=== PATIENT | male | born 1970 | race Caucasian/White ===

== ENCOUNTER 2018-12-03 01:17 | Observation (INO) ==
--- NOTE | 2018-12-03 01:26 | Emergency Department Note ---
ED Disposition Clinical Impression: Chest pain syndrome, Atypical chest pain Disposition: Admitted as Observation Condition on Discharge: Good Referrals: Provider,Referral, [Primary Care Provider] - Time of Disposition: 03:05 - Critical Care Critical Care Time: No Attestation: On , the high probability of a clinically significant, sudden or life threatening deterioration of the following system(s) required my full and direct attention, intervention and personal management. The time I documented below is in addition to time spent performing reported procedures but includes the following listed in this critical care notation. Medical Decision Making - Medical Records Medical records reviewed: Yes: I reviewed the patient's medical records. - Nabil Inquiry Pt receiving controlled substance: No Nabil was queried for this patient: No Vital Signs: 12/03/18 01:21 12/03/18 02:02 12/03/18 02:20 Temperature 97.4 F L Temperature Source Oral Pulse Rate [Left Radial] 90 92 H 98 H Respiratory Rate 18 18 18 Blood Pressure [146/88] 130/72 128/76 Blood Pressure Mean [146/88] 91 93 Blood Pressure Source [146/88] Automatic Cuff 02 Sat by Pulse Oximetry 95 93 L 97 Oxygen Delivery Method Room Air Nasal Cannula Nasal Cannula Oxygen Flow Rate (LPM) 2 2 12/03/18 02:48 Temperature Temperature Source Pulse Rate [Left Radial] 87 Respiratory Rate 18 Blood Pressure [146/88] 138/85 Blood Pressure Mean [146/88] 102 Blood Pressure Source [146/88] Automatic Cuff 02 Sat by Pulse Oximetry 97 Oxygen Delivery Method Nasal Cannula Oxygen Flow Rate (LPM) 2 - Lab Data Lab results reviewed: Yes: I reviewed the patient's lab results. Lab Results 12/03/18 01:20: WBC 8.7, RBC 5.64, Hgb 17.3, Hct 49.1, MCV 87.1, MCH 30.6, MCHC 35.2, RDW 13.2, Plt Count 221, MPV 8.0, Neut % (Auto) 47.6, Lymph % (Auto) 45.7, [place] % (Auto) 5.6, Eos % (Auto) 0.8, Baso % (Auto) 0.3, Neut # (Auto) 4.1, Lymph # (Auto) 4.0, [place] # (Auto) 0.5, Eos # (Auto) 0.1, Baso # (Auto) 0.0 04/10/19 01:20: Sodium 140, Potassium 3.4 L, Chloride 102, Carbon Dioxide 26, Anion Gap 15.4 H, BUN 21 H, Creatinine 0.92, Estimated Creat Clear 142, Estimated GFR 89, Est GFR ( Amer) 107, Glucose 131 H, Calcium 9.4, Troponin I < 0.02 12/03/18 01:20: Lipase 183 12/03/18 02:20: Urine Color Yellow, Urine Appearance Clear, Urine pH 6.0, Ur Specific [place] 1.010, Urine Protein Negative, Urine Glucose (UA) 3+, Urine Ketones Negative, Urine Blood Negative, Urine Nitrate Negative, Urine Bilirubin Negative, Urine Urobilinogen 0.2, Ur Leukocyte Esterase Negative, Urine RBC Occasional, Urine Bacteria 1+ Result diagrams: 12/03/18 01:20 12/03/18 01:20 Orders (Tests/Meds): ED MEDICATIONS Generic Name Dose Route Start Last Admin Trade Name Eula PRN Reason Stop Dose Admin Nitroglycerin 1 gm 12/03/18 02:55 12/03/18 02:57 Nitroglycerin 1 Inch Oint Udp TD 12/03/18 02:56 1 gm ONCE ONE Administration Sodium Chloride 10 ml 12/03/18 01:34 Saline Flush 10ml Syringe IV 01/02/19 01:33 NEEDED PRN Maintain IV Site Discontinued Medications Generic Name Dose Route Start Last Admin Trade Name Frevandana PRN Reason Stop Dose Admin Aspirin 324 mg 12/03/18 01:34 12/03/18 01:40 Aspirin 81mg Enteric Coated Tablet PO 12/03/18 01:35 324 mg ONCE ONE Administration Morphine Sulfate 4 mg 12/03/18 02:04 12/03/18 02:22 Morphine 4mg/Ml Syringe IV 12/03/18 02:05 4 mg ONCE ONE Administration Nitroglycerin 0.4 mg 12/03/18 01:34 12/03/18 01:40 Nitrostat 0.4mg Sl Tablet SL 12/03/18 01:35 0.4 mg ONCE ONE Administration Ondansetron HCl 4 mg 12/03/18 02:05 12/03/18 02:22 Zofran 4mg/2ml Vial IV 12/03/18 02:06 4 mg ONCE ONE Administration ORDERS Category Date Time Status CT Chest w/PE protocol [CT angio chest] Stat Cat Scan 12/03/18 02:07 Ordered XR chest portable Stat Exams 12/03/18 01:40 Taken - Physician Consults Physician Consulted: jerri Time: 03:06 Reason -: Admission, Cardiology Eval/Care Comment/Response: obs, serial troponins Time: 03:07 - YUNI Score for Non-Stemi Age of Patient: 40-49 years old Heart Rate: 90-109 bpm Systolic Blood Pressure: 140-159 mmHg Serum Creatinine: 0.80-1.19 mg/dl CHF [place] Class: I-No CHF Other Risk Factors: None Non-Stemi Risk Score: 71 General Adult HPI - General Stated complaint: Chest pain, SOB Time Seen by Provider: 12/03/18 01:23 Mode of Arrival: Ambulatory Source of Information: Patient Limitations: No Limitations - Related Data Home Medications Medication Instructions Recorded Confirmed Albuterol Sulfate [Albuterol HFA 1 - 2 puffs IH Q4-6H PRN 12/03/18 12/03/18 Inhaler] Buspirone HCl [Buspar 10mg tablet] 0.5 mg PO BID 12/03/18 12/03/18 Citalopram Hydrobromide 20 mg PO BID 12/03/18 12/03/18 [Citalopram HBr] Clopidogrel Bisulfate [Plavix 75mg 75 mg PO DAILY 12/03/18 12/03/18 Tab] Empagliflozin/Linagliptin 1 each PO DAILY 12/03/18 12/03/18 [Glyxambi 25 mg-5 mg Tablet] Lisinopril [Lisinopril 10mg Tab] 10 mg PO DAILY 12/03/18 12/03/18 Metformin HCl 1,000 mg PO BID 12/03/18 12/03/18 hydrOXYzine pamoate [Hydroxyzine 25 mg PO NEEDED PRN 12/03/18 12/03/18 Pamoate] Allergies Allergy/AdvReac Type Severity Reaction Status Date / Time diphenhydramine Allergy Unknown AGITATION Verified 12/03/18 01:36 [From BENADRYL] mirtazapine [From REMERON] Allergy Unknown Verified 12/03/18 01:36 [facility] History - Hepatitis A Screen Attestation statement:: This patient has been screened for Hepatitis A risk factors. I have reviewed the patient's past medical history: Yes ROS Obtained: Yes All systems reviewed & no additional complaints - Constitutional Constitutional: Denies fever(s) - Eyes Eyes: Denies blurry vision - Cardiovascular Cardiovascular: Reports chest pain, Reports chest pain at rest, Reports dyspnea, Denies rapid heart rate, Denies slow heart rate - Respiratory Respiratory: Yes system reviewed and no additional complaints, except as docu, Yes chest congestion, No cough Physical Exam - General General appearance: alert, in distress, other (breath holding, apparently in pain lower sternal.) - Head Head exam: atraumatic, normocephalic, normal inspection - Eye Eye exam: Present: other (dysconjugate gaze, chronic) - ENT ENT exam: Present: normal exam, normal oropharynx, mucous membranes moist, TM's normal bilaterally, normal external ear exam, other (poor dentition) - Neck Neck exam: Present: normal inspection, full ROM, trachea midline. Absent: meningismus, lymphadenopathy - Chest Chest inspection: Present: normal inspection, symmetric chest wall rise, tenderness, other (entire sternal area, mild) - Respiratory Respiratory exam: Present: normal lung sounds bilaterally. Absent: respiratory distress, wheezes - Cardiovascular Cardiovascular exam: Present: regular rate, normal rhythm - Abdominal Exam Abdominal exam: Present: soft. Absent: distention, tenderness, guarding, rebound - Extremities Exam Extremities exam: Present: normal inspection, full ROM, normal capillary refill. Absent: calf tenderness - Back Exam Back exam: Present: normal inspection - Neurological Exam Neurological exam: Present: alert, oriented X3 - Skin Skin exam: Present: warm, dry, intact, normal color - Lymphatic Lymphatic Findings: no adenopathy
[2018-12-03 01:48] LABS: Basophils % 0.3 % (0.1-2.0); Eosinophils # 0.1 K/mm3 (0.0-0.4); Eosinophils % 0.8 % (0.1-12.0); Hematocrit 49.1 % (42.0-52.0); Hemoglobin 17.3 g/dL (14.1-18.0); Lymphocytes % 45.7 % (10-50); Mean Corpuscular HGB Conc 35.2 g/dL (31.8-35.4); Mean Corpuscular Hemoglobin 30.6 pg (27.0-31.2); Mean Corpuscular Volume 87.1 fl (80-94); Monocytes # 0.5 K/mm3 (0.1-1.0); Monocytes % 5.6 % (1.7-9.3); Neutrophils # 4.1 K/mm3 (1.8-7.8); Neutrophils % 47.6 % (37.0-80.0); Platelet Count 221 K/mm3 (142-424); Red Blood Count 5.64 M/mm3 (4.60-6.20); Red Cell Distribution Width 13.2 % (11.5-17.5); White Blood Count 8.7 K/mm3 (4.8-10.8)
[2018-12-03 02:01] LABS: Anion Gap 15.4 mEq/L (5-15); Blood Urea Nitrogen 21 mg/dL (7-18); Calcium 9.4 mg/dL (8.5-10.1); Carbon Dioxide 26 mmol/L (21.0-32.0); Chloride 102 mmol/L (98-107); Glucose 131 mg/dL (74-106); Potassium 3.4 mmoL/L (3.5-5.1); Sodium 140 mmol/L (136-145)
[2018-12-03 02:26] LABS: Microscopic, Urine URINE MICROSCOPIC (MICROSCOPIC)
[2018-12-03 02:28] LABS: Appearance,Urine CLEAR (Clear); Bilirubin,Urine Negative (Negative); Blood, Urine Negative (Negative); Color,Urine YELLOW (Yellow); Glucose,Urine (UA) 3+ (Negative); Ketones,Urine Negative (Negative); Leukocyte Esterase,Urine Negative (Negative); Protein,Urine Negative (Negative); Urobilinogen,Urine 0.2 EU/dl (0.2)
[2018-12-03 02:40] LABS: Bacteria,Urine 1+ /lpf; RBC,Urine Occasional #/hpf (0-3)
[2018-12-03 06:17] LABS: Basophils % 0.5 % (0.1-2.0); Eosinophils # 0.1 K/mm3 (0.0-0.4); Eosinophils % 1.1 % (0.1-12.0); Hematocrit 46.7 % (42.0-52.0); Hemoglobin 15.9 g/dL (14.1-18.0); Lymphocytes # 3.6 K/mm3 (0.7-4.5); Lymphocytes % 44.9 % (10-50); Mean Corpuscular Hemoglobin 30.1 pg (27.0-31.2); Mean Corpuscular Volume 88.5 fl (80-94); Mean Platelet Volume 7.9 fl (7.4-10.4); Monocytes # 0.5 K/mm3 (0.1-1.0); Monocytes % 6.4 % (1.7-9.3); Neutrophils # 3.7 K/mm3 (1.8-7.8); Platelet Count 228 K/mm3 (142-424); Red Blood Count 5.27 M/mm3 (4.60-6.20); Red Cell Distribution Width 13.4 % (11.5-17.5); White Blood Count 7.9 K/mm3 (4.8-10.8)
[2018-12-03 06:44] LABS: Anion Gap 11.2 mEq/L (5-15); Blood Urea Nitrogen 21 mg/dL (7-18); Calcium 8.9 mg/dL (8.5-10.1); Carbon Dioxide 29 mmol/L (21.0-32.0); Chloride 104 mmol/L (98-107); Glucose 114 mg/dL (74-106); Potassium 4.2 mmoL/L (3.5-5.1); Sodium 140 mmol/L (136-145)
--- NOTE | 2018-12-03 07:52 | Pharmacy Consult Notes ---
[facility] Pharmacy VTE Monitoring - Patient Demographics Admission date: 12/03/18 Report Date: 12/03/18 Time: 07:51 Allergies/Adverse Reactions: Patient Allergies diphenhydramine [From BENADRYL] Allergy (Unknown, Verified 12/03/18 01:36) AGITATION mirtazapine [From REMERON] Allergy (Unknown, Verified 12/03/18 01:36) Height: 1.78 m Weight: 100.754 kg Patient Problems: Current Active Problems Chest pain syndrome (Acute) Atypical chest pain (Acute) - VTE Risk Labs: VTE Related Lab Results Hgb 15.9 g/dL (14.1-18.0) 12/03/18 05:28 Hct 46.7 % (42.0-52.0) 12/03/18 05:28 Plt Count 228 K/mm3 (142-424) 12/03/18 05:28 BUN 21 mg/dL (7-18) H 12/03/18 05:28 Creatinine 0.92 mg/dL (0.70-1.30) 12/03/18 05:28 Estimated Creat Clear 143 mL/min (50-200) 12/03/18 05:28 VTE Score: 2 VTE Risk Level: Low Risk - Prophylaxis VTE Prophylaxis Ordered?: Yes Types of VTE Prophylaxis: TEDS Knee High Location of Applied Device: Bilateral Lower Extremeties - VTE Diagnosis Confirmed Treatment or plan recommended: Continue Current Treatment
--- NOTE | 2018-12-03 07:57 | History & Physical Report ---
*Admission Date: 12/03/18 *Chief complaint: Chest pain, cough *History of present illness: 48-year-old white male with history of as burgers syndrome and coronary disease, status post stenting of his LAD in 2017, who came to the emergency department with very sharp chest pain that was both exertionally and respiratory related. In the ER he had somewhat of a confusing clinical picture, with some shadowing in his lung bases on CT scan but poor response to Toradol in regards to his sternal pain. Given his history of coronary disease and exertional pain he was admitted to hospital for serial enzymes and rule out SD. [facility] History I have reviewed the patient's past medical history: Yes Medical History: Reports:: Coronary Artery Disease, Diabetes Mellitus Type 2, Hypertension Denies:: Cancer, Diabetes Mellitus Type 1, MRSA *Have you ever received a pneumonia vaccine?: No *Have you received a flu vaccine this season?: No Laterality Cases: Bilateral: Tonsillectomy Other Surgeries: Yes: Hernia Repair Amputation: No - *Social History Smoking Status: Never smoker Alcohol Intake: never Alcohol Intake Frequency:: holidays/special occasions only *Occupational Status:: disabled *Travel in the last 8 weeks: None - Psychiatric History Expresses thoughts of harming self/others: None Suicide Plan Description: No Plan Family Hx:: No significant family history Review of Systems - Review of Systems Review of systems:: pertinent systems reviewed and negative unless documented below - Constitutional Denies anorexia, Denies body ache(s) - Eyes Denies blind spots - ENT Denies abnormal hearing, Denies bleeding gums - *Cardiovascular Reports chest pain, Reports chest pain at rest, Reports shortness of breath, Denies shortness of breath with activity - *Respiratory Denies change in phlegm color, Denies chest congestion, Denies cough - *Gastrointestinal Reports abdominal pain, Reports belching - *Genitourinary Reports difficulty urinating Meds Home Medications Medication Instructions Recorded Confirmed Type Albuterol Sulfate [Albuterol HFA 1 - 2 puffs IH Q4-6H PRN 12/03/18 12/03/18 History Inhaler] Buspirone HCl [Buspar 10mg tablet] 0.5 mg PO BID 12/03/18 12/03/18 History Citalopram Hydrobromide 20 mg PO BID 12/03/18 12/03/18 History [Citalopram HBr] Clopidogrel Bisulfate [Plavix 75mg 75 mg PO DAILY 12/03/18 12/03/18 History Tab] Empagliflozin/Linagliptin 1 each PO DAILY 12/03/18 12/03/18 History [Glyxambi 25 mg-5 mg Tablet] Lisinopril [Lisinopril 10mg Tab] 10 mg PO DAILY 12/03/18 12/03/18 History Metformin HCl 1,000 mg PO BID 12/03/18 12/03/18 History hydrOXYzine pamoate [Hydroxyzine 25 mg PO NEEDED PRN 12/03/18 12/03/18 History Pamoate] Allergies Allergy/AdvReac Type Severity Reaction Status Date / Time diphenhydramine Allergy Unknown AGITATION Verified 12/03/18 01:36 [From BENADRYL] mirtazapine [From REMERON] Allergy Unknown Verified 12/03/18 01:36 Exam Vital signs and Labs for Last 24 Hours: Temp Pulse Resp BP Pulse Ox 98.7 F 77 17 114/67 97 12/03/18 07:16 12/03/18 07:16 12/03/18 07:16 12/03/18 07:16 12/03/18 07:16 Laboratory Results - last 24 hr 12/03/18 01:20: WBC 8.7, RBC 5.64, Hgb 17.3, Hct 49.1, MCV 87.1, MCH 30.6, MCHC 35.2, RDW 13.2, Plt Count 221, MPV 8.0, Neut % (Auto) 47.6, Lymph % (Auto) 45.7, [place] % (Auto) 5.6, Eos % (Auto) 0.8, Baso % (Auto) 0.3, Neut # (Auto) 4.1, Lymph # (Auto) 4.0, [place] # (Auto) 0.5, Eos # (Auto) 0.1, Baso # (Auto) 0.0 12/03/18 01:20: Sodium 140, Potassium 3.4 L, Chloride 102, Carbon Dioxide 26, Anion Gap 15.4 H, BUN 21 H, Creatinine 0.92, Estimated Creat Clear 142, Estimated GFR 89, Est GFR ( Amer) 107, Glucose 131 H, Calcium 9.4, Troponin I < 0.02 04/10/19 01:20: Lipase 183 12/03/18 02:20: Urine Color Yellow, Urine Appearance Clear, Urine pH 6.0, Ur Specific [place] 1.010, Urine Protein Negative, Urine Glucose (UA) 3+, Urine Ketones Negative, Urine Blood Negative, Urine Nitrate Negative, Urine Bilirubin Negative, Urine Urobilinogen 0.2, Ur Leukocyte Esterase Negative, Urine RBC Occasional, Urine Bacteria 1+ 12/03/18 05:28: WBC 7.9, RBC 5.27, Hgb 15.9, Hct 46.7, MCV 88.5, MCH 30.1, MCHC 34.0, RDW 13.4, Plt Count 228, MPV 7.9, Neut % (Auto) 47.0, Lymph % (Auto) 44.9, [place] % (Auto) 6.4, Eos % (Auto) 1.1, Baso % (Auto) 0.5, Neut # (Auto) 3.7, Lymph # (Auto) 3.6, [place] # (Auto) 0.5, Eos # (Auto) 0.1, Baso # (Auto) 0.0 12/03/18 05:28: Sodium 140, Potassium 4.2 D, Chloride 104, Carbon Dioxide 29, Anion Gap 11.2, BUN 21 H, Creatinine 0.92, Estimated Creat Clear 143, Estimated GFR 89, Est GFR ( Amer) 107, Glucose 114 H, Calcium 8.9, Troponin I < 0.02 I & O for Last 24 hours: Intake & Output 11/30/18 12/01/18 12/02/18 12/03/18 11:59 11:59 11:59 11:59 Intake Total 322 / 322 Balance 322 / 322 Weight 222 lb 2 oz Narrative: Patient is pleasant, talkative, in no distress but pain in chest on inspiration. ENT exam clear. No JVD. Abdomen soft nontender. Significant sternal pain with palpation on the left sternal border. Lungs with good air expansion bilaterally. Heart rate regular without murmurs. No peripheral edema. Assessment and Plan (1) Pneumonitis Current visit: Yes Status: Acute Category: Medical Code(s): J18.9 - Pneumonia, unspecified organism Questionable viral versus poor inspiration. Azithromycin for atypical pathogens. (2) Atypical chest pain Current visit: Yes Status: Acute Category: Medical Code(s): R07.89 - Other chest pain SD ruled out. Cardiology evaluation. Given patient's significant risk factors needs significant evaluation (3) Chest pain syndrome Current visit: Yes Status: Acute Category: Medical Code(s): R07.9 - Chest pain, unspecified Patient with possible sternal irritation/costochondritis. Solu-Medrol and Toradol.
--- NOTE | 2018-12-03 08:30 | Consult Report ---
History of Present Illness Consult date: 12/03/18 Requesting physician: Cayetano Spence Consult reason: chest pain Chief complaint: chest pain Additional Medical History:: 1. DM 2. HTN 3. CAD A. LAD SKYLAR, 01/07/2017, On DAPT. 4. Asberger's Syndrome 5. Hyperlipidemia History of present illness: 48-year-old white male with history of asburgers syndrome and coronary disease, status post stenting of his LAD in 2017, who came to the emergency department with very sharp chest pain that was both exertionally and respiratory related. In the ER he had somewhat of a confusing clinical picture, with some shadowing in his lung bases on CT scan but poor response to Toradol in regards to his sternal pain. Given his history of coronary disease and exertional pain he was admitted to hospital for serial enzymes and rule out GA. The above per Dr. Spence. Patient and relate that he was grilling out yesterday when he developed some shortness of breath after brief headache. Symptoms as noted above were both exertionally and respiratory exacerbated. Nitroglycerin at home did not seem to help and patient was brought to the emergency department for further evaluation. Troponins are normal x2. EKG is sinus without acute ST segment changes. Cardiology consulted for evaluation and recommendations. [facility] History Medical History: Reports:: Coronary Artery Disease, Diabetes Mellitus Type 2, Hypertension Denies:: Cancer, Diabetes Mellitus Type 1, MRSA *Have you ever received a pneumonia vaccine?: No *Have you received a flu vaccine this season?: No Laterality Cases: Bilateral: Tonsillectomy Other Surgeries: Yes: Hernia Repair Amputation: No - *Social History Smoking Status: Never smoker Alcohol Intake: never Alcohol Intake Frequency:: holidays/special occasions only *Occupational Status:: disabled *Travel in the last 8 weeks: None - Psychiatric History Expresses thoughts of harming self/others: None Suicide Plan Description: No Plan Family Hx:: No significant family history Meds Home Medications Medication Instructions Recorded Confirmed Type Albuterol Sulfate [Albuterol HFA 1 - 2 puffs IH Q4-6H PRN 12/03/18 12/03/18 History Inhaler] Buspirone HCl [Buspar 10mg tablet] 0.5 mg PO BID 12/03/18 12/03/18 History Citalopram Hydrobromide 20 mg PO BID 12/03/18 12/03/18 History [Citalopram HBr] Clopidogrel Bisulfate [Plavix 75mg 75 mg PO DAILY 12/03/18 12/03/18 History Tab] Empagliflozin/Linagliptin 1 each PO DAILY 12/03/18 12/03/18 History [Glyxambi 25 mg-5 mg Tablet] Lisinopril [Lisinopril 10mg Tab] 10 mg PO DAILY 12/03/18 12/03/18 History Metformin HCl 1,000 mg PO BID 12/03/18 12/03/18 History hydrOXYzine pamoate [Hydroxyzine 25 mg PO NEEDED PRN 12/03/18 12/03/18 History Pamoate] Allergies Allergy/AdvReac Type Severity Reaction Status Date / Time diphenhydramine Allergy Unknown AGITATION Verified 12/03/18 01:36 [From BENADRYL] mirtazapine [From REMERON] Allergy Unknown Verified 12/03/18 01:36 Review of Systems - *Cardiovascular Reports chest pain, Reports shortness of breath with activity - *Respiratory Reports shortness of breath with activity - *Gastrointestinal Denies abdominal pain, Denies nausea - *Musculoskeletal Denies joint pain, Denies back pain - *Neurologic Denies abnormal hearing Exam Vital signs and Labs for Last 24 Hours: Temp Pulse Resp BP Pulse Ox 98.7 F 77 17 114/67 97 12/03/18 07:16 12/03/18 07:16 12/03/18 07:16 12/03/18 07:16 12/03/18 07:16 Laboratory Results - last 24 hr 12/03/18 01:20: WBC 8.7, RBC 5.64, Hgb 17.3, Hct 49.1, MCV 87.1, MCH 30.6, MCHC 35.2, RDW 13.2, Plt Count 221, MPV 8.0, Neut % (Auto) 47.6, Lymph % (Auto) 45.7, [place] % (Auto) 5.6, Eos % (Auto) 0.8, Baso % (Auto) 0.3, Neut # (Auto) 4.1, Lymph # (Auto) 4.0, [place] # (Auto) 0.5, Eos # (Auto) 0.1, Baso # (Auto) 0.0 12/03/18 01:20: Sodium 140, Potassium 3.4 L, Chloride 102, Carbon Dioxide 26, Anion Gap 15.4 H, BUN 21 H, Creatinine 0.92, Estimated Creat Clear 142, Estimated GFR 89, Est GFR ( Amer) 107, Glucose 131 H, Calcium 9.4, Troponin I < 0.02 12/03/18 01:20: Lipase 183 12/03/18 02:20: Urine Color Yellow, Urine Appearance Clear, Urine pH 6.0, Ur Specific [place] 1.010, Urine Protein Negative, Urine Glucose (UA) 3+, Urine Ketones Negative, Urine Blood Negative, Urine Nitrate Negative, Urine Bilirubin Negative, Urine Urobilinogen 0.2, Ur Leukocyte Esterase Negative, Urine RBC Occasional, Urine Bacteria 1+ 12/03/18 05:28: WBC 7.9, RBC 5.27, Hgb 15.9, Hct 46.7, MCV 88.5, MCH 30.1, MCHC 34.0, RDW 13.4, Plt Count 228, MPV 7.9, Neut % (Auto) 47.0, Lymph % (Auto) 44.9, [place] % (Auto) 6.4, Eos % (Auto) 1.1, Baso % (Auto) 0.5, Neut # (Auto) 3.7, Lymph # (Auto) 3.6, [place] # (Auto) 0.5, Eos # (Auto) 0.1, Baso # (Auto) 0.0 12/03/18 05:28: Sodium 140, Potassium 4.2 D, Chloride 104, Carbon Dioxide 29, Anion Gap 11.2, BUN 21 H, Creatinine 0.92, Estimated Creat Clear 143, Estimated GFR 89, Est GFR ( Amer) 107, Glucose 114 H, Calcium 8.9, Troponin I < 0.02 I & O for Last 24 hours: Intake & Output 11/30/18 12/01/18 12/02/18 12/03/18 11:59 11:59 11:59 11:59 Intake Total 322 / 322 Balance 322 / 322 Weight 222 lb 2 oz - *Routine HEENT Exam Head: Present: normocephalic Eye: Present: EOMI, PERRL ENT: Present: mucous membranes moist - *Routine Neck Exam Present: supple. Absent: JVD, carotid bruit - *Routine Respiratory Exam Present: CTA bilaterally. Absent: accessory muscle use, rales, rhonchi, wheezes - *Routine Cardiovascular Exam Present: RRR. Absent: murmur, gallop, rubs - *Routine Abdominal Exam Present: soft. Absent: tenderness, distended, guarding - *Routine Extremities Exam Absent: edema, calf tenderness - *Routine Neurological Exam Present: alert, oriented X3, moving all extremities Assessment and Plan (1) Pneumonitis Current visit: Yes Status: Acute Category: Medical Code(s): J18.9 - Pneumonia, unspecified organism (2) Atypical chest pain Current visit: Yes Status: Acute Category: Medical Code(s): R07.89 - Other chest pain (3) Chest pain syndrome Current visit: Yes Status: Acute Category: Medical Code(s): R07.9 - Chest pain, unspecified - Assessment and plan all Dx Assessment and Plan for all problems:: 1. With history of LAD stent in this diabetic patient with HTN, HLD and asberger's syndrome, which complicates the clinical picture, will recommend proceeding with [facility] today for further evaluation. 2. Further recommendations to follow.
--- NOTE | 2018-12-03 17:24 | Discharge Summary ---
General - General Admission date:: 12/03/18 Discharge date: 12/03/18 HPI HPI: 48-year-old white male with history of as burgers syndrome and coronary disease, status post stenting of his LAD in 2017, who came to the emergency department with very sharp chest pain that was both exertionally and respiratory related. In the ER he had somewhat of a confusing clinical picture, with some shadowing in his lung bases on CT scan but poor response to Toradol in regards to his sternal pain. Given his history of coronary disease and exertional pain he was admitted to hospital for serial enzymes and rule out MD. Hospital Course Hospital Course: Patient was admitted, ruled out for myocardial infarction by enzyme and EKG criteria. Administered azithromycin and Solu-Medrol because of pneumonitis finding on CT scan with some improvement in his substernal/left-sided sternal border pain. He was subjected to left heart catheterization because of significant history and pattern of pain, this revealed the following findings: NGIOGRAPHIC RESULTS: 1. The left main artery normal 2. The left anterior descending artery is proximally normal and has a stent in the mid segment widely patent free of in-stent restenosis with excellent sizing distal and proximal transitioning. 3. The circumflex artery is a large dominant vessel and normal 4. The right coronary artery small and normal 5. The DEWEY ventriculogram reveals normal 65% 6. The left ventricular end-diastolic pressure 10 mmHg IMPRESSION: 1. Widely patent mid LAD stent 2. Normal ejection fraction 3. Normal left ventricular end-diastolic pressure PLAN: 1. Medical management 2. Evaluation of noncardiac symptomatology Patient tolerated the procedure well and this evening was able to be discharged home. He will be discharged home with prednisone for 5 days, azithromycin to finish up antibiotic therapy, anti-inflammatory therapy for his costochondritis- like pain as well as a refill of his Prilosec that he takes chronically. He has an appointment with his regular physician, Dr. Johnson in [place] next Saturday and I have encouraged him to keep this. We will transmit records to Dr. Johnson's office. Objective Vital signs: Temp Pulse Resp BP Pulse Ox 98.0 F 71 18 107/63 L 96 12/03/18 15:41 12/03/18 16:20 12/03/18 16:20 12/03/18 16:20 12/03/18 16:20 Narrative: Patient is pleasant, talkative, eating supper vigorously. Heart rate regular. No murmurs. Radial cath site on the right arm is on a pressure dressing and looks appropriate. Normal distal capillary refill in both hands. No distal edema in the legs. Abdomen soft and nontender. Anterior lung khan are clear. Minimal left-sided sternal border tenderness but vastly improved over previous exams. Results Labs on day of discharge: Labs from last 24 hours 12/03/18 12/03/18 12/03/18 09:30 05:28 05:28 WBC 7.9 RBC 5.27 Hgb 15.9 Hct 46.7 MCV 88.5 MCH 30.1 MCHC 34.0 RDW 13.4 Plt Count 228 MPV 7.9 Neut % (Auto) 47.0 Lymph % (Auto) 44.9 [place] % (Auto) 6.4 Eos % (Auto) 1.1 Baso % (Auto) 0.5 Neut # (Auto) 3.7 Lymph # (Auto) 3.6 [place] # (Auto) 0.5 Eos # (Auto) 0.1 Baso # (Auto) 0.0 Sodium 140 Potassium 4.2 D Chloride 104 Carbon Dioxide 29 Anion Gap 11.2 BUN 21 H Creatinine 0.92 Estimated Creat Clear 143 Estimated GFR 89 Est GFR ( Amer) 107 Glucose 114 H Calcium 8.9 Troponin I < 0.02 < 0.02 Lipase Urine Color Urine Appearance Urine pH Ur Specific [place] Urine Protein Urine Glucose (UA) Urine Ketones Urine Blood Urine Nitrate Urine Bilirubin Urine Urobilinogen Ur Leukocyte Esterase Urine RBC Urine Bacteria 12/03/18 12/03/18 12/03/18 02:20 01:20 01:20 WBC RBC Hgb Hct MCV MCH MCHC RDW Plt Count MPV Neut % (Auto) Lymph % (Auto) [place] % (Auto) Eos % (Auto) Baso % (Auto) Neut # (Auto) Lymph # (Auto) [place] # (Auto) Eos # (Auto) Baso # (Auto) Sodium 140 Potassium 3.4 L Chloride 102 Carbon Dioxide 26 Anion Gap 15.4 H BUN 21 H Creatinine 0.92 Estimated Creat Clear 142 Estimated GFR 89 Est GFR ( Amer) 107 Glucose 131 H Calcium 9.4 Troponin I < 0.02 Lipase 183 Urine Color Yellow Urine Appearance Clear Urine pH 6.0 Ur Specific [place] 1.010 Urine Protein Negative Urine Glucose (UA) 3+ Urine Ketones Negative Urine Blood Negative Urine Nitrate Negative Urine Bilirubin Negative Urine Urobilinogen 0.2 Ur Leukocyte Esterase Negative Urine RBC Occasional Urine Bacteria 1+ 12/03/18 01:20 WBC 8.7 RBC 5.64 Hgb 17.3 Hct 49.1 MCV 87.1 MCH 30.6 MCHC 35.2 RDW 13.2 Plt Count 221 MPV 8.0 Neut % (Auto) 47.6 Lymph % (Auto) 45.7 [place] % (Auto) 5.6 Eos % (Auto) 0.8 Baso % (Auto) 0.3 Neut # (Auto) 4.1 Lymph # (Auto) 4.0 [place] # (Auto) 0.5 Eos # (Auto) 0.1 Baso # (Auto) 0.0 Sodium Potassium Chloride Carbon Dioxide Anion Gap BUN Creatinine Estimated Creat Clear Estimated GFR Est GFR ( Amer) Glucose Calcium Troponin I Lipase Urine Color Urine Appearance Urine pH Ur Specific [place] Urine Protein Urine Glucose (UA) Urine Ketones Urine Blood Urine Nitrate Urine Bilirubin Urine Urobilinogen Ur Leukocyte Esterase Urine RBC Urine Bacteria DS: Diagnosis - Discharge Diagnosis (1) Pneumonitis Status: Acute (2) Atypical chest pain Status: Resolved (3) Chest pain syndrome Status: Resolved Discharge Plan - Patient Discharge Instructions ACTIVITY: Continue current activity DIET: continue same diet Patient Instructions: Cardiac Catheterization, DI for Atypical Chest Pain, Surgical Site Infection - Follow up Plan Follow up with: Sandeep Johnson II, MD [Referring] - 12/09/18 Disposition: Home, Self-Group Home Medications: Home Medications Medication Instructions Recorded Confirmed Type Albuterol Sulfate [Albuterol HFA 1 - 2 puffs IH Q4-6H PRN 12/03/18 12/03/18 History Inhaler] Aspirin [Aspirin 81mg EC Tab] 81 mg PO DAILY 12/03/18 12/03/18 History Azithromycin [Zithromax 250mg 250 mg PO DIRECTED #6 tab 12/03/18 Rx tab] Buspirone HCl [Buspar 10mg tablet] 5 mg PO DAILY 12/03/18 12/03/18 History Cetirizine HCl [Zyrtec] 10 mg PO DAILY 12/03/18 12/03/18 History Citalopram Hydrobromide 20 mg PO BID 12/03/18 12/03/18 History [Citalopram HBr] Clopidogrel Bisulfate [Plavix 75mg 75 mg PO DAILY 12/03/18 12/03/18 History Tab] Empagliflozin/Linagliptin 1 each PO DAILY 12/03/18 12/03/18 History [Glyxambi 25 mg-5 mg Tablet] Ketorolac Tromethamine [Toradol 10 mg PO Q6H PRN 5 Days #15 tablet 12/03/18 Rx 10mg tablet] Lisinopril [Lisinopril 10mg Tab] 10 mg PO DAILY 12/03/18 12/03/18 History Metformin HCl 1,000 mg PO BID 12/03/18 12/03/18 History Omeprazole Magnesium [Prilosec Otc 20 mg PO DAILY #30 tablet. 12/03/18 Rx 20mg Tab] hydrOXYzine HCl [Hydroxyzine HCl] 25 mg PO DAILY 12/03/18 12/03/18 History predniSONE [Deltasone 20mg 20 mg PO BID 7 Days #14 tab 12/03/18 Rx tablet] Prescriptions/Medication Reconciliation: New Ketorolac Tromethamine [Toradol 10mg tablet] 10 mg PO Q6H PRN 5 Days #15 tablet PRN Reason: Moderate To Severe Pain predniSONE [Deltasone 20mg tablet] 20 mg PO BID 7 Days #14 tab Azithromycin [Zithromax 250mg tab] 250 mg PO DIRECTED #6 tab Continue Buspirone HCl [Buspar 10mg tablet] 5 mg PO DAILY Albuterol Sulfate [Albuterol HFA Inhaler] 1 - 2 puffs IH Q4-6H PRN PRN Reason: Shortness Of Breath Or Wheezing Metformin HCl 1,000 mg PO BID Lisinopril [Lisinopril 10mg Tab] 10 mg PO DAILY Clopidogrel Bisulfate [Plavix 75mg Tab] 75 mg PO DAILY Citalopram Hydrobromide [Citalopram HBr] 20 mg PO BID Empagliflozin/Linagliptin [Glyxambi 25 mg-5 mg Tablet] 1 each PO DAILY Aspirin [Aspirin 81mg EC Tab] 81 mg PO DAILY Cetirizine HCl [Zyrtec] 10 mg PO DAILY hydrOXYzine HCl [Hydroxyzine HCl] 25 mg PO DAILY Omeprazole Magnesium [Prilosec Otc 20mg Tab] 20 mg PO DAILY #30 tablet.
== END 2018-12-03 20:53 | disposition home or self-care (01) ==
LOC: ER 01:17 → 2ND 01:17
PROVIDERS: ADMIT Internal Medicine Adolescent Medicine; ATTEND Internal Medicine Adolescent Medicine
CPT/HCPCS: 36415; 71010; 71045; 71275; 80048; 81001; 83690; 84484; 85025; 93005; 93458; 96374; 96375; 99152; 99285; C1725; C1760; C1769; G0378; J0456; J1644; J2405; Q9967

== ENCOUNTER → 2019-03-30 09:30 | Outpatient (POV) | payer MEDICARE, SELFPAY ==
[2019-03-30 11:15] LABS: Adenovirus F 40/41, stool Not Detected (NotDetected); Astrovirus Not Detected (NotDetected); Campylobacter Not Detected (NotDetected); Clostridium Difficile A/B, PCR Not Detected (NotDetected); Cryptosporidium Not Detected (NotDetected); Cyclospora Cayetanesis Not Detected (NotDetected); Entamoeba histolytica Not Detected (NotDetected); Enteroaggregative E coli Not Detected (NotDetected); Enteropathogenic E coli Not Detected (NotDetected); Enterotoxigenic E coli Not Detected (NotDetected); Giardia lamblia Not Detected (NotDetected); Norovirus Not Detected (NotDetected); Plesimonas Shigalloides, PCR Not Detected (NotDetected); Rotavirus A Not Detected (NotDetected); Salmonella, PCR Not Detected (NotDetected); Sapovirus Not Detected (NotDetected); Shiga-like toxin E coli Not Detected (NotDetected); Shigella Enterovasive E coli Not Detected (NotDetected); Vibrio Cholerae Not Detected (NotDetected); Vibrio, PCR Not Detected (NotDetected); Yersinia Entercolitica, PCR Not Detected (NotDetected)
== END ==
PROVIDERS: PCP Internal Medicine Infectious Disease; Visit Provider Nurse Practitioner Family
DX: R19.7 Diarrhea, unspecified (principal)
CPT/HCPCS: 87506

== ENCOUNTER → 2019-05-11 14:56 | Outpatient (POV) | payer MEDICARE, SELFPAY | PROVIDERS: PCP Internal Medicine Infectious Disease; Visit Provider Nurse Practitioner Family | DX: Z00.00 Encounter for general adult medical examination without abnormal findings (principal) ==

== ENCOUNTER 2020-12-11 18:58 | Emergency (ER) | payer MEDICARE, SELFPAY ==
[2020-12-11 19:00] VITALS: BP 130/84; PULSE 90; RESP 21; TEMP 37.1; O2SAT 98; BMI 30.1
--- NOTE | 2020-12-11 19:04 | XR_ITS ---
PROCEDURE: XR SHOULDER LT MIN 2V CLINICAL INDICATION: INJURY Posttraumatic pain COMPARISON: No exams were available for comparison FINDINGS: No fracture or dislocation. No lytic or blastic change. There is normal mineralization. There is an old left 2nd rib fracture. The joint spaces are well-preserved. No significant degenerative/arthritic changes. No erosive changes evident. Other findings:None. IMPRESSION: No acute findings. Dictated by: Sandeep Jauregui MD 12/12/2020 06:06 Sandeep Jauregui MD in [place] 12/12/2020 06:06
--- NOTE | 2020-12-11 19:04 | XR_ITS ---
PROCEDURE: XR LUMBAR SPINE 2-3V CLINICAL INDICATION: INJURY Posttraumatic pain COMPARISON: CT ABDPELW CT ABD PELVIS W/ CONTRAST from 02/04/2015 FINDINGS: Mild levoscoliosis. No acute fracture or dislocation. Degenerative disc disease is present at L5-S1. Facet arthritic changes are present at L5-S1 with bony sclerosis IMPRESSION: No acute findings. Dictated by: Sandeep Jauregui MD 12/12/2020 06:04 Sandeep Jauregui MD in [place] 12/12/2020 06:04
--- NOTE | 2020-12-11 19:45 | HMH.EDUTC ---
[facility] [place] Clinical Impression: Shoulder sprain Qualifiers: Encounter type: initial encounter Shoulder sprain type: unspecified sprain Laterality: left Qualified Code(s): S43.402A - Unspecified sprain of left shoulder joint, initial encounter Disposition: Home, Self-Care Condition on Discharge: Good Instructions: How To Perform RICE (Rest, Ice, Compress, Elevate), DI for Low Back Pain, Contusion Additional Instructions: *Ibuprofen yanely 6 hours with meal as needed for pain/inflammation if your doctor has told you that you can take it *Not additional anti-inflammatory like motrin, aleve, advil with the above amount of ibuprofen. You can still take Tylenol every 4 hours as needed if you need something else for pain *Ice 20 minutes every 2 hours for the first 48 hours after the initial injury followed by moist heat every 20 minutes 3-4 times a day to affected area *Keep this area active, no movement leads to more stiffness, However take it easy and avoid heavy lifting pushing or pulling *Follow up with you family doctor if no improvement for further treatment Dr Castano office will call with appointment Return if needed Straight to ER if any life threatening symptoms Referrals: Sandeep Johnson II, MD [Primary Care Provider] - As needed Kina Castano MD [Physician] - (Office will call with appointment) Time of Disposition: 20:26 Medical Decision Making - Nabil Inquiry Pt receiving controlled substance: No Nabil was queried for this patient: No Vital Signs: 12/11/20 19:00 Temperature 98.8 F Temperature Source Oral Pulse Rate [Right Brachial] 90 Respiratory Rate 21 Blood Pressure [Right Arm] 130/84 Blood Pressure Mean [Right Arm] 99 Blood Pressure Source [Right Arm] Automatic Cuff Blood Pressure Position [Right Arm] Sitting 02 Sat by Pulse Oximetry 98 Oxygen Delivery Method Room Air Orders (Tests/Meds): ORDERS Category Date Time Status Lumbar spine XR 2-3 views [XR lumbar spine 2-3V] Stat Exams 12/11/20 19:04 Taken XR shoulder LT 1V Stat Exams 12/11/20 20:07 Taken XR shoulder LT min 2V Stat Exams 12/11/20 19:04 Taken - Radiology Data #1 Image(s): Shoulder Image Reviewed: Yes I reviewed the patient's radiology image Preliminary Findings: No Fracture Seen No acute fracture #2 Image(s): L-Spine Image Reviewed: Yes I reviewed the patient's radiology image No acute finding - Physician Consults Physician Consulted: Omaira Time: 20:26 Reason -: Orthopedic Eval/Care Comment/Response: Patient discussed with Dr Castano and she advised to place in sling, RICE and office will call with appointment [facility] [place] - General Stated complaint: [id number]/18@1300 r shoulder injury Time Seen by Provider: 12/11/20 19:45 Mode of Arrival: Ambulatory Source of Information: Patient, Spouse Limitations: No Limitations Description of Symptoms (Recalled from Triage Doc. 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
--- NOTE | 2020-12-11 20:07 | XR_ITS ---
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 COMPARISON: CR XR SHOULDER LT MIN 2V from 12/11/2020 FINDINGS: No fracture or dislocation. No lytic or blastic change. There is normal mineralization. The joint spaces are well-preserved. No significant degenerative/arthritic changes. No erosive changes evident. Other findings:None. IMPRESSION: No acute findings. Dictated by: Sandeep Jauregui MD 12/12/2020 05:55 Sandeep Jauregui MD in [place] 12/12/2020 05:55
[2020-12-11 20:31] VITALS: BP 130/84; PULSE 90; RESP 21; TEMP 37.1; O2SAT 98
== END 2020-12-11 20:32 | disposition home or self-care (01) ==
PROVIDERS: Emergency Provider Nurse Practitioner; PCP Internal Medicine Infectious Disease
DX: S43.402A Unspecified sprain of left shoulder joint, initial encounter (principal); W30.89XA Contact with other specified agricultural machinery, initial encounter; Y92.014 Private driveway to single-family (private) house as the place of occurrence of the external cause; I10 Essential (primary) hypertension; E78.5 Hyperlipidemia, unspecified; E11.9 Type 2 diabetes mellitus without complications; F41.8 Other specified anxiety disorders; Z79.899 Other long term (current) drug therapy
CPT/HCPCS: 72100; 73020; 73030; 99202; G0463

== ENCOUNTER → 2021-01-17 12:26 | Outpatient (CLI) | payer MEDICARE, MEDICAID, SELFPAY ==
--- NOTE | 2021-01-17 12:37 | MR_ITS ---
PROCEDURE: MR KNEE LT WO CON CLINICAL INDICATION: PAIN IN LEFT KNEE After kneeling down, pt raised arm up and heard a pop x2days ago. Lateral sided knee pain with swelling. No injury or trauma. No prior. COMPARISON: No exams were available for comparison TECHNIQUE: Routine multiplanar multi echo sequences are performed without gadolinium enhancement. FINDINGS: There is hyper buckling of the PCL. The PCL however appears intact. The ACL fibers are sparse and not well-defined suggesting sprain or partial tear. A complete tear is not felt to be present. The collateral ligaments and patellar tendon appear intact. There is a focal small area of discontinuity with slight increase in T2 signal involving the anterior aspect of quadriceps tendon just proximal to the patellar insertion suggesting a partial tear. There is a prominent amount of prepatellar subcutaneous soft tissue edema. No meniscal tear apparent. The patellar cartilage is well preserved. Minimal osteoarthritic changes are present involving the patellofemoral joint as well as the medial and lateral compartment. No significant knee joint effusion. IMPRESSION: Suspect sprain or partial tear of the ACL. There is some hyper buckling of the PCL. Partial tear of the anterior aspect of the quadriceps tendon just proximal to the patellar insertion by 7 mm. Prominent subcutaneous soft tissue swelling in the prepatellar region with mild osteoarthritic change Dictated by: Sandeep Jauregui MD 01/18/2021 11:10 Sandeep Jauregui MD in [place] 01/18/2021 11:10
== END ==
PROVIDERS: PCP Internal Medicine Infectious Disease; Visit Provider Physician Assistant Medical
DX: M25.562 Pain in left knee (principal)
CPT/HCPCS: 73721

== ENCOUNTER 2021-03-03 16:00 | Outpatient (RCR) | payer MEDICARE, MEDICAID, SELFPAY | END 2021-03-03 16:05 | disposition home or self-care (01) | LOC: PT 16:00 | PROVIDERS: PCP Internal Medicine Infectious Disease; Visit Provider Orthopaedic Surgery Adult Reconstructive Orthopaedic Surgery | DX: M25.562 Pain in left knee (principal) | CPT/HCPCS: 97014; 97110; 97163; G0283 ==

== ENCOUNTER 2021-12-04 17:28 | Emergency (ER) | payer MEDICARE, MEDICAID, SELFPAY ==
[2021-12-04 18:05] VITALS: BP 128/75; PULSE 75; RESP 18; TEMP 36.8; O2SAT 98; BMI 29.7
--- NOTE | 2021-12-04 18:56 | HMH.EDUTC ---
[facility] [place] Clinical [place]ression: Epistaxis Disposition: Home, Self-Care Condition on Discharge: Good Instructions: Nosebleed, DI for Nosebleed Additional Instructions: Use the afrin nasal spray as needed every 6 hours for bleeding for the next 2 days only. Follow up with your primary care physician. IF YOU HAVE WORSENING BLEEDING OR ANY CONCERNS, PLEASE RETURN AND GO TO THE ER [facility] Referrals: Sandeep Johnson II, MD [Primary Care Provider] - Time of Disposition: 19:35 Medical Decision Making - Medical Records Medical records reviewed: No: I reviewed the patient's medical records. - Nabil Inquiry Pt receiving controlled substance: No Vital Signs: 12/04/21 18:05 12/04/21 19:13 Temperature 98.3 F 98.3 F Temperature Source Oral Pulse Rate 75 Pulse Rate [Right Brachial] 75 Respiratory Rate 18 18 Blood Pressure 128/75 Blood Pressure [Right Arm] 128/75 Blood Pressure Mean [Right Arm] 92 Blood Pressure Source [Right Arm] Automatic Cuff Blood Pressure Position [Right Arm] Sitting 02 Sat by Pulse Oximetry 98 Oxygen Delivery Method Room Air Orders (Tests/Meds): ED MEDICATIONS Discontinued Medications Generic Name Dose Route Start Last Admin Trade Name Freq PRN Reason Stop Dose Admin Oxymetazoline HCl 1 ml 12/04/21 19:09 12/04/21 19:12 Oxymetazoline Nasal [place] 0.05% 15ml NS 12/04/21 19:10 2 spr ONCE ONE Administration [facility] [place] - General Stated complaint: nose bleed Time Seen by Provider: 12/04/21 18:56 Mode of Arrival: Ambulatory Source of Information: Patient Limitations: No Limitations Description of Symptoms (Recalled from Triage Doc. by RN): PATIENT C/O PERIODIC NOSE BLEEDS FROM LEFT NOSTRIL SINCE 0200 THI AM. REPORTS LONGEST ONE LASTED APPROX 2 HOURS HEENT Symptoms (Recalled from RN notes): Yes Resp Symptoms (Recalled from RN notes): No Skin Symptoms (Recalled from RN notes): No MS Symptoms (Recalled from RN notes): No Functional Status (Recalled from RN notes): WNL - History of Present Illness Provider Complaint: He states that since 0200 this morning, he has had several nose bleeds. He has a history of having nose bleeds, but they are not usually this bad or this frequent. - Related Data Home Medications Medication Instructions Recorded Confirmed Albuterol Sulfate [Ventolin HFA 1 - 2 puffs IH Q4-6H PRN 12/03/18 01/30/19 Inhaler] Aspirin [Aspirin 81mg EC Tab] 81 mg PO DAILY 12/03/18 01/30/19 Buspirone HCl [Buspar 10mg 5 mg PO DAILY 12/03/18 01/30/19 tablet] Cetirizine HCl [Zyrtec] 10 mg PO DAILY 12/03/18 01/30/19 Citalopram Hydrobromide 20 mg PO BID 12/03/18 01/30/19 [Citalopram HBr] Clopidogrel Bisulfate [Plavix 75mg 75 mg PO DAILY 12/03/18 01/30/19 Tab] Empagliflozin/Linagliptin 1 each PO DAILY 12/03/18 01/30/19 [Glyxambi 25 mg-5 mg Tablet] Metformin HCl [Metformin 1000mg 1,000 mg PO BID 12/03/18 01/30/19 Tablets] hydrOXYzine HCL [Hydroxyzine HCl] 25 mg PO DAILY 12/03/18 01/30/19 lisinopriL [Lisinopril 10mg Tab] 10 mg PO DAILY 12/03/18 01/30/19 Previous Rx's Medication Instructions Recorded Ketorolac Tromethamine [Toradol 10 mg PO Q6H PRN 5 Days #15 tab 12/03/18 10mg tablet] Omeprazole Magnesium [Prilosec Otc 20 mg PO DAILY #30 tablet. 12/03/18 20mg Tab] Allergies Allergy/AdvReac Type Severity Reaction Status Date / Time diphenhydramine Allergy Unknown AGITATION Verified 01/30/19 11:12 [From BENADRYL] mirtazapine [From REMERON] Allergy Unknown Verified 01/30/19 11:12 - Worker's Comp Is this a Worker's Comp case?: No [facility] History - Hepatitis A Screen Drug use history?: No High risk sexual behaviors?: No History of sexually transmitted infection?: No Currently employed?: No Childcare worker?: No Do you have indoor plumbing?: Yes Do you have electricity?: Yes Attestation statement:: This patient has been screened for Hepatitis A risk factors. I have r
[2021-12-04 19:13] VITALS: BP 128/75; PULSE 75; RESP 18; TEMP 36.8; O2SAT 98
== END 2021-12-04 19:41 | disposition home or self-care (01) ==
PROVIDERS: Emergency Provider Nurse Practitioner Family; PCP Internal Medicine Infectious Disease
DX: R04.0 Epistaxis (principal); E11.9 Type 2 diabetes mellitus without complications; F41.8 Other specified anxiety disorders; I10 Essential (primary) hypertension; E78.5 Hyperlipidemia, unspecified; I25.10 Atherosclerotic heart disease of native coronary artery without angina pectoris; Z79.899 Other long term (current) drug therapy
CPT/HCPCS: G0463; 99212

== ENCOUNTER 2022-02-12 14:22 | Emergency (ER) | payer MEDICARE, SELFPAY ==
[2022-02-12 14:55] VITALS: BP 121/89; PULSE 77; RESP 19; TEMP 36.7; O2SAT 98; BMI 29.4
--- NOTE | 2022-02-12 15:21 | HMH.EDUTC ---
[facility] [place] Clinical Impression: Left rib fracture Qualifiers: Encounter type: initial encounter Rib fracture type: single rib Fracture type: closed Qualified Code(s): S22.32XA - Fracture of one rib, left side, initial encounter for closed fracture Disposition: Home, Self-Care Condition on Discharge: Good Instructions: DI for Rib Fracture, Rib Fracture, Ibuprofen Additional Instructions: Over the counter lidocaine patches may help with pain in ribs Make sure to be taking deep breaths and cough when needed Follow up with your Family Doctor if no improvement or any worsening of symptoms REturn if needed Straight to ER if any life threatening symptoms You said you have Ibuprofen at home make sure to take it as directed Referrals: Sandeep Johnson II, MD [Primary Care Provider] - As needed Time of Disposition: 16:52 Medical Decision Making - Nabil Inquiry Pt receiving controlled substance: No Nabil was queried for this patient: No Vital Signs: 02/12/22 14:55 Temperature 98.1 F Temperature Source Oral Pulse Rate [Right Brachial] 77 Respiratory Rate 19 Blood Pressure [Right Arm] 121/89 Blood Pressure Mean [Right Arm] 99 Blood Pressure Source [Right Arm] Automatic Cuff Blood Pressure Position [Right Arm] Sitting 02 Sat by Pulse Oximetry 98 Oxygen Delivery Method Room Air - Radiology Data #1 Image(s): Chest (with bilateral ribs) Image Reviewed: Yes I have reviewed radiologist's interpretation IMPRESSION: Question nondisplaced fracture of the anterior left 6th rib. [facility] [place] - General Stated complaint: swollen spot on stomach Time Seen by Provider: 02/12/22 15:21 Mode of Arrival: Ambulatory Source of Information: Patient Limitations: No Limitations Description of Symptoms (Recalled from Triage Doc. by RN): PATIENT C/O PAIN TO BILATERAL RIB AREA X 3 DAYS HEENT Symptoms (Recalled from RN notes): No Resp Symptoms (Recalled from RN notes): No Skin Symptoms (Recalled from RN notes): No MS Symptoms (Recalled from RN notes): Yes Functional Status (Recalled from RN notes): WNL - History of Present Illness Provider Complaint: Patient states that he has been doing alot of yard work and doing alot of pulling and pushing States that he is not sure if he may have pulled something or what but he feels a little swollen on his bottom of his lower ribs Denies known injury - Related Data Home Medications Medication Instructions Recorded Confirmed Albuterol Sulfate [Ventolin HFA 1 - 2 puffs IH Q4-6H PRN 12/03/18 01/30/19 Inhaler] Aspirin [Aspirin 81mg EC Tab] 81 mg PO DAILY 12/03/18 01/30/19 Buspirone HCl [Buspar 10mg 5 mg PO DAILY 12/03/18 01/30/19 tablet] Cetirizine HCl [Zyrtec] 10 mg PO DAILY 12/03/18 01/30/19 Citalopram Hydrobromide 20 mg PO BID 12/03/18 01/30/19 [Citalopram HBr] Clopidogrel Bisulfate [Plavix 75mg 75 mg PO DAILY 12/03/18 01/30/19 Tab] Empagliflozin/Linagliptin 1 each PO DAILY 12/03/18 01/30/19 [Glyxambi 25 mg-5 mg Tablet] Metformin HCl [Metformin 1000mg 1,000 mg PO BID 12/03/18 01/30/19 Tablets] hydrOXYzine HCL [Hydroxyzine HCl] 25 mg PO DAILY 12/03/18 01/30/19 lisinopriL [Lisinopril 10mg Tab] 10 mg PO DAILY 12/03/18 01/30/19 Previous Rx's Medication Instructions Recorded Ketorolac Tromethamine [Toradol 10 mg PO Q6H PRN 5 Days #15 tab 12/03/18 10mg tablet] Omeprazole Magnesium [Prilosec Otc 20 mg PO DAILY #30 tablet. 12/03/18 20mg Tab] Allergies Allergy/AdvReac Type Severity Reaction Status Date / Time diphenhydramine Allergy Unknown AGITATION Verified 01/30/19 11:12 [From BENADRYL] mirtazapine [From REMERON] Allergy Unknown Verified 01/30/19 11:12 - Worker's Comp Is this a Worker's Comp case?: No [facility] History - Hepatitis A Screen Attestation statement:: This patient has been screened for Hepatitis A risk factors. I have reviewed the patient's past medical history: Yes Medical History: Reports:: An
--- NOTE | 2022-02-12 15:28 | XR_ITS ---
FINAL REPORT CLINICAL HISTORY: loki anterior rib pain COMPARISON: 12/03/2018 FINDINGS: RIBS BILATERAL W/CHEST MIN 4 VIEWS The heart is normal in size. The mediastinum is unremarkable. The lungs are clear. There is no pneumothorax. Six images of the bilateral ribs show mild irregularity of the anterior left 6th rib, nondisplaced fracture is not excluded. IMPRESSION: Question nondisplaced fracture of the anterior left 6th rib. Reviewed, Interpreted and Dictated by Daron Colón III, MD Transcribed by Vandana Oro Authenticated and [facility]
[2022-02-12 16:49] VITALS: BP 121/89; PULSE 77; RESP 19; TEMP 36.7; O2SAT 98
== END 2022-02-12 17:02 | disposition home or self-care (01) ==
PROVIDERS: Emergency Provider Nurse Practitioner; PCP Internal Medicine Infectious Disease
DX: S22.32XA Fracture of one rib, left side, initial encounter for closed fracture (principal); X58.XXXA Exposure to other specified factors, initial encounter
CPT/HCPCS: 71111; 99212; G0463

== ENCOUNTER → 2022-02-13 11:57 | Outpatient (CLI) | payer MEDICARE, MEDICAID, SELFPAY ==
--- NOTE | 2022-02-13 12:07 | US_ITS ---
FINAL REPORT CLINICAL HISTORY: ABDOMINAL PAIN FINDINGS: Sonographic images of the abdomen were obtained. The liver is fatty infiltrated. The gallbladder contains sludge. There is no evidence of biliary ductal dilatation. The common hepatic duct measures 2 mm, which is within normal limits. The pancreas is partially obscured. The spleen is borderline enlarged at 13.4 cm. The right kidney measures 12 cm in length. The left kidney measures 11 cm in length. There is normal renal echogenicity. There is no evidence of hydronephrosis. The aorta has an unremarkable appearance. Limited images of the inferior vena cava are unremarkable. IMPRESSION: Fatty infiltration of the liver. Sludge in the gallbladder. Spleen borderline enlarged. Reviewed, Interpreted and Dictated by Daron Colón III, MD Transcribed by Heydi Shukla Authenticated and [facility]
== END ==
PROVIDERS: PCP Physician Assistant Medical; Visit Provider Physician Assistant Medical
DX: R10.11 Right upper quadrant pain (principal); R10.811 Right upper quadrant abdominal tenderness
CPT/HCPCS: 76700

== ENCOUNTER 2022-03-28 03:18 | Emergency (ER) | payer MEDICARE, MEDICAID, SELFPAY ==
[2022-03-28] VITALS (8 sets, daily range): BP systolic 112–143; BP diastolic 77–93; PULSE 67–83; RESP 16–18; TEMP 36.9; O2SAT 94–98; BMI 29.4
--- NOTE | 2022-03-28 03:15 | ECG_ITS ---
APPROVED REPORT Exam: Resting ECG HR:72 bpm ECG Measurements Heart Rate 72 AXES NJ 177 P 27 QRSd 88 QRS -12 QT 359 T -8 QTc 383 Conclusion SINUS RHYTHM MINIMAL VOLTAGE CRITERIA FOR LVH, CONSIDER NORMAL VARIANT [MEETS CRITERIA IN ONE OF: R(aVL), S(V1), R(V5), R(V5/V6)+S(V1)] POSSIBLE ANTERIOR MYOCARDIAL INFARCTION , PROBABLY OLD [30 ms Q WAVE IN V3/V4, OR R < 0.2 mV IN V4] BORDERLINE ECG INTERPRETATION BASED ON A DEFAULT AGE OF 42 YEARS UNCONFIRMED REPORT Electronically signed by : Cayetano Spence MD 03/28/2022 21:01:55
--- NOTE | 2022-03-28 03:18 | XR_ITS ---
PROCEDURE INFORMATION: Exam: XR Chest Exam date and time: 03/28/2022 3:16 AM Age: 52 years old Clinical indication: Sternal or substernal pain; Additional info: Chest pain TECHNIQUE: Imaging protocol: Radiologic exam of the chest. Views: 2 views. COMPARISON: CR XR RIBS BI MIN 4V W CXR1V 02/12/2022 3:27 PM FINDINGS: Lungs: Unremarkable. No consolidation. Pleural spaces: Unremarkable. No pleural effusion. No pneumothorax. Heart/Mediastinum: Unremarkable. No cardiomegaly. Bones/joints: Unremarkable. IMPRESSION: No acute findings.
--- NOTE | 2022-03-28 03:20 | HMH.EDGENADL ---
ED Disposition Clinical Impression: Chest wall pain Cough Qualifiers: Cough type: acute Qualified Code(s): R05.1 - Acute cough Disposition: Home, Self-Care Condition on Discharge: Good Instructions: DI for Atypical Chest Pain, DI for Chest Pain Additional Instructions: You have been evaluated for chest pain, diagnosed with chest wall pain. Please take anti-inflammatory medication like ibuprofen every 8 hours. Take [id number] cough suppressant as needed. Follow-up with your primary care doctor in 1 to 2 days for symptom recheck. Return to the emergency department at once for any new or worsening symptoms, pain, difficulty breathing, other concerns. Prescriptions: Ibuprofen [Ibuprofen 600mg Tablet] 600 mg PO Q6HP PRN #20 tab PRN Reason: Mild Pain Transmission Status: Pending to [facility] Referrals: Osiris Chu PA [Primary Care Provider] - Time of Disposition: 07:48 - Critical Care Critical Care Time: No Attestation: On , the high probability of a clinically significant, sudden or life threatening deterioration of the following system(s) required my full and direct attention, intervention and personal management. The time I documented below is in addition to time spent performing reported procedures but includes the following listed in this critical care notation. Medical Decision Making - Medical Records Medical records reviewed: Yes: I reviewed the patient's medical records. - Nabil Inquiry Pt receiving controlled substance: No Vital Signs: 03/28/22 03:18 03/28/22 05:00 03/28/22 05:36 Temperature 98.4 F Temperature Source Oral Pulse Rate 83 78 73 Pulse Rate [Right] 74 Respiratory Rate 18 18 16 Blood Pressure 133/88 115/84 124/86 Blood Pressure [Right Arm] 143/92 H Blood Pressure Mean 98 Blood Pressure Mean [Right Arm] 109 02 Sat by Pulse Oximetry 94 L 94 L 95 03/28/22 05:42 03/28/22 06:12 03/28/22 06:42 Temperature Temperature Source Pulse Rate 71 72 Pulse Rate [Right] Respiratory Rate 16 16 Blood Pressure 121/93 H 127/83 112/78 Blood Pressure [Right Arm] Blood Pressure Mean 100 97 87 Blood Pressure Mean [Right Arm] 02 Sat by Pulse Oximetry 94 L 96 03/28/22 07:27 Temperature Temperature Source Pulse Rate 73 Pulse Rate [Right] Respiratory Rate 16 Blood Pressure 112/77 Blood Pressure [Right Arm] Blood Pressure Mean 86 Blood Pressure Mean [Right Arm] 02 Sat by Pulse Oximetry 96 - Lab Data Lab Results 03/28/22 03:19: WBC 7.3, RBC 4.76, Hgb 16.3, Hct 44.4, MCV 93.2, MCH 34.3 H, MCHC 36.8 H, RDW 13.3, Plt Count 208, MPV 8.4, Neut % (Auto) 45.3, Lymph % (Auto) 44.9, [place] % (Auto) 7.3, Eos % (Auto) 1.4, Baso % (Auto) 1.0, Neut # (Auto) 3.3, Lymph # (Auto) 3.3, [place] # (Auto) 0.5, Eos # (Auto) 0.1, Baso # (Auto) 0.1 03/28/22 03:19: D-Dimer 0.56 H 03/28/22 03:19: Sodium 138, Potassium 3.9, Chloride 104, Carbon Dioxide 28, Anion Gap 9.9, BUN 15, Creatinine 0.90, Estimated Creat Clear 129, Estimated GFR 89, Est GFR ( Amer) 108, Glucose 125 H, Calcium 8.8, Troponin I < 0.01 03/28/22 06:01: Troponin I < 0.01 Result diagrams: 03/28/22 03:19 03/28/22 03:19 Orders (Tests/Meds): ED MEDICATIONS Discontinued Medications Generic Name Dose Route Start Last Admin Trade Name Eula PRN Reason Stop Dose Admin Aspirin 324 mg 03/28/22 03:18 03/28/22 03:22 Aspirin 81mg Chewable Tablet PO 03/28/22 03:19 324 mg ONCE ONE Administration Iopamidol 70 ml 03/28/22 05:12 03/28/22 05:13 Iopamidol-370 (76%);100ml Bottle IV 03/28/22 05:13 70 ml ONCE ONE Administration Ketorolac Tromethamine 15 mg 03/28/22 04:50 03/28/22 04:52 Ketorolac 30mg/Ml Vial IV 03/28/22 04:51 15 mg ONCE ONE Administration Sodium Chloride 50 ml 03/28/22 05:12 03/28/22 05:13 0.9 % Sodium Chloride 50 Ml Vial IV 03/28/22 05:13 50 ml ONCE ONE Administration Sodium Chloride 10 ml 03/28/22 05:12 03/28/22 05:13
[2022-03-28 03:26] LABS: Basophils # 0.1 K/mm3 (0-0.2); Eosinophils # 0.1 K/mm3 (0.0-0.4); Eosinophils % 1.4 % (0.1-12.0); Hematocrit 44.4 % (42.0-52.0); Hemoglobin 16.3 g/dL (14.1-18.0); Lymphocytes # 3.3 K/mm3 (0.7-4.5); Lymphocytes % 44.9 % (10-50); Mean Corpuscular HGB Conc 36.8 g/dL (31.8-35.4); Mean Corpuscular Hemoglobin 34.3 pg (27.0-31.2); Mean Corpuscular Volume 93.2 fl (80-94); Mean Platelet Volume 8.4 fl (7.4-10.4); Monocytes # 0.5 K/mm3 (0.1-1.0); Monocytes % 7.3 % (1.7-9.3); Neutrophils # 3.3 K/mm3 (1.8-7.8); Neutrophils % 45.3 % (37.0-80.0); Platelet Count 208 K/mm3 (142-424); Red Blood Count 4.76 M/mm3 (4.60-6.20); Red Cell Distribution Width 13.3 % (11.5-17.5); White Blood Count 7.3 K/mm3 (4.8-10.8)
--- NOTE | 2022-03-28 03:27 | PC.NURSE ---
pt kelley from xray
[2022-03-28 03:34] LABS: Anion Gap 9.9 mEq/L (5-15); Blood Urea Nitrogen 15 mg/dl (9-20); Calcium 8.8 mg/dl (8.4-10.2); Carbon Dioxide 28 mmol/L (22.0-30.0); Chloride 104 mmol/L (98-107); Creatinine Clearance Estimated 129 mL/min (50-200); Estimated Glomerular Filt Rate 89 ml/min (>60); GFR (African American) 108 ML/MIN (>60); Glucose 125 mg/dl (74-100); Potassium 3.9 mmoL/L (3.5-5.1); Sodium 138 mmol/L (136-145)
[2022-03-28 03:39] LABS: D-Dimer 0.56 ug/mL (0.0-0.5)
[2022-03-28 03:50] LABS: Troponin I < 0.01 ng/ml (0.00-0.034)
--- NOTE | 2022-03-28 04:18 | PC.NURSE ---
patient states that he is feeling some better, it comes and goes patient requesting toradol for pain, ED doctor informed of conversation with patient
--- NOTE | 2022-03-28 04:50 | CT_ITS ---
PROCEDURE INFORMATION: Exam: CTA Chest With Contrast Exam date and time: 03/28/2022 5:00 AM Age: 52 years old Clinical indication: Abnormal findings; Abnormal diagnostic tests; Elevated d-dimer TECHNIQUE: Imaging protocol: Computed tomographic angiography of the chest with contrast. 3D rendering (Not supervised by radiologist): MIP and/or 3D reconstructed images were created by the technologist. Radiation optimization: All CT scans at this facility use at least one of these dose optimization techniques: automated exposure control; mA and/or kV adjustment per patient size (includes targeted exams where dose is matched to clinical indication); or iterative reconstruction. Contrast material: ISOVUE; Contrast volume: 70 ml; Contrast route: INTRAVENOUS (IV); COMPARISON: [facility] CT angio chest 12/03/2018 2:29 AM FINDINGS: Pulmonary arteries: Normal. No pulmonary emboli. Aorta: Few atheromatous aortic calcifications. Lungs: Unremarkable. No consolidation. No masses. Pleural spaces: Unremarkable. No pneumothorax. No pleural effusion. Heart: Unremarkable. No cardiomegaly. No pericardial effusion. Lymph nodes: Unremarkable. No enlarged lymph nodes. Liver: Possible hepatomegaly with mild fatty infiltration. Gallbladder and bile ducts: Contracted gallbladder. Bones/joints: Subtle spondylosis with convex right scoliosis. Soft tissues: Unremarkable. IMPRESSION: 1. No evidence of pulmonary embolus or aortic dissection. 2. Possible hepatomegaly with fatty infiltration. 3. Other nonacute findings above.
--- NOTE | 2022-03-28 04:55 | PC.NURSE ---
pt medicated per OCT @ this time
--- NOTE | 2022-03-28 05:01 | PC.NURSE ---
pt gone to ct scan
--- NOTE | 2022-03-28 05:13 | PC.NURSE ---
pt return from ct
--- NOTE | 2022-03-28 05:13 | PC.NURSE ---
pt ambulated to BR @ this time
--- NOTE | 2022-03-28 06:06 | PC.NURSE ---
2nd trop drawn @ this time
--- NOTE | 2022-03-28 06:33 | PC.NURSE ---
rounded on pt updated on POC awaiting on trop and ct scan results
[2022-03-28 06:36] LABS: Troponin I < 0.01 ng/ml (0.00-0.034)
--- NOTE | 2022-03-28 07:16 | PC.NURSE ---
pt ambulated to and from restroom
--- NOTE | 2022-03-28 07:28 | PC.NURSE ---
pt and family denies any needs at this time, states they seen the ct on the portal, instructed that I will let the MD know CT is showing on their portal. PT resting with no complaints
--- NOTE | 2022-03-28 07:45 | PC.NURSE ---
ER in room speaking to pt
--- NOTE | 2022-03-28 07:57 | PC.NURSE ---
RN to DC pt at this time
== END 2022-03-28 08:07 | disposition home or self-care (01) ==
PROVIDERS: Emergency Provider Emergency Medicine; PCP Physician Assistant Medical
DX: R07.89 Other chest pain (principal); R05.1 Acute cough; I25.10 Atherosclerotic heart disease of native coronary artery without angina pectoris; I10 Essential (primary) hypertension
CPT/HCPCS: 71046; 71275; 80048; 84484; 85025; 85378; 93005; 96374; 99285; Q9967

== ENCOUNTER 2022-05-27 15:14 | Emergency (ER) | payer MEDICARE, MEDICAID, SELFPAY ==
--- NOTE | 2022-05-27 15:34 | PC.NURSE ---
WHILE IN [facility] WAITING ROOM, PATIENT STATES HE WAS FEELING SHAKY, DIAPHORETIC, AND C/O SUDDEN ONSET OF CHEST PAIN/TIGHTNESS. Jackson HOUSTON APRN NOTIFIED Barbara LUNSFORD RN AND PATIENT SENT TO ER.
--- NOTE | 2022-05-27 15:44 | ECG_ITS ---
APPROVED REPORT Exam: Resting ECG HR:79 bpm ECG Measurements Heart Rate 79 AXES SC 181 P 29 QRSd 77 QRS -12 QT 344 T 3 QTc 379 Conclusion SINUS RHYTHM Left atrial abnormality LVH Old anteroseptal changes ABNORMAL ECG UNCONFIRMED REPORT Electronically signed by : Cayetano Spence MD 05/27/2022 16:39:56
--- NOTE | 2022-05-27 15:44 | XR_ITS ---
PROCEDURE INFORMATION: Exam: XR Chest Exam date and time: 05/27/2022 4:03 PM Age: 52 years old Clinical indication: Chest wall pain; Additional info: Cp TECHNIQUE: Imaging protocol: Radiologic exam of the chest. Views: 1 view. COMPARISON: CR XR CHEST 2V 03/28/2022 3:16 AM FINDINGS: Lungs: Opacities in the left base may represent atelectasis or pneumonia.. Pleural spaces: Unremarkable. No pleural effusion. No pneumothorax. Heart/Mediastinum: Unremarkable. No cardiomegaly. Bones/joints: Unremarkable. IMPRESSION: Opacities in the left base may represent atelectasis or pneumonia..
--- NOTE | 2022-05-27 15:45 | HMH.EDGENADL ---
Discharge Plan Disposition Patient Disposition: Home, Self-Care Condition: Good Prescriptions Prescriptions: New sulfamethoxazole-trimethoprim [Bactrim DS] 800-160 mg tablet 1 tab PO Q12H 7 Days Qty: 14 0RF No Action clopidogrel 75 MG tablet 75 mg PO DAILY citalopram 20 MG tablet 20 mg PO BID metformin 1,000 MG tablet 1,000 mg PO BID buspirone 10 MG tablet 5 mg PO DAILY Rx Instructions: PATIENT TAKES 1/2 TABLET BID lisinopril 10 MG tablet 10 mg PO DAILY albuterol sulfate [Ventolin HFA] 18 GM HFA aerosol inhaler 1 - 2 puffs inhalation Q4-6H PRN (Reason: Shortness Of Breath Or Wheezing) empagliflozin-linagliptin [Glyxambi] 1 EACH tablet 1 ea PO DAILY cetirizine [Zyrtec] 10 MG tablet 10 mg PO DAILY aspirin 81 MG tablet,delayed release (DR/EC) 81 mg PO DAILY hydroxyzine HCl 25 MG tablet 25 mg PO DAILY ketorolac 10 MG tablet 10 mg PO Q6H PRN (Reason: Moderate To Severe Pain) 5 Days Qty: 15 0RF omeprazole magnesium 20 MG tablet,delayed release (DR/EC) 20 mg PO DAILY Qty: 30 3RF ibuprofen 600 MG tablet 600 mg PO Q6HP PRN (Reason: Mild Pain) Qty: 20 0RF Referrals Follow up/Referrals: Osiris Chu PA [Primary Care Provider] - See instructions Activity Restrictions/Add. Instructions Additional Instructions/Restrictions: You have been evaluated for left leg wound, diagnosed with an abscess. Please take antibiotics as prescribed. Tylenol and ibuprofen for pain. Follow-up with your primary care doctor in 1 to 2 days for symptom recheck. Return to the emergency department at once for any new or worsening symptoms, redness, fevers, pain, other concerns Clinical Impressions Clinical Impression: Abscess of leg, right, Chest pain Instructions Patient Instructions: DI for Chest Pain, DI for Skin Abscess Discharge ED Provider: Dee Gomes General Adult HPI General Chief complaint: PAIN Stated complaint: possibly infected wound RT leg, chest pain Time Seen by Provider: 05/27/22 15:45 History of Present Illness HPI narrative: 52-year-old male presenting to the emergency department with a wound to his right lower leg and chest pain. Leg wound started a few days ago. Initially was a red, raised bump. Over the last 2 days it has become a wound that is scabbed. Tender to touch. Surrounding erythema. No signs of systemic illness like fevers, chills, nausea, vomiting. No other rashes on his skin. He was on his way to urgent care when he developed chest pain. Is described as a tightness, burning, located just below the ribs on both sides. No radiation of the jaw, arm, back. Occasionally feels like is difficult to breathe. He has a history of asthma and uses inhaler this morning upon waking up. No cough. No current shortness of breath. No abdominal pain, nausea, vomiting. Related Data Home Medications Medication Instructions Recorded Confirmed albuterol sulfate 90 mcg/actuation 1 - 2 puffs inhalation Q4-6H PRN 12/03/18 01/30/19 aerosol inhaler (Ventolin HFA) Shortness Of Breath Or Wheezing aspirin 81 mg tablet,delayed 81 mg PO DAILY HEART HEALTH 12/03/18 01/30/19 release buspirone 10 mg tablet 5 mg PO DAILY Depression 12/03/18 01/30/19 cetirizine 10 mg tablet (Zyrtec) 10 mg PO DAILY Allergy symptoms 12/03/18 01/30/19 citalopram 20 mg tablet 20 mg PO BID Depression 12/03/18 01/30/19 clopidogrel 75 mg tablet 75 mg PO DAILY Blood thinner 12/03/18 01/30/19 empagliflozin 25 mg-linagliptin 5 1 ea PO DAILY DM 12/03/18 01/30/19 mg tablet (Glyxambi) hydroxyzine HCl 25 mg tablet 25 mg PO DAILY Anxiety 12/03/18 01/30/19 lisinopril 10 mg tablet 10 mg PO DAILY HTN 12/03/18 01/30/19 metformin 1,000 mg tablet 1,000 mg PO BID DM 12/03/18 01/30/19 Previous Rx's Medication Instructions Recorded ketorolac 10 mg tablet 10 mg PO Q6H PRN Moderate To 12/03/18 Severe Pain 5 days #15 tabs omeprazole magnesium 20 mg 20 mg PO
[2022-05-27 15:49] VITALS: BP 141/98; PULSE 83; RESP 18; TEMP 36.7; O2SAT 97; BMI 29.4
[2022-05-27 15:52] LABS: Basophils % 0.5 % (0.1-2.0); Eosinophils # 0.1 K/mm3 (0.0-0.4); Hematocrit 49.4 % (42.0-52.0); Hemoglobin 16.4 g/dL (14.1-18.0); Lymphocytes # 1.6 K/mm3 (0.7-4.5); Lymphocytes % 33.1 % (10-50); Mean Corpuscular HGB Conc 33.1 g/dL (31.8-35.4); Mean Corpuscular Hemoglobin 30.4 pg (27.0-31.2); Mean Corpuscular Volume 91.6 fl (80-94); Mean Platelet Volume 8.6 fl (7.4-10.4); Monocytes # 0.3 K/mm3 (0.1-1.0); Monocytes % 6.3 % (1.7-9.3); Neutrophils # 2.8 K/mm3 (1.8-7.8); Neutrophils % 58.2 % (37.0-80.0); Platelet Count 214 K/mm3 (142-424); Red Blood Count 5.39 M/mm3 (4.60-6.20); Red Cell Distribution Width 13.3 % (11.5-17.5); White Blood Count 4.9 K/mm3 (4.8-10.8)
[2022-05-27 16:02] LABS: Chloride 106 mmol/L (98-107); Sodium 142 mmol/L (136-145)
[2022-05-27 16:04] LABS: Alanine Aminotransferase 35 U/L (12-78); Alkaline Phosphatase 114 U/L (38-126); Aspartate Amino Transferase 40 U/L (17-59); Bilirubin,Total 0.7 mg/dl (0.2-1.3); Blood Urea Nitrogen 11 mg/dl (9-20); Carbon Dioxide 24 mmol/L (22.0-30.0); Creatinine Clearance Estimated 166 mL/min (50-200); Estimated Glomerular Filt Rate 119 ml/min (>60); GFR (African American) 144 ML/MIN (>60); Lipase 142 U/L (23-300)
[2022-05-27 16:05] LABS: Albumin Level 4.2 g/dl (3.5-5.0); Albumin/Globulin Ratio 1.7 (1.1-1.8); Calcium 8.6 mg/dl (8.4-10.2); Globulin 2.5 g/dL (1.3-3.2); Glucose 200 mg/dl (74-100); Total Protein,Serum 6.7 g/dl (6.3-8.2)
--- NOTE | 2022-05-27 16:12 | PC.NURSE ---
urinal provided to pt
[2022-05-27 16:16] LABS: Troponin I < 0.01 ng/ml (0.00-0.034)
--- NOTE | 2022-05-27 16:32 | PC.NURSE ---
pt refusing vital signs at this time
--- NOTE | 2022-05-27 17:52 | PC.NURSE ---
LAB NOTIFIED THAT REPEAT TROP IS READY TO BE DRAWN PER DR MACIEL
[2022-05-27 18:02] VITALS: BP 123/82; PULSE 66; RESP 22; O2SAT 96
--- NOTE | 2022-05-27 18:09 | PC.NURSE ---
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
[2022-05-27 18:30] VITALS: BP 125/85; PULSE 69; RESP 17; O2SAT 96
[2022-05-27 18:51] LABS: Troponin I < 0.01 ng/ml (0.00-0.034)
[2022-05-27 18:59] VITALS: BP 127/79; PULSE 64; RESP 18; TEMP 36.7; O2SAT 97
[2022-05-27 19:00] VITALS: BP 129/79; PULSE 70; RESP 22; O2SAT 95
== END 2022-05-27 19:06 | disposition home or self-care (01) ==
LOC: UTC 15:19 → ER 15:37
PROVIDERS: Emergency Medicine; Emergency Provider Nurse Practitioner; PCP Physician Assistant Medical
DX: L02.415 Cutaneous abscess of right lower limb (principal); L02.213 Cutaneous abscess of chest wall
CPT/HCPCS: 36415; 71045; 80053; 83690; 84484; 85025; 93005; 99284

== ENCOUNTER 2022-10-02 13:13 | Emergency (ER) | payer MEDICARE, SELFPAY ==
--- NOTE | 2022-10-02 14:46 | EXP.UTC ---
Discharge Plan Disposition Patient Disposition: Home, Self-Care Condition: Good Prescriptions Prescriptions: New benzonatate [benzonatate] 100 mg capsule 100 mg PO TIDP PRN (Reason: Cough) Qty: 30 0RF methylprednisolone 4 mg Tablets,Dose Pack 4 mg PO DIRECTED Qty: 21 0RF amoxicillin-pot clavulanate 875-125 mg Tablet 1 tab PO Q12H Qty: 20 0RF No Action clopidogrel 75 MG tablet 75 mg PO DAILY citalopram 20 MG tablet 20 mg PO BID metformin 1,000 MG tablet 1,000 mg PO BID buspirone 10 MG tablet 5 mg PO DAILY Rx Instructions: PATIENT TAKES 1/2 TABLET BID lisinopril 10 MG tablet 10 mg PO DAILY albuterol sulfate [Ventolin HFA] 18 GM HFA aerosol inhaler 1 - 2 puffs inhalation Q4-6H PRN (Reason: Shortness Of Breath Or Wheezing) empagliflozin-linagliptin [Glyxambi] 1 EACH tablet 1 ea PO DAILY cetirizine [Zyrtec] 10 MG tablet 10 mg PO DAILY aspirin 81 MG tablet,delayed release (DR/EC) 81 mg PO DAILY hydroxyzine HCl 25 MG tablet 25 mg PO DAILY ketorolac 10 MG tablet 10 mg PO Q6H PRN (Reason: Moderate To Severe Pain) 5 Days Qty: 15 0RF omeprazole magnesium 20 MG tablet,delayed release (DR/EC) 20 mg PO DAILY Qty: 30 3RF ibuprofen 600 MG tablet 600 mg PO Q6HP PRN (Reason: Mild Pain) Qty: 20 0RF sulfamethoxazole-trimethoprim [Bactrim DS] 800-160 mg tablet 1 tab PO Q12H 7 Days Qty: 14 0RF Referrals Follow up/Referrals: Provider,Referral, MD [Primary Care Provider] - See instructions Activity Restrictions/Add. Instructions Additional Instructions/Restrictions: Drink plenty of fluids. Take tylenol or ibuprofen for pain or fever. Take the medications as directed. Follow up with your regular doctor. GO TO THE ER FOR ANY WORSENING SYMPTOMS Clinical Impressions Clinical Impression: Bronchitis, Acute viral syndrome Instructions Patient Instructions: DI for Acute Bronchitis, DI for Viral Syndrome Discharge ED Provider: Abisai Palmer [facility] General Stated complaint: Cough fever Congestion drainage sore throat Time Seen by Provider: 10/02/22 14:46 History of Present Illness Provider Complaint: He states that for the past 2 days he has had low grade fever, chills, body aches, sinus congestion and chest congestion. Related Data Home Medications Medication Instructions Recorded Confirmed albuterol sulfate 90 mcg/actuation 1 - 2 puffs inhalation Q4-6H PRN 12/03/18 01/30/19 aerosol inhaler (Ventolin HFA) Shortness Of Breath Or Wheezing aspirin 81 mg tablet,delayed 81 mg PO DAILY HEART HEALTH 12/03/18 01/30/19 release buspirone 10 mg tablet 5 mg PO DAILY Depression 12/03/18 01/30/19 cetirizine 10 mg tablet (Zyrtec) 10 mg PO DAILY Allergy symptoms 12/03/18 01/30/19 citalopram 20 mg tablet 20 mg PO BID Depression 12/03/18 01/30/19 clopidogrel 75 mg tablet 75 mg PO DAILY Blood thinner 12/03/18 01/30/19 empagliflozin 25 mg-linagliptin 5 1 ea PO DAILY DM 12/03/18 01/30/19 mg tablet (Glyxambi) hydroxyzine HCl 25 mg tablet 25 mg PO DAILY Anxiety 12/03/18 01/30/19 lisinopril 10 mg tablet 10 mg PO DAILY HTN 12/03/18 01/30/19 metformin 1,000 mg tablet 1,000 mg PO BID DM 12/03/18 01/30/19 Previous Rx's Medication Instructions Recorded ketorolac 10 mg tablet 10 mg PO Q6H PRN Moderate To 12/03/18 Severe Pain 5 days #15 tabs omeprazole magnesium 20 mg 20 mg PO DAILY GERD ##30 12/03/18 tablet,delayed release ibuprofen 600 mg tablet 600 mg PO Q6HP PRN Mild Pain #20 03/28/22 tabs sulfamethoxazole 800 1 tab PO Q12H 7 days #14 tabs 05/27/22 mg-trimethoprim 160 mg tablet (Bactrim DS) amoxicillin 875 mg-potassium 1 tab PO Q12H #20 tabs 10/02/22 clavulanate 125 mg tablet benzonatate 100 mg capsule 100 mg PO TIDP PRN Cough #30 caps 10/02/22 methylprednisolone 4 mg tablets in 4 mg PO DIRECTED #21 tabs 10/02/22 a dose pack Allergies Allergy/AdvReac Type Severity Reaction Status Date
[2022-10-02 14:50] VITALS: BP 119/68; PULSE 72; RESP 20; TEMP 37; O2SAT 95; BMI 29.4
[2022-10-02 15:08] LABS: UTC Strep Screen (Rapid) Negative (Negative)
[2022-10-02 15:09] LABS: UTC Influenza A Antigen Negative (Negative); UTC Influenza B Antigen Negative (Negative)
[2022-10-02 16:00] VITALS: BP 119/68; PULSE 72; RESP 20; TEMP 37; O2SAT 95
== END 2022-10-02 16:00 | disposition home or self-care (01) ==
PROVIDERS: Emergency Provider Nurse Practitioner Family
DX: J40 Bronchitis, not specified as acute or chronic (principal); B34.9 Viral infection, unspecified
CPT/HCPCS: 87804; 87880; 99212; 99214; G0463

== ENCOUNTER 2023-01-29 17:00 | Emergency (ER) | payer MEDICARE, MEDICAID, SELFPAY ==
[2023-01-29 17:15] VITALS: BP 127/73; PULSE 71; RESP 18; TEMP 36.6; O2SAT 99; BMI 29.4
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
[2023-01-29 18:24] VITALS: BP 127/73; PULSE 71; RESP 18; TEMP 36.6; O2SAT 99
== END 2023-01-29 18:26 | disposition home or self-care (01) ==
PROVIDERS: Emergency Provider Nurse Practitioner
DX: S60.222A Contusion of left hand, initial encounter (principal); W27.0XXA Contact with workbench tool, initial encounter
CPT/HCPCS: 73130; 99212; 99214; G0463

== ENCOUNTER 2023-06-26 16:00 | Outpatient (RCR) | payer MEDICARE, MEDICAID, SELFPAY | END 2023-06-26 17:00 | disposition home or self-care (01) | LOC: PT 16:00 | PROVIDERS: Visit Provider Physician Assistant | DX: M54.50 Low back pain, unspecified (principal); S46.391A Other injury of muscle, fascia and tendon of triceps, right arm, initial encounter | CPT/HCPCS: 97010; 97014; 97035; 97110; 97163; 97164; 97530; G0283 ==

== ENCOUNTER → 2023-07-30 08:57 | Outpatient (CLI) | payer MEDICARE, MEDICAID, SELFPAY ==
--- NOTE | 2023-07-30 09:02 | MR_ITS ---
FINAL REPORT CLINICAL HISTORY: RIGHT TRICEPS TENDONITIS FINDINGS: Multiplanar MR imaging of the right elbow was performed without contrast. Motion on many of the images decreases exam sensitivity. The bony structures are intact without evidence of fracture, bone bruise or marrow edema. There is no evidence of osteochondral lesion. The ligaments appear intact. There is a small intrasubstance tear at the proximal common extensor tendon. The common flexor tendon is intact. The biceps tendon is intact. There is distal triceps tendinitis without tear. The brachialis tendon is intact. The musculature has an unremarkable appearance. No soft tissue mass or cyst is identified. There is a small joint effusion. No focal abnormality is identified of the ulnar nerve. IMPRESSION: Small intrasubstance tear of the proximal common extensor tendon. Mild distal triceps tendinitis without tear. Reviewed, Interpreted and Dictated by Daron Colón III, MD Transcribed by Sergo Mejia Authenticated and [facility]
== END ==
PROVIDERS: PCP Nurse Practitioner; Visit Provider Physician Assistant
DX: M25.521 Pain in right elbow (principal)
CPT/HCPCS: 73221

== ENCOUNTER 2023-10-04 14:32 | Outpatient (CLI) | payer MEDICARE, MEDICAID, SELFPAY ==
--- NOTE | 2023-10-04 14:36 | MR_ITS ---
FINAL REPORT CLINICAL HISTORY: LBP with left leg pain FINDINGS: Multiplanar MR imaging of the lumbar spine was performed without contrast. On the sagittal T2-weighted images, disc degeneration is seen at several levels. There is mild anterolisthesis of L5 on S1. Several Schmorl's nodes are seen. There is mild leftward curvature. There is no evidence of fracture. The conus has an unremarkable appearance. T12-L1: There is no significant canal stenosis or neural foraminal narrowing. L1-2: There is no significant canal stenosis or neural foraminal narrowing. L2-3: An annular bulge and facet arthropathy are present. There is a left paracentral annular tear with mild right neural foraminal narrowing. L3-4: An annular bulge and facet arthropathy are present. There is mild right neural foraminal narrowing. L4-5: An annular bulge and facet arthropathy are present. There is a small central disc protrusion with moderate right and mild left neural foraminal narrowing. L5-S1: An annular bulge and facet arthropathy are present. There is a left posterolateral disc protrusion resulting in left lateral recess stenosis and severe left neural foraminal narrowing. There is left L5 nerve root impingement. IMPRESSION: Left posterolateral disc protrusion at L5-S1 results in severe left neural foraminal narrowing, left lateral recess stenosis and left L5 nerve root impingement. Multilevel degenerative disc disease and spondylosis. Small central disc protrusion at L4-5 with mild left neural foraminal narrowing. Reviewed, Interpreted and Dictated by Daron Colón III, MD Transcribed by Vandana Oro Authenticated and [facility]
== END 2023-10-04 23:59 ==
LOC: RAD 14:33
PROVIDERS: PCP Nurse Practitioner; Visit Provider Orthopaedic Surgery Adult Reconstructive Orthopaedic Surgery
DX: M54.50 Low back pain, unspecified (principal)
CPT/HCPCS: 72148; 76376

== ENCOUNTER 2023-12-16 14:56 | Outpatient (CLI) | payer MEDICARE, MEDICAID, SELFPAY ==
--- NOTE | 2023-12-16 14:59 | XR_ITS ---
FINAL REPORT CLINICAL HISTORY: lower back pain, lumbar disc protrusion L5-S1 FINDINGS: LUMBAR SPINE 3 views were obtained. There is no acute fracture. There is no malalignment. The disc spaces are preserved. There is moderate facet sclerosis in the lower lumbar spine. There is no soft tissue abnormality. IMPRESSION: No acute bony abnormality. Reviewed, Interpreted and Dictated by Mariusz Loomis MD Transcribed by Gayle Olmstead Authenticated and [facility]
== END 2023-12-16 23:59 | disposition home or self-care (01) ==
LOC: LAB.DROPOF 14:57
PROVIDERS: PCP Nurse Practitioner Family; Visit Provider Nurse Practitioner Family
DX: M51.26 Other intervertebral disc displacement, lumbar region (principal)
CPT/HCPCS: 72100

== ENCOUNTER 2023-12-17 18:41 | Outpatient (CLI) | payer MEDICARE, MEDICAID, SELFPAY ==
--- OUTSIDE RECORDS SUMMARY | 2023-12-17 18:44 | XMS_ITS ---
Author Name Luis Cavanaugh Address [address] [place] [address] Organization Unknown Address [address] [place] [id number] ALLERGIES AND ADVERSE REACTIONS No information ASSESSMENT No information CHIEF COMPLAINT No information MEDICATIONS No information OBJECTIVE DATA No information PHYSICAL EXAMINATION No information TREATMENT PLAN Planned Care Start Date Provider Encounter for Check-up [phone] [facility] PROBLEMS No information RESULTS No information REVIEW OF SYSTEMS No information SUBJECTIVE DATA No information VITAL SIGNS No information
[2023-12-17 20:23] LABS: Alanine Aminotransferase 34 U/L (12-78); Albumin Level 4.5 g/dl (3.5-5.0); Alkaline Phosphatase 107 U/L (38-126); Anion Gap 12.7 mEq/L (5-15); Aspartate Amino Transferase 29 U/L (17-59); Blood Urea Nitrogen 16 mg/dl (9-20); Calcium 9.7 mg/dl (8.4-10.2); Carbon Dioxide 28 mmol/L (22.0-30.0); Chloride 105 mmol/L (98-107); Estimated Glomerular Filt Rate 142 ml/min (>60); GFR (African American) 172 ML/MIN (>60); Globulin 2.2 g/dL (1.3-3.2); Glucose 134 mg/dl (74-100); Potassium 4.7 mmoL/L (3.5-5.1); Sodium 141 mmol/L (136-145); Total Protein,Serum 6.7 g/dl (6.3-8.2)
[2023-12-17 20:46] LABS: Erythrocyte Sedimentation Rate 3 mm/hr (0-20)
[2023-12-19 10:42] LABS: RA Latex Turbid. <10.0 IU/mL (<14.0)
[2023-12-19 16:28] LABS: Antinuclear Antibodies, IFA Negative (.)
== END 2023-12-17 23:59 | disposition home or self-care (01) ==
LOC: LAB.DROPOF 18:42
PROVIDERS: PCP Nurse Practitioner Family; Visit Provider Nurse Practitioner Family
DX: I10 Essential (primary) hypertension (principal); M25.50 Pain in unspecified joint
CPT/HCPCS: 80053; 84550; 85651; 86038; 86431

== ENCOUNTER 2024-01-15 13:49 | Emergency (ER) | payer MEDICARE, MEDICAID, SELFPAY ==
[2024-01-15] VITALS (9 sets, daily range): BP systolic 101–140; BP diastolic 70–93; PULSE 62–72; RESP 13–17; TEMP 36.4–36.7; O2SAT 94–98; BMI 29.4
--- NOTE | 2024-01-15 13:48 | ECG_ITS ---
APPROVED REPORT Exam: Resting ECG HR:68 bpm ECG Measurements Heart Rate 68 AXES AR 169 P 32 QRSd 87 QRS 14 QT 365 T 6 QTc 382 Conclusion SINUS RHYTHM INFERIOR MYOCARDIAL INFARCTION , PROBABLY OLD [40+ ms Q WAVE AND/OR ST/T ABNORMALITY IN II/aVF] ABNORMAL ECG No acute STEMI Electronically signed by : JOSEPH FISHMAN, 01/15/2024 19:28:06
--- NOTE | 2024-01-15 13:56 | XR_ITS ---
FINAL REPORT CLINICAL HISTORY: Precordial Chest pain COMPARISON: 05/27/2022 FINDINGS: The heart size is normal. The mediastinum is normal. The lungs are underinflated. There is no focal infiltrate or edema. There are no pleural effusions. There is no pneumothorax. There is no osseous abnormality. IMPRESSION: No acute cardiopulmonary process Reviewed, Interpreted and Dictated by Mariusz Loomis MD Transcribed by Heydi Shukla Authenticated and [facility]
--- NOTE | 2024-01-15 13:57 | PC.NURSE ---
Dr. Willis at [facility] for pt eval
--- NOTE | 2024-01-15 14:01 | ED_ITS ---
Discharge Plan Disposition Patient Disposition: Home, Self-Care Condition: Good Prescriptions Prescriptions: No Action metoprolol succinate 25 mg tablet extended release 24 hr 25 mg PO DAILY atorvastatin 20 mg tablet 20 mg PO DAILY methocarbamol 500 mg tablet 500 mg PO QID testosterone 20.25 mg/1.25 gram (1.62 %) gel in metered-dose pump 4 pump topical DAILY omeprazole 20 mg capsule,delayed release(DR/EC) 20 mg PO DAILY triamcinolone acetonide 0.1 % cream topical Patient Comments: APPLY TOPICALLY TO THE AFFECTED AREA(S) TWICE DAILY TO RASH NEEDED. USE FOR three WEEKS AND take 1 WEEK break. REPEAT. AVOID USE ON underarms, groin, AND face. cyanocobalamin (vitamin B-12) 1,000 mcg capsule 1,000 mcg PO DAILY cholecalciferol (vitamin D3) 10 mcg (400 unit) capsule 10 mcg PO DAILY phenylephrine HCl 10 mg tablet 10 mg PO Q4-6H PRN lisinopril 10 mg tablet 10 mg PO DAILY 90 Days Qty: 90 2RF cyclobenzaprine 10 mg tablet 10 mg PO TID PRN (Reason: muscle spasm) Qty: 30 0RF lidocaine 5 % adhesive patch,medicated 3 patch topical DAILY PRN (Reason: pain) Qty: 90 0RF Rx Instructions: up to 3 patches, leave on most painful area for up to 12 hrs buspirone 10 mg tablet 10 mg PO BID 90 Days Qty: 180 1RF alprazolam 0.25 mg tablet 0.25 mg PO DAILY PRN (Reason: anxiety) Qty: 10 0RF celecoxib 200 mg capsule 200 mg PO BID 90 Days Qty: 180 1RF clopidogrel 75 MG tablet 75 mg PO DAILY citalopram 20 MG tablet 20 mg PO BID metformin 1,000 MG tablet 1,000 mg PO BID albuterol sulfate [Ventolin HFA] 18 GM HFA aerosol inhaler 1 - 2 puffs inhalation Q4-6H PRN (Reason: Shortness Of Breath Or Wheezing) empagliflozin-linagliptin [Glyxambi] 1 EACH tablet 1 ea PO DAILY cetirizine [Zyrtec] 10 MG tablet 10 mg PO DAILY aspirin 81 MG tablet,delayed release (DR/EC) 81 mg PO DAILY Referrals Follow up/Referrals: Aleksandr Feldman MD [Staff Physician] - See instructions Activity Restrictions/Add. Instructions Additional Instructions/Restrictions: You were evaluated in the emergency department today. Please follow-up closely with your primary care provider. I also advised close follow-up with cardiology given your chest pain. Return to the emergency department for new or worsening symptoms. Clinical Impressions Clinical Impression: Chest pain Instructions Patient Instructions: DI for Atypical Chest Pain Discharge ED Provider: Patricia Alcantara HPI <J Ashwin Willis MD - Last Filed: 01/15/24 14:05> General Chief Complaint: Chest Pain Stated Complaint: Chest Pain Time Seen by Provider: 01/15/24 13:50 History of Present Illness HPI narrative: Patient is a 53-year-old male with a known history of coronary disease had an LAD stent [place] [address] Feldman and is currently followed by Dr. Domínguez. At [facility] and having recently had a negative stress test in May this past year presents today with chest pain. He was upstairs with his who is getting infusions for an ongoing illness which has caused significant anxiety and stress in the family and he states that his chest pain started 30 minutes prior to arrival. Located substernal squeezing in nature nonradiating no diaphoresis associated this but has had some mild shortness of breath. No cough fevers chills lower extremity swelling prolonged immobilizations mopped assist history of DVT or PE etc. Patient has been compliant with aspirin and Plavix. Related Data Home Medications Medication Instructions Recorded Confirmed albuterol sulfate 90 mcg/actuation 1 - 2 puffs inhalation Q4-6H PRN 12/03/18 01/06/24 aerosol inhaler (Ventolin HFA) Shortness Of Breath Or Wheezing aspirin 81 mg tablet,delayed 81 mg PO DAILY HEART HEALTH 12/03/18 01/06/24 release cetirizine 10 mg tablet (Zyrtec) 10 mg PO DAILY Allergy symptoms 12/03/18 01/06/24 citalopram 20 mg tablet 20 mg PO BID Depression 12/03/18 01/06/24 clopidogrel 75 mg tablet 75 mg PO DAILY Blood thinner 12/03/18 01/06/24 empagliflozin 25 mg-linagliptin 5 1 ea PO DAILY DM 12/03/18 01/06/24 mg tablet (Glyxambi) metformin 1,000 mg tablet 1,000 mg PO BID DM 12/03/18 01/06/24 atorvastatin 20 mg tablet 20 mg PO DAILY 12/16/23 01/06/24 cholecalciferol (vitamin D3) 10 10 mcg PO DAILY 12/16/23 01/06/24 mcg (400 unit) capsule cyanocobalamin (vitamin B-12) 1,000 mcg PO DAILY 12/16/23 01/06/24 1,000 mcg capsule methocarbamol 500 mg tablet 500 mg PO QID 12/16/23 01/06/24 metoprolol succinate 25 mg 25 mg PO DAILY 12/16/23 01/06/24 tablet,extended release 24 hr omeprazole 20 mg capsule,delayed 20 mg PO DAILY 12/16/23 01/06/24 release phenylephrine HCl 10 mg tablet 10 mg PO Q4-6H PRN 12/16/23 01/06/24 testosterone 4 pump topical DAILY 12/16/23 01/06/24 triamcinolone acetonide 0.1 % applic topical 12/16/23 01/06/24 topical cream Previous Rx's Medication Instructions Recorded cyclobenzaprine 10 mg tablet 10 mg PO TID PRN muscle spasm #30 12/16/23 tabs lidocaine 5 % topical patch 3 patch topical DAILY PRN pain #90 12/16/23 ea lisinopril 10 mg tablet 10 mg PO DAILY HTN 90 days #90 tabs 12/16/23 alprazolam 0.25 mg tablet 0.25 mg PO DAILY PRN anxiety #10 01/06/24 tabs buspirone 10 mg tablet 10 mg PO BID 90 days #180 tabs 01/06/24 celecoxib 200 mg capsule 200 mg PO BID 90 days #180 caps 01/10/24 Allergies Allergy/AdvReac Type Severity Reaction Status Date / Time diphenhydramine Allergy Unknown AGITATION Verified 01/06/24 13:15 [From BENADRYL] mirtazapine [From REMERON] Allergy Unknown Verified 01/06/24 13:15 [facility] <Peña Willis MD - Last Filed: 01/15/24 14:05> [facility] Disclaimer: The information contained in this section may have been updated after the patient was seen, as this information can be updated by other users. Medical History (Updated 01/15/24 @ 14:00 by Peña Willis MD) Bowel incontinence Increased bowel frequency Bowel obstruction Depression Anxiety Hypertension Bulging disc Type 2 diabetes mellitus without complications CAD (coronary artery disease) Asperger syndrome Surgical History History of right heart catheterization History of tonsillectomy and adenoidectomy H/O hernia repair Family History Family/Other Coronary artery disease Heart attack Cancer neck Epilepsy Autism Diabetes Stroke Social History Smoking Status: Never smoker alcohol intake: never current occupational status: other Travel in the last 8 weeks: None current occupational exposures/hazards: No caffeine: Yes <Peña Willis MD - Last Filed: 01/15/24 14:05> ROS Obtained: Yes All systems reviewed & no additional complaints except as documented Physical Exam <Peña Willis MD - Last Filed: 01/15/24 14:05> General General appearance: alert and in no apparent distress Respiratory Respiratory exam: Present normal lung sounds bilaterally; Absent respiratory distress Cardiovascular Cardiovascular exam: Present regular rate and normal rhythm Abdominal Exam Abdominal exam: Present soft; Absent distention or tenderness Neurological Exam Neurological exam: Present alert and oriented X3 HEART Score <Peña Willis MD - Last Filed: 01/15/24 14:05> HEART Score HEART Score assessment performed?: Yes History (anamnesis): Slightly suspicious ECG: Non-specific disturbance Age: 45-65 years Risk factors: Atherosclerosis history Troponin: </= normal limit HEART Score: 4 <Patricia Alcantara DO - Last Filed: 01/15/24 18:53> HEART Score HEART Score: 4 Critical Care <Peña Willis MD - Last Filed: 01/15/24 14:05> Critical Care Time Critical Care Time: No Medical Decision Making <Peña Willis MD - Last Filed: 01/15/24 14:05> Nabil Inquiry Pt receiving controlled substance: No Vital Signs Vital Signs: 01/15/24 13:50 01/15/24 14:00 01/15/24 14:30 Temperature 97.6 F Temperature Source Oral Pulse Rate 71 69 Pulse Rate [Right] 72 Respiratory Rate 17 17 15 Blood Pressure 140/93 H 117/88 Blood Pressure [Right Arm] 140/93 H Blood Pressure Mean [Right Arm] 108 Blood Pressure Source [Right Arm] Automatic Cuff 02 Sat by Pulse Oximetry 95 94 L 94 L Oxygen Delivery Method Room Air Room Air Room Air Oxygen Flow Rate (LPM) 01/15/24 15:00 01/15/24 15:30 01/15/24 16:00 Temperature Temperature Source Pulse Rate 71 69 65 Pulse Rate [Right] Respiratory Rate 14 13 13 Blood Pressure 101/72 L 117/70 121/79 Blood Pressure [Right Arm] Blood Pressure Mean [Right Arm] Blood Pressure Source [Right Arm] 02 Sat by Pulse Oximetry 94 L 97 98 Oxygen Delivery Method Room Air Nasal Cannula Nasal Cannula Oxygen Flow Rate (LPM) 2 2 01/15/24 16:30 01/15/24 17:00 01/15/24 18:08 Temperature 98.0 F Temperature Source Oral Pulse Rate 68 62 70 Pulse Rate [Right] Respiratory Rate 17 17 Blood Pressure 112/77 102/71 L 138/74 Blood Pressure [Right Arm] Blood Pressure Mean [Right Arm] Blood Pressure Source [Right Arm] 02 Sat by Pulse Oximetry 97 97 Oxygen Delivery Method Room Air Room Air Room Air Oxygen Flow Rate (LPM) Lab Data Labs: Lab Results 01/15/24 13:51: D-Dimer 0.34 01/15/24 13:52: WBC 5.5, RBC 5.49, Hgb 17.2, Hct 50.5, MCV 92.0, MCH 31.3 H, MCHC 34.1, RDW 13.6, Plt Count 189, MPV 8.2, Neut % (Auto) 49.6, Lymph % (Auto) 40.2, Robeson % (Auto) 7.1, Eos % (Auto) 1.9, Baso % (Auto) 1.2, Neut # (Auto) 2.7, Lymph # (Auto) 2.2, [place] # (Auto) 0.4, Eos # (Auto) 0.1, Baso # (Auto) 0.1, Sodium 140, Potassium 4.0, Chloride 104, Carbon Dioxide 26, Anion Gap 14.0, BUN 19, Creatinine 0.70, Estimated Creat Clear 164, Estimated GFR 119, Est GFR ( Amer) 144, Glucose 199 H, Calcium 9.2, Total Bilirubin 1.1, AST 57, ALT 55, Alkaline Phosphatase 121, Troponin I < 0.01, Total Protein 6.8, Albumin 4.3, Globulin 2.5, Albumin/Globulin Ratio 1.7 01/15/24 16:37: Troponin I < 0.01 01/15/24 13:52 01/15/24 13:52 Response Orders (Tests/Meds): ED MEDICATIONS Discontinued Medications Generic Name Dose Route Start Last Admin Trade Name Freq PRN Reason Stop Dose Admin Acetaminophen 1,000 mg 01/15/24 16:52 01/15/24 17:04 Acetaminophen 500mg Tab PO 01/15/24 16:53 1,000 mg ONCE ONE Administration Belladonna Alkaloids 60 ml 01/15/24 16:52 01/15/24 17:04 Belladonna Alkaloids 60 Ml Ml PO 01/15/24 16:53 60 ml ONCE ONE Administration Famotidine 20 mg 01/15/24 16:52 01/15/24 17:04 Famotidine 20mg Tablet PO 01/15/24 16:53 20 mg ONCE ONE Administration Ketorolac Tromethamine 15 mg 01/15/24 16:52 01/15/24 17:04 Ketorolac 30mg/Ml Vial IV 01/15/24 16:53 15 mg ONCE ONE Administration Sodium Chloride 10 ml 01/15/24 13:57 Sodium Chloride 0.9% 10ml Flush Syringe IV 02/14/24 13:56 NEEDED PRN Maintain IV Site ORDERS Category Date Time Status CXR --portable [XR chest portable] Stat Exams 01/15/24 13:56 Completed Complete Blood Count Auto Diff Stat Lab 01/15/24 13:52 Completed Comprehensive Metabolic Panel Stat Lab 01/15/24 13:52 Completed D-Dimer Stat Lab 01/15/24 13:51 Completed Troponin I Q3H Lab 01/15/24 16:37 Completed Troponin I Q3H Lab 01/15/24 20:00 Ordered Troponin I Stat Lab 01/15/24 13:52 Completed ECG Data Tracing #1: Attestation: I reviewed this ECG and interpreted as documented below: ECG Narrative: Ventricular rate of 68 normal sinus rhythm there are inferior Q waves in leads III and aVF this is consistent with old EKG in comparison from May 2022 no acute ischemic changes noted or ST segment elevations or depressions T wave inversions in the inferior leads are also old there is an indeterminate axis no acute conduction abnormality MDM Narrative Medical Decision Narrative: Very well-appearing 53-year-old male presents today speaking very softly with his eyes closed will open his eyes to have a conversation with me seems very anxious and stressed out especially with the story of what is going on with his . Does have a known history however of coronary artery disease but suspicion is low today for acute coronary syndrome. EKG is unchanged from 2021 does have some old ischemic changes but nothing acute. Patient has not PERC negative given his age we will get a D-dimer and utilize years criteria for CT PE evaluation if dimer is above 1.0. Also will need serial troponins given the onset of symptoms being only 30 minutes prior to arrival. ED observation order has been placed for that and I anticipate his workup will be negative. He will be transition to ongoing physician at [address] Patricia Alcantara. <Patricia Alcantara, DO - Last Filed: 01/15/24 18:53> Vital Signs Vital Signs: 01/15/24 13:50 01/15/24 14:00 01/15/24 14:30 Temperature 97.6 F Temperature Source Oral Pulse Rate 71 69 Pulse Rate [Right] 72 Respiratory Rate 17 17 15 Blood Pressure 140/93 H 117/88 Blood Pressure [Right Arm] 140/93 H Blood Pressure Mean [Right Arm] 108 Blood Pressure Source [Right Arm] Automatic Cuff 02 Sat by Pulse Oximetry 95 94 L 94 L Oxygen Delivery Method Room Air Room Air Room Air Oxygen Flow Rate (LPM) 01/15/24 15:00 01/15/24 15:30 01/15/24 16:00 Temperature Temperature Source Pulse Rate 71 69 65 Pulse Rate [Right] Respiratory Rate 14 13 13 Blood Pressure 101/72 L 117/70 121/79 Blood Pressure [Right Arm] Blood Pressure Mean [Right Arm] Blood Pressure Source [Right Arm] 02 Sat by Pulse Oximetry 94 L 97 98 Oxygen Delivery Method Room Air Nasal Cannula Nasal Cannula Oxygen Flow Rate (LPM) 2 2 01/15/24 16:30 01/15/24 17:00 01/15/24 18:08 Temperature 98.0 F Temperature Source Oral Pulse Rate 68 62 70 Pulse Rate [Right] Respiratory Rate 17 17 Blood Pressure 112/77 102/71 L 138/74 Blood Pressure [Right Arm] Blood Pressure Mean [Right Arm] Blood Pressure Source [Right Arm] 02 Sat by Pulse Oximetry 97 97 Oxygen Delivery Method Room Air Room Air Room Air Oxygen Flow Rate (LPM) Lab Data Labs: Lab Results 01/15/24 13:51: D-Dimer 0.34 01/15/24 13:52: WBC 5.5, RBC 5.49, Hgb 17.2, Hct 50.5, MCV 92.0, MCH 31.3 H, MCHC 34.1, RDW 13.6, Plt Count 189, MPV 8.2, Neut % (Auto) 49.6, Lymph % (Auto) 40.2, Robeson % (Auto) 7.1, Eos % (Auto) 1.9, Baso % (Auto) 1.2, Neut # (Auto) 2.7, Lymph # (Auto) 2.2, [place] # (Auto) 0.4, Eos # (Auto) 0.1, Baso # (Auto) 0.1, Sodium 140, Potassium 4.0, Chloride 104, Carbon Dioxide 26, Anion Gap 14.0, BUN 19, Creatinine 0.70, Estimated Creat Clear 164, Estimated GFR 119, Est GFR ( Amer) 144, Glucose 199 H, Calcium 9.2, Total Bilirubin 1.1, AST 57, ALT 55, Alkaline Phosphatase 121, Troponin I < 0.01, Total Protein 6.8, Albumin 4.3, Globulin 2.5, Albumin/Globulin Ratio 1.7 01/15/24 16:37: Troponin I < 0.01 Response Orders (Tests/Meds): ED MEDICATIONS Discontinued Medications Generic Name Dose Route Start Last Admin Trade Name Ironq PRN Reason Stop Dose Admin Acetaminophen 1,000 mg 01/15/24 16:52 01/15/24 17:04 Acetaminophen 500mg Tab PO 01/15/24 16:53 1,000 mg ONCE ONE Administration Belladonna Alkaloids 60 ml 01/15/24 16:52 01/15/24 17:04 Belladonna Alkaloids 60 Ml Ml PO 01/15/24 16:53 60 ml ONCE ONE Administration Famotidine 20 mg 01/15/24 16:52 01/15/24 17:04 Famotidine 20mg Tablet PO 01/15/24 16:53 20 mg ONCE ONE Administration Ketorolac Tromethamine 15 mg 01/15/24 16:52 01/15/24 17:04 Ketorolac 30mg/Ml Vial IV 01/15/24 16:53 15 mg ONCE ONE Administration Sodium Chloride 10 ml 01/15/24 13:57 Sodium Chloride 0.9% 10ml Flush Syringe IV 02/14/24 13:56 NEEDED PRN Maintain IV Site ORDERS Category Date Time Status CXR --portable [XR chest portable] Stat Exams 01/15/24 13:56 Completed Complete Blood Count Auto Diff Stat Lab 01/15/24 13:52 Completed Comprehensive Metabolic Panel Stat Lab 01/15/24 13:52 Completed D-Dimer Stat Lab 01/15/24 13:51 Completed Troponin I Q3H Lab 01/15/24 16:37 Completed Troponin I Q3H Lab 01/15/24 20:00 Ordered Troponin I Stat Lab 01/15/24 13:52 Completed MDM Narrative Medical Decision Narrative: Very well-appearing 53-year-old male presents today speaking very softly with his eyes closed will open his eyes to have a conversation with me seems very anxious and stressed out especially with the story of what is going on with his . Does have a known history however of coronary artery disease but suspicion is low today for acute coronary syndrome. EKG is unchanged from 2021 does have some old ischemic changes but nothing acute. Patient has not PERC negative given his age we will get a D-dimer and utilize years criteria for CT PE evaluation if dimer is above 1.0. Also will need serial troponins given the onset of symptoms being only 30 minutes prior to arrival. ED observation order has been placed for that and I anticipate his workup will be negative. He will be transition to ongoing physician at [address] Patricia Alcantara. [place], DO: On my assessment of the patient, he is resting comfortably and sleeping in bed with reassuring vital signs on cardiac telemetry, but he complains of pain with palpation of his chest and movement. I feel he likely has musculoskeletal chest pain. He was given IV Toradol and oral Tylenol. He was also given GI cocktail and Pepcid for symptomatic improvement in case this could be esophageal in nature, as he does have a history of GERD. D-dimer negative, troponins negative x 2. EKG reassuring. Ultimately given reassuring workup and exam, it is felt that the patient is appropriate for discharge home with diagnosis of noncardiac chest pain. He was given instructions for close follow-up and strict return precautions. He was discharged after all questions were answered.
[2024-01-15 14:03] LABS: Basophils # 0.1 K/mm3 (0-0.2); Basophils % 1.2 % (0.1-2.0); Eosinophils # 0.1 K/mm3 (0.0-0.4); Eosinophils % 1.9 % (0.1-12.0); Hematocrit 50.5 % (42.0-52.0); Hemoglobin 17.2 g/dL (14.1-18.0); Lymphocytes # 2.2 K/mm3 (0.7-4.5); Lymphocytes % 40.2 % (10-50); Mean Corpuscular HGB Conc 34.1 g/dL (31.8-35.4); Mean Corpuscular Hemoglobin 31.3 pg (27.0-31.2); Mean Platelet Volume 8.2 fl (7.4-10.4); Monocytes # 0.4 K/mm3 (0.1-1.0); Monocytes % 7.1 % (1.7-9.3); Neutrophils # 2.7 K/mm3 (1.8-7.8); Neutrophils % 49.6 % (37.0-80.0); Platelet Count 189 K/mm3 (142-424); Red Blood Count 5.49 M/mm3 (4.60-6.20); Red Cell Distribution Width 13.6 % (11.5-17.5); White Blood Count 5.5 K/mm3 (4.8-10.8)
--- NOTE | 2024-01-15 14:14 | PC.NURSE ---
RAD at for CXR
--- NOTE | 2024-01-15 14:29 | PC.NURSE ---
pt sleeping in bed call light in reach
[2024-01-15 14:56] LABS: Alanine Aminotransferase 55 U/L (12-78); Albumin Level 4.3 g/dl (3.5-5.0); Albumin/Globulin Ratio 1.7 (1.1-1.8); Alkaline Phosphatase 121 U/L (38-126); Aspartate Amino Transferase 57 U/L (17-59); Bilirubin,Total 1.1 mg/dl (0.2-1.3); Blood Urea Nitrogen 19 mg/dl (9-20); Calcium 9.2 mg/dl (8.4-10.2); Carbon Dioxide 26 mmol/L (22.0-30.0); Chloride 104 mmol/L (98-107); Creatinine Clearance Estimated 164 mL/min (50-200); Estimated Glomerular Filt Rate 119 ml/min (>60); GFR (African American) 144 ML/MIN (>60); Globulin 2.5 g/dL (1.3-3.2); Glucose 199 mg/dl (74-100); Sodium 140 mmol/L (136-145); Total Protein,Serum 6.8 g/dl (6.3-8.2)
[2024-01-15 15:10] LABS: Troponin I < 0.01 ng/ml (0.00-0.034)
--- NOTE | 2024-01-15 15:12 | PC.NURSE ---
as pt is sleeping, his spo2 drops to mid 80s. states he wears a cpap at night. Placed pt on 2lpm nc for supportive care.
[2024-01-15 16:08] LABS: D-Dimer 0.34 ug/mL (0.0-0.5)
[2024-01-15] MEDS: BELLADONNA ALKALOIDS 60 ML ML PO (17:04)
[2024-01-15] MEDS: FAMOTIDINE 20MG TABLET 20 MG PO (17:04)
[2024-01-15] MEDS: KETOROLAC 30MG/ML VIAL 15 MG IV (17:04)
[2024-01-15] MEDS: ACETAMINOPHEN 500MG TAB 1000 MG PO (17:04)
[2024-01-15 17:35] LABS: Troponin I < 0.01 ng/ml (0.00-0.034)
== END 2024-01-15 18:10 | disposition home or self-care (01) ==
PROVIDERS: Student in an Organized Health Care Education/Training Program; Emergency Provider Emergency Medicine; PCP Nurse Practitioner Family
DX: R07.9 Chest pain, unspecified (principal); E11.65 Type 2 diabetes mellitus with hyperglycemia; I11.9 Hypertensive heart disease without heart failure; I25.10 Atherosclerotic heart disease of native coronary artery without angina pectoris; Z95.5 Presence of coronary angioplasty implant and graft; Z79.84 Long term (current) use of oral hypoglycemic drugs
CPT/HCPCS: 71045; 80053; 84484; 85025; 85378; 93005; 96374; 99284

== ENCOUNTER 2024-02-04 15:00 | Outpatient (RCR) | payer MEDICARE, MEDICAID, SELFPAY | END 2024-02-04 16:00 | disposition home or self-care (01) | LOC: PT 15:00 | PROVIDERS: Visit Provider Orthopaedic Surgery Adult Reconstructive Orthopaedic Surgery | DX: M51.36 Other intervertebral disc degeneration, lumbar region (principal) | CPT/HCPCS: 97010; 97012; 97014; 97110; 97163; 97164; G0283 ==

== ENCOUNTER 2024-03-30 12:51 | Outpatient (POV) | payer MEDICARE, MEDICAID, SELFPAY ==
[2024-03-30 13:24] VITALS: BP 120/83; PULSE 81; RESP 18; O2SAT 96; BMI 30.1
--- NOTE | 2024-03-30 13:33 | EXP.PAIN.OV ---
HPI Data of Consult Patient: new to practice Consult date: 03/30/24 Requesting Physician: Patricia Addison APRN Primary Care Provider: Hannah Turner APRN Consult Narrative Reason for consult: Low back pain, left leg pain History of present illness: Mr. Alarcon is a 54 year old male who presents today as a new patient. He is a referral from Sia Turner's office. Today he rates his pain a 2 out of 10 however states that the pain will get much worse with going up to 5 out of 10 with any increased activities. He states that is worse with walking or any type of lifting aggravates his symptoms. Patient does state this has been going on for over a year and related to any specific trauma or injury. Patient does state that he feels like a lot of it is wearing tighter. Patient describes it as an aching, throbbing sensation with some numbness and tingling down his entire left extremity. He does state the pain interferes with his ability perform activities of daily living such as cooking and cleaning. Patient denies any symptoms into his right leg. Patient has tried Tylenol along with heat and ice and topicals with minimal relief. Patient denies any prior surgery. He does state that he did complete physical therapy and had no additional improvement from this. Patient has continued to do at home stretching exercise that was physician guided for longer than 6 weeks with no additional relief. Patient does state that he did end up having 1 injection but he is not sure what exactly it was back in September from [facility] and states that it lasted approximately 2 days and then went back to his baseline. Patient states that the injection itself was very painful. Patient is open to options but does state he has a heart history and is on blood thinner that is written by Olivia roman. Patient does also state he is a diabetic however is not on insulin. His Nabil has been reviewed and is appropriate. CC: Patricia Addison APRN [facility] Disclaimer: The information contained in this section may have been updated after the patient was seen, as this information can be updated by other users. Medical History (Updated 03/30/24 @ 13:37 by Patricia Addison APRN) Bowel incontinence Increased bowel frequency Bowel obstruction Depression Anxiety Hypertension Bulging disc Type 2 diabetes mellitus without complications CAD (coronary artery disease) Asperger syndrome Surgical History History of right heart catheterization History of tonsillectomy and adenoidectomy H/O hernia repair Family History Family/Other Coronary artery disease Heart attack Cancer neck Epilepsy Autism Diabetes Stroke Social History (Updated 03/30/24 @ 13:25 by Angelika Mcginnis RN) Smoking Status: Never smoker alcohol intake: never current occupational status: other Travel in the last 8 weeks: None current occupational exposures/hazards: No caffeine: Yes Review of Systems Review of Systems Review of systems:: pertinent systems reviewed and negative unless documented below Review of systems (narrative): Review of Systems: General: No recent weight changes, no fever, no sleep disturbances Respiratory: No cough, no shortness of air, no recurring pulmonary infections Cardiovascular/peripheral vascular: No chest pain, no palpitations, no edema, no shortness of breath Gastrointestinal: No new onset incontinence, normal bowel movements reported Genitourinary: No new onset incontinence Musculoskeletal: Low back pain, left leg pain Psychiatric: [Normal mood/affect] Neurological: [Denies weakness in extremities], [denies balance issues] Meds Home Medications and Allergies Home Medications ?Medication ?Instructions ?Recorded ?Confirmed ?Type albuterol sulfate 90 mcg/actuation 1 - 2 puffs inhalation Q4-6H PRN 12/03/18 03/30/24 History aerosol inhaler (Ventolin HFA) Shortness Of Breath Or Wheezing aspirin 81 mg tablet,delayed 81 mg PO DAILY HEART HEALTH 12/03/18 03/30/24 History release cetirizine 10 mg tablet (Zyrtec) 10 mg PO DAILY Allergy symptoms 12/03/18 03/30/24 History clopidogrel 75 mg tablet 75 mg PO DAILY Blood thinner 12/03/18 03/30/24 History empagliflozin 25 mg-linagliptin 5 1 ea PO DAILY DM 12/03/18 03/30/24 History mg tablet (Glyxambi) metformin 1,000 mg tablet 1,000 mg PO BID DM 12/03/18 03/30/24 History atorvastatin 20 mg tablet 20 mg PO DAILY 12/16/23 03/30/24 History lidocaine 5 % topical patch 3 patch topical DAILY PRN pain #90 12/16/23 03/30/24 Rx ea lisinopril 10 mg tablet 10 mg PO DAILY HTN 90 days #90 tabs 12/16/23 03/30/24 Rx metoprolol succinate 25 mg 25 mg PO DAILY 12/16/23 03/30/24 History tablet,extended release 24 hr omeprazole 20 mg capsule,delayed 20 mg PO DAILY 12/16/23 03/30/24 History release triamcinolone acetonide 0.1 % 1 applic topical DIRECTED Skin 12/16/23 03/30/24 History topical cream Condition alprazolam 0.25 mg tablet 0.25 mg PO DAILY PRN anxiety #10 01/06/24 03/30/24 Rx tabs celecoxib 200 mg capsule 200 mg PO BID 90 days #180 caps 01/10/24 03/30/24 Rx methocarbamol 500 mg tablet 500 mg PO QID PRN muscle spasm 01/21/24 03/30/24 Rx #120 tabs buspirone 5 mg tablet 5 mg PO BID 90 days #180 tabs 03/18/24 03/30/24 Rx escitalopram oxalate 20 mg tablet 20 mg PO DAILY #30 tabs 03/18/24 03/30/24 Rx New Prescriptions to Start Prescriptions: Allergies Allergy/AdvReac Type Severity Reaction Status Date / Time diphenhydramine Allergy Unknown AGITATION Verified 03/18/24 12:54 [From BENADRYL] mirtazapine [From REMERON] Allergy Unknown Verified 03/18/24 12:54 Objective Vital signs: Pulse Resp BP Pulse Ox O2 Del Method 81 18 120/83 96 Room Air 03/30/24 13:24 03/30/24 13:24 03/30/24 13:24 03/30/24 13:24 03/30/24 13:24 Narrative: Physical Exam: General: Alert and oriented x3, no acute distress, pleasant and cooperative Lungs: Respirations even and unlabored, symmetrical chest expansion Eyes: PERRL Musculoskeletal: Flexion and extension of lumbar [spine] somewhat guarded secondary to pain, [antalgic gait noted] positive left leg raise with decreased sensation to light touch and decreased reflexes Neurological: Speech clear, no gross sensory deficit Additional findings Additional findings: FINDINGS: Multiplanar MR imaging of the lumbar spine was performed without contrast. On the sagittal T2-weighted images, disc degeneration is seen at several levels. There is mild anterolisthesis of L5 on S1. Several Schmorl's nodes are seen. There is mild leftward curvature. There is no evidence of fracture. The conus has an unremarkable appearance. T12-L1: There is no significant canal stenosis or neural foraminal narrowing. L1-2: There is no significant canal stenosis or neural foraminal narrowing. L2-3: An annular bulge and facet arthropathy are present. There is a left paracentral annular tear with mild right neural foraminal narrowing. L3-4: An annular bulge and facet arthropathy are present. There is mild right neural foraminal narrowing. L4-5: An annular bulge and facet arthropathy are present. There is a small central disc protrusion with moderate right and mild left neural foraminal narrowing. L5-S1: An annular bulge and facet arthropathy are present. There is a left posterolateral disc protrusion resulting in left lateral recess stenosis and severe left neural foraminal narrowing. There is left L5 nerve root impingement. IMPRESSION: Left posterolateral disc protrusion at L5-S1 results in severe left neural foraminal narrowing, left lateral recess stenosis and left L5 nerve root impingement. Multilevel degenerative disc disease and spondylosis. Small central disc protrusion at L4-5 with mild left neural foraminal narrowing. Reviewed, Interpreted and Dictated by Daron Colón III, MD Transcribed by Vandana Oro Authenticated and . [facility] Assessment and Plan *Assessment and plan (1) Lumbar nerve root impingement: Status: Acute Category: Medical Code(s): M54.16 - Radiculopathy, lumbar region (2) Lumbar radiculopathy: Status: Acute Category: Medical Code(s): M54.16 - Radiculopathy, lumbar region (3) Degenerative disc disease, lumbar: Status: Acute Category: Medical Code(s): M51.36 - Other intervertebral disc degeneration, lumbar region (4) Lumbar spinal stenosis: Status: Acute Qualifiers: Neurogenic claudication status: with neurogenic claudication Qualified Code(s): M48.062 - Spinal stenosis, lumbar region with neurogenic claudication Category: Medical Code(s): M48.061 - Spinal stenosis, lumbar region without neurogenic claudication Plan Patient is experiencing significant pain throughout his low back with radiating symptoms down his entire left extremity. Patient does have numbness and tingling. Patient did have limited range of motion of his lumbar spine with a positive left leg raise and decreased sensation light touch. I did discuss with the patient that he may benefit from a left transforaminal epidural steroid injection. Risk and benefits were discussed with patient and he would like to proceed forward with this plan of care. Patient is currently on blood thinners and is written by Olivia Roman of [place]. We will reach out to this provider to confirm he can stop this medication prior to this injection. Patient was also counseled to take his diabetic medication as scheduled and that if he comes in on the day of the procedure and is close to 300 on his glucose he will have to be rescheduled. Patient acknowledges understanding and agrees with this plan of care. Patient has tried and failed conservative therapy including at home stretching and exercise for longer than 6 weeks that was physician guided from his physical therapist. Patient will be submitted for a left transforaminal epidural steroid injection L4-L5 and L5-S1 under fluoroscopy. Patient has been instructed to contact the clinic with any concerns before the next appointment. Dr. Medina has reviewed this note and agrees with this plan of care. This note was dictated using voice recognition software and make contain errors or omissions. All injections are used with Lidocaine or Bupivacaine and Depo Medrol.
== END 2024-03-30 23:59 | disposition home or self-care (01) ==
PROVIDERS: PCP Nurse Practitioner Family; Visit Provider Nurse Practitioner Family
DX: M48.062 Spinal stenosis, lumbar region with neurogenic claudication; M51.16 Intervertebral disc disorders with radiculopathy, lumbar region; I10 Essential (primary) hypertension; Z73.89 Other problems related to life management difficulty; E11.9 Type 2 diabetes mellitus without complications; I25.10 Atherosclerotic heart disease of native coronary artery without angina pectoris; Z79.02 Long term (current) use of antithrombotics/antiplatelets; Z79.84 Long term (current) use of oral hypoglycemic drugs
CPT/HCPCS: 99202; G0463

== ENCOUNTER 2024-04-17 00:29 | Emergency (ER) | payer MEDICARE, SELFPAY ==
--- NOTE | 2024-04-17 00:40 | ECG_ITS ---
APPROVED REPORT Exam: Resting ECG HR:77 bpm ECG Measurements Heart Rate 77 AXES [place] 186 P 32 QRSd 91 QRS -23 QT 362 T -4 QTc 394 Conclusion SINUS RHYTHM MINIMAL VOLTAGE CRITERIA FOR LVH, CONSIDER NORMAL VARIANT [MEETS CRITERIA IN ONE OF: R(aVL), S(V1), R(V5), R(V5/V6)+S(V1)] POSSIBLE ANTERIOR MYOCARDIAL INFARCTION , PROBABLY OLD [30 ms Q WAVE IN V3/V4, OR R < 0.2 mV IN V4] BORDERLINE ECG UNCONFIRMED REPORT Electronically signed by : FARHAN DOBBINS, 04/17/2024 06:50:09
[2024-04-17 00:42] VITALS: BP 143/72; PULSE 72; RESP 16; TEMP 36.2; O2SAT 98; BMI 30.2
--- NOTE | 2024-04-17 00:51 | HMH.EDGENADL ---
Discharge Plan Disposition Patient Disposition: Home, Self-Care Prescriptions Prescriptions: No Action metoprolol succinate 25 mg tablet extended release 24 hr 25 mg PO DAILY atorvastatin 20 mg tablet 20 mg PO DAILY omeprazole 20 mg capsule,delayed release(DR/EC) 20 mg PO DAILY triamcinolone acetonide 0.1 % cream 1 applic topical DIRECTED Patient Comments: APPLY TOPICALLY TO THE AFFECTED AREA(S) TWICE DAILY TO RASH NEEDED. USE FOR three WEEKS AND take 1 WEEK break. REPEAT. AVOID USE ON underarms, groin, AND face. lisinopril 10 mg tablet 10 mg PO DAILY 90 Days Qty: 90 2RF lidocaine 5 % adhesive patch,medicated 3 patch topical DAILY PRN (Reason: pain) Qty: 90 0RF Rx Instructions: up to 3 patches, leave on most painful area for up to 12 hrs escitalopram oxalate 20 mg tablet 20 mg PO DAILY Qty: 30 2RF buspirone 5 mg tablet 5 mg PO BID 90 Days Qty: 180 1RF alprazolam 0.25 mg tablet 0.25 mg PO DAILY PRN (Reason: anxiety) Qty: 10 0RF methocarbamol 500 mg tablet 500 mg PO QID PRN (Reason: muscle spasm) Qty: 120 0RF celecoxib 200 mg capsule 200 mg PO BID 90 Days Qty: 180 1RF clopidogrel 75 MG tablet 75 mg PO DAILY metformin 1,000 MG tablet 1,000 mg PO BID albuterol sulfate [Ventolin HFA] 18 GM HFA aerosol inhaler 1 - 2 puffs inhalation Q4-6H PRN (Reason: Shortness Of Breath Or Wheezing) Glyxambi 1 EACH tablet 1 ea PO DAILY cetirizine [Zyrtec] 10 MG tablet 10 mg PO DAILY aspirin 81 MG tablet,delayed release (DR/EC) 81 mg PO DAILY Referrals Follow up/Referrals: Hannah Tunrer APRN [Primary Care Provider] - See instructions Activity Restrictions/Add. Instructions Additional Instructions/Restrictions: Please follow-up with your primary care provider. Please return to the emergency department if you develop any new or worsening symptoms or become concerned for your health. Clinical Impressions Clinical Impression: Redness of skin Print Language Print Language: Kiswahili Discharge ED Provider: Dougie Navarro Adult HPI General Chief complaint: Allergic Reaction Stated complaint: soa, chest tightness, weakness, rash Time Seen by Provider: 04/17/24 00:36 Mode of Arrival: Family Vehicle Source of Information: Patient Limitations: No Limitations Description of Symptoms (Recalled from ER Triage Doc. by RN): 54 yo to be evaluated for complaints of possible allergic reaction. vss. History of Present Illness HPI narrative: 54-year-old male presents for multiple complaints. He reports that this evening he started developing redness all over his upper chest, upper back, bilateral upper arms and upper legs. Denies any fevers. Denies any changes in detergents or new exposures. Reports he got a steroid injection in his right shoulder a couple of days ago and had some skin reaction to the Band-Aid they used. Denies any significant allergies. Reports no throat swelling shortness of breath. He does report that his chest feels a little tight. This started after he started having skin pain. He denies any central chest pain. Related Data Home Medications ?Medication ?Instructions ?Recorded ?Confirmed albuterol sulfate 90 mcg/actuation 1 - 2 puffs inhalation Q4-6H PRN 12/03/18 04/01/24 aerosol inhaler (Ventolin HFA) Shortness Of Breath Or Wheezing aspirin 81 mg tablet,delayed 81 mg PO DAILY HEART HEALTH 12/03/18 04/01/24 release cetirizine 10 mg tablet (Zyrtec) 10 mg PO DAILY Allergy symptoms 12/03/18 04/01/24 clopidogrel 75 mg tablet 75 mg PO DAILY Blood thinner 12/03/18 04/01/24 empagliflozin 25 mg-linagliptin 5 1 ea PO DAILY DM 12/03/18 04/01/24 mg tablet (Glyxambi) metformin 1,000 mg tablet 1,000 mg PO BID DM 12/03/18 04/01/24 atorvastatin 20 mg tablet 20 mg PO DAILY 12/16/23 04/01/24 metoprolol succinate 25 mg 25 mg PO DAILY 12/16/23 04/01/24 tablet,extended release 24 hr omeprazole 20 mg capsule,delayed 20 mg PO DAILY 12/16/23 04/01/24 release triamcinolone acetonide 0.1 % 1 applic topical DIRECTED Skin 12/16/23 04/01/24 topical cream Condition Previous Rx's ?Medication ?Instructions ?Recorded lidocaine 5 % topical patch 3 patch topical DAILY PRN pain #90 12/16/23 ea lisinopril 10 mg tablet 10 mg PO DAILY HTN 90 days #90 tabs 12/16/23 alprazolam 0.25 mg tablet 0.25 mg PO DAILY PRN anxiety #10 01/06/24 tabs celecoxib 200 mg capsule 200 mg PO BID 90 days #180 caps 01/10/24 methocarbamol 500 mg tablet 500 mg PO QID PRN muscle spasm 01/21/24 #120 tabs buspirone 5 mg tablet 5 mg PO BID 90 days #180 tabs 03/18/24 escitalopram oxalate 20 mg tablet 20 mg PO DAILY #30 tabs 03/18/24 Allergies Allergy/AdvReac Type Severity Reaction Status Date / Time diphenhydramine Allergy Unknown AGITATION Verified 04/01/24 13:09 [From BENADRYL] mirtazapine [From REMERON] Allergy Unknown Verified 04/01/24 13:09 [facility] Disclaimer: The information contained in this section may have been updated after the patient was seen, as this information can be updated by other users. Medical History Bowel incontinence Increased bowel frequency Bowel obstruction Depression Anxiety Hypertension Bulging disc Type 2 diabetes mellitus without complications CAD (coronary artery disease) Asperger syndrome Surgical History History of right heart catheterization History of tonsillectomy and adenoidectomy H/O hernia repair Family History Family/Other Coronary artery disease Heart attack Cancer neck Epilepsy Autism Diabetes Stroke Social History Smoking Status: Unknown if ever smoked alcohol intake: never current occupational status: other Travel in the last 8 weeks: None current occupational exposures/hazards: No caffeine: Yes ROS Obtained: Yes All systems reviewed & no additional complaints except as documented Physical Exam General General appearance: alert and in no apparent distress Head Head exam: atraumatic and normocephalic Eye Eye exam: Present normal appearance, PERRL and EOMI ENT ENT exam: Present normal oropharynx and normal external ear exam Neck Neck exam: Present normal inspection and full ROM Chest Chest inspection: Present normal inspection and symmetric chest wall rise; Absent tenderness Respiratory Respiratory exam: Present normal lung sounds bilaterally; Absent respiratory distress Cardiovascular Cardiovascular exam: Present regular rate and normal rhythm Abdominal Exam Abdominal exam: Present soft; Absent distention, tenderness or guarding Extremities Exam Extremities exam: Present normal inspection; Absent edema or joint swelling Back Exam Back exam: Present normal inspection; Absent tenderness Neurological Exam Neurological exam: Present alert and oriented X3; Absent motor sensory deficit Psychiatric Psychiatric exam: Present normal affect and normal mood Skin Skin exam: Present warm, dry, normal color and erythema (Diffuse confluent erythema over the bilateral upper arms, upper chest and back) Lymphatic Lymphatic Findings: no adenopathy Medical Decision Making Medical Records Medical records reviewed: Yes I reviewed the patient's medical records. Nabil Inquiry Pt receiving controlled substance: No Nabil was queried for this patient: No Vital Signs: 04/17/24 00:42 04/17/24 01:51 Temperature 97.2 F L 97.8 F Temperature Source Oral Oral Pulse Rate 84 Pulse Rate [Right Brachial] 72 Respiratory Rate 16 18 Blood Pressure 140/76 Blood Pressure [Right Arm] 143/72 H Blood Pressure Mean [Right Arm] 95 Blood Pressure Source Automatic Cuff Blood Pressure Source [Right Arm] Automatic Cuff Blood Pressure Position Sitting Blood Pressure Position [Right Arm] Sitting 02 Sat by Pulse Oximetry 98 Oxygen Delivery Method Room Air Room Air Lab Data Lab results reviewed: Yes I reviewed the patient's lab results. Lab Results 04/17/24 00:47: WBC 7.3, RBC 5.24, Hgb 15.9, Hct 49.0, MCV 93.6, MCH 30.4, MCHC 32.5, RDW 13.4, Plt Count 208, MPV 8.8, Neut % (Auto) 67.6, Lymph % (Auto) 24.1, Fountain % (Auto) 7.5, Eos % (Auto) 0.5, Baso % (Auto) 0.4, Neut # (Auto) 5.0, Lymph # (Auto) 1.8, Fountain # (Auto) 0.6, Eos # (Auto) 0.0, Baso # (Auto) 0.0, D-Dimer < 0.25, Sodium 138, Potassium 4.0, Chloride 107, Carbon Dioxide 24, Anion Gap 11.0, BUN 18, Creatinine 0.70, Estimated Creat Clear 167, Estimated GFR 118, Est GFR ( Amer) 143, Glucose 241 H, Calcium 8.9, Total Bilirubin 0.9, AST 38, ALT 46, Alkaline Phosphatase 129 H, Troponin I < 0.01, Total Protein 6.6, Albumin 4.0, Globulin 2.6, Albumin/Globulin Ratio 1.5 04/17/24 00:47 04/17/24 00:47 Orders (Tests/Meds): ORDERS Category Date Time Status CXR --portable [XR chest portable] Stat Exams 04/17/24 01:00 Completed CBC w/Auto Diff [Complete Blood Count Auto Diff] Stat Lab 04/17/24 00:47 Completed CMP [Comprehensive Metabolic Panel] Stat Lab 04/17/24 00:47 Completed D-Dimer Stat Lab 04/17/24 00:47 Completed Trop I [Troponin I] Stat Lab 04/17/24 00:47 Completed HEART Score History (anamnesis): Slightly suspicious ECG: Normal Age: 45-65 years Risk factors: 1-2 risk factors Troponin: </= normal limit HEART Score: 2 Medical Decision Narrative: 54-year-old male with history of arthritis, hypertension presents for development of skin redness pain as well as some chest tightness.. History was obtained via interactive discussion with patient. On arrival, patient is [afebrile, hemodynamically stable, satting appropriately, alert, oriented x4, GCS 15], moving all extremities spontaneously. Full physical exam performed and significant for diffuse confluent erythema of the bilateral upper arms, upper chest and back. No discrete lesions noted. Normal oropharyngeal exam. Differential includes but is not limited to allergic reaction, atopic dermatitis, contact dermatitis, anaphylaxis, autoimmune condition, lindsey, anxiety, ACS, PE. Workup initiated including CBC CMP chest x-ray EKG troponin D-dimer.. On re-evaluation, patient [remains afebrile, HD stable.] No worsening of the skin symptoms. No, no other signs or symptoms of anaphylaxis. Laboratory workup independently interpreted by me and significant for negative initial troponin, negative D-dimer, unremarkable CBC CMP.. Imaging independently interpreted by me and significant for chest x-ray without focal opacity. See radiology read for full review of final results. EKG independently interpreted by me and significant for sinus rhythm, rate of 77, no concerning ST changes. Repeat troponin was considered, but patient did not want to wait for second troponin, and I have relatively low concern for cardiac pathology at this time. Given patient history, exam and workup, the underlying etiology of the patient's skin redness and pain remains unclear. Does not appear to be infectious, is not consistent with anaphylaxis or other emergent reaction. Recommended patient follow-up with PCP for further assessment or return if symptoms worsen or do not improve. Procedures Risk/Benefits of Procedure(s) Were Explained: Yes Critical Care Critical Care Time Critical Care Time: No
--- NOTE | 2024-04-17 01:00 | XR_ITS ---
PROCEDURE INFORMATION: Exam: XR Chest Exam date and time: 04/17/2024 1:11 AM Age: 54 years old Clinical indication: Shortness of breath; Additional info: SOA TECHNIQUE: Imaging protocol: Radiologic exam of the chest. Views: 1 view. COMPARISON: CR XR CHEST PORTABLE 01/15/2024 2:10 PM FINDINGS: Lungs: No evidence of acute pulmonary disease or infiltrates Pleural spaces: No large effusion or pneumothorax. Heart/Mediastinum: Stable cardiac and mediastinal contours. Bones/joints: No evidence of acute osseous abnormalities within the visualized portions of the thoracic spine and ribs. Osseous structures appear appropriate for patient age. IMPRESSION: No dense parenchymal consolidation, pleural effusion, or pneumothorax.
[2024-04-17 01:10] LABS: Basophils % 0.4 % (0.1-2.0); Eosinophils % 0.5 % (0.1-12.0); Hemoglobin 15.9 g/dL (14.1-18.0); Lymphocytes # 1.8 K/mm3 (0.7-4.5); Lymphocytes % 24.1 % (10-50); Mean Corpuscular HGB Conc 32.5 g/dL (31.8-35.4); Mean Corpuscular Hemoglobin 30.4 pg (27.0-31.2); Mean Corpuscular Volume 93.6 fl (80-94); Mean Platelet Volume 8.8 fl (7.4-10.4); Monocytes # 0.6 K/mm3 (0.1-1.0); Monocytes % 7.5 % (1.7-9.3); Neutrophils % 67.6 % (37.0-80.0); Platelet Count 208 K/mm3 (142-424); Red Blood Count 5.24 M/mm3 (4.60-6.20); Red Cell Distribution Width 13.4 % (11.5-17.5); White Blood Count 7.3 K/mm3 (4.8-10.8)
[2024-04-17 01:15] LABS: Alanine Aminotransferase 46 U/L (12-78); Albumin/Globulin Ratio 1.5 (1.1-1.8); Alkaline Phosphatase 129 U/L (38-126); Aspartate Amino Transferase 38 U/L (17-59); Bilirubin,Total 0.9 mg/dl (0.2-1.3); Blood Urea Nitrogen 18 mg/dl (9-20); Calcium 8.9 mg/dl (8.4-10.2); Carbon Dioxide 24 mmol/L (22.0-30.0); Chloride 107 mmol/L (98-107); Creatinine Clearance Estimated 167 mL/min (50-200); Estimated Glomerular Filt Rate 118 ml/min (>60); GFR (African American) 143 ML/MIN (>60); Globulin 2.6 g/dL (1.3-3.2); Glucose 241 mg/dl (74-100); Sodium 138 mmol/L (136-145); Total Protein,Serum 6.6 g/dl (6.3-8.2)
[2024-04-17 01:20] LABS: D-Dimer < 0.25 ug/mL (0.0-0.5)
[2024-04-17 01:29] LABS: Troponin I < 0.01 ng/ml (0.00-0.034)
[2024-04-17 01:51] VITALS: BP 140/76; PULSE 84; RESP 18; TEMP 36.6; O2SAT 96
== END 2024-04-17 01:51 | disposition home or self-care (01) ==
PROVIDERS: Emergency Provider Emergency Medicine; PCP Nurse Practitioner Family
DX: L98.9 Disorder of the skin and subcutaneous tissue, unspecified (principal); I10 Essential (primary) hypertension; L53.9 Erythematous condition, unspecified
CPT/HCPCS: 71045; 80053; 84484; 85025; 85378; 93005; 99284

== ENCOUNTER 2024-04-30 14:05 | Emergency (ER) | payer MEDICARE, SELFPAY ==
[2024-04-30] VITALS (7 sets, daily range): BP systolic 101–133; BP diastolic 67–91; PULSE 65–75; RESP 15–20; TEMP 36.8; O2SAT 94–99; BMI 33.0
--- NOTE | 2024-04-30 14:16 | CT_ITS ---
FINAL REPORT TECHNIQUE: Postcontrast axial images through the abdomen and pelvis were performed. This study was performed with techniques to keep radiation doses as low as reasonably achievable, (ALARA). Individualized dose reduction techniques using automated exposure control or adjustment of mA and/or kV according to the patient's size were employed. CLINICAL HISTORY: abd pain hisotry of obstruction FINDINGS: Abdomen: The lung bases are clear. The liver is normal in size and attenuation. The spleen is unremarkable. The adrenals are normal. The pancreas is unremarkable. Small right renal cyst measuring 17 mm is identified. No follow-up is recommended. The aorta is normal in caliber. No free fluid or adenopathy is identified. No findings for mechanical bowel obstruction are identified. Pelvis: The appendix is normal. There is a small umbilical hernia containing fat. There are also inguinal hernias containing fat. The urinary bladder is unremarkable. No free fluid, free air, abscess or adenopathy is identified. IMPRESSION: No evidence of bowel obstruction. Umbilical and inguinal hernias as detailed above. Reviewed, Interpreted and Dictated by Daron Colón III, MD Transcribed by Vandana Oro Authenticated and [facility]
[2024-04-30] MEDS: ONDANSETRON 4MG/2ML VIAL 4 MG IV (14:27)
[2024-04-30] MEDS: ACETAMINOPHEN 1,000MG/100ML VIAL 1000 MG IV (14:27)
[2024-04-30] MEDS: KETOROLAC 30MG/ML VIAL 15 MG IV (14:27)
[2024-04-30 14:32] LABS: Basophils # 0.1 K/mm3 (0-0.2); Eosinophils # 0.1 K/mm3 (0.0-0.4); Eosinophils % 1.2 % (0.1-12.0); Hematocrit 49.7 % (42.0-52.0); Hemoglobin 16.1 g/dL (14.1-18.0); Lymphocytes # 2.9 K/mm3 (0.7-4.5); Lymphocytes % 37.6 % (10-50); Mean Corpuscular HGB Conc 32.5 g/dL (31.8-35.4); Mean Corpuscular Hemoglobin 30.5 pg (27.0-31.2); Mean Corpuscular Volume 93.8 fl (80-94); Mean Platelet Volume 8.8 fl (7.4-10.4); Monocytes # 0.5 K/mm3 (0.1-1.0); Monocytes % 6.6 % (1.7-9.3); Neutrophils # 4.1 K/mm3 (1.8-7.8); Neutrophils % 53.7 % (37.0-80.0); Platelet Count 187 K/mm3 (142-424); Red Blood Count 5.29 M/mm3 (4.60-6.20); Red Cell Distribution Width 13.5 % (11.5-17.5); White Blood Count 7.7 K/mm3 (4.8-10.8)
--- NOTE | 2024-04-30 14:38 | PC.NURSE ---
20G saline lock established in the right AC and labs drawn with no complications. Reported to SANTOSH May
[2024-04-30 14:53] LABS: Albumin Level 4.1 g/dl (3.5-5.0); Chloride 105 mmol/L (98-107); Sodium 138 mmol/L (136-145)
[2024-04-30 14:56] LABS: Alanine Aminotransferase 38 U/L (12-78); Albumin/Globulin Ratio 1.7 (1.1-1.8); Alkaline Phosphatase 109 U/L (38-126); Aspartate Amino Transferase 29 U/L (17-59); Blood Urea Nitrogen 15 mg/dl (9-20); Calcium 8.5 mg/dl (8.4-10.2); Carbon Dioxide 30 mmol/L (22.0-30.0); Creatinine Clearance Estimated 182 mL/min (50-200); Estimated Glomerular Filt Rate 118 ml/min (>60); GFR (African American) 143 ML/MIN (>60); Globulin 2.4 g/dL (1.3-3.2); Glucose 130 mg/dl (74-100); Lactic Acid 1.2 mmol/L (0.7-2.1); Lipase 227 U/L (23-300); Total Protein,Serum 6.5 g/dl (6.3-8.2)
[2024-04-30] MEDS: IOPAMIDOL-370 (76%);100ML BOTTLE 75 ML IV (15:10)
[2024-04-30] MEDS: SODIUM CHLORIDE 0.9% 10ML SYR (RAD ONLY) 10 ML IV (15:11)
--- NOTE | 2024-04-30 15:17 | PC.NURSE ---
Dr. Powell at [facility] for pt eval
[2024-04-30] MEDS: LACTATED RINGERS 1000ML 1,000 ML 999 ML IV (15:29)
--- NOTE | 2024-04-30 15:34 | ED_ITS ---
Discharge Plan Disposition Patient Disposition: Home, Self-Care Condition: Good Prescriptions Prescriptions: New polyethylene glycol 3350 [Miralax] 17 gram/dose powder 17 g PO DAILY PRN (Reason: constipation) 7 Days Qty: 119 0RF senna 8.6 mg capsule 8.6 mg PO DAILY 4 Days Qty: 4 0RF ondansetron 4 mg tablet,disintegrating 4 mg PO Q6H PRN (Reason: nausea and vomiting) 4 Days Qty: 16 0RF No Action metoprolol succinate 25 mg tablet extended release 24 hr 25 mg PO DAILY atorvastatin 20 mg tablet 20 mg PO DAILY omeprazole 20 mg capsule,delayed release(DR/EC) 20 mg PO DAILY triamcinolone acetonide 0.1 % cream 1 applic topical DIRECTED Patient Comments: APPLY TOPICALLY TO THE AFFECTED AREA(S) TWICE DAILY TO RASH NEEDED. USE FOR three WEEKS AND take 1 WEEK break. REPEAT. AVOID USE ON underarms, groin, AND face. lisinopril 10 mg tablet 10 mg PO DAILY 90 Days Qty: 90 2RF lidocaine 5 % adhesive patch,medicated 3 patch topical DAILY PRN (Reason: pain) Qty: 90 0RF Rx Instructions: up to 3 patches, leave on most painful area for up to 12 hrs escitalopram oxalate 20 mg tablet 20 mg PO DAILY Qty: 30 2RF buspirone 5 mg tablet 5 mg PO BID 90 Days Qty: 180 1RF alprazolam 0.25 mg tablet 0.25 mg PO DAILY PRN (Reason: anxiety) Qty: 10 0RF methocarbamol 500 mg tablet 500 mg PO QID PRN (Reason: muscle spasm) Qty: 120 0RF celecoxib 200 mg capsule 200 mg PO BID 90 Days Qty: 180 1RF clopidogrel 75 MG tablet 75 mg PO DAILY metformin 1,000 MG tablet 1,000 mg PO BID albuterol sulfate [Ventolin HFA] 18 GM HFA aerosol inhaler 1 - 2 puffs inhalation Q4-6H PRN (Reason: Shortness Of Breath Or Wheezing) Glyxambi 1 EACH tablet 1 ea PO DAILY cetirizine [Zyrtec] 10 MG tablet 10 mg PO DAILY aspirin 81 MG tablet,delayed release (DR/EC) 81 mg PO DAILY Referrals Follow up/Referrals: Hannah Turner APRN [Primary Care Provider] - See instructions Activity Restrictions/Add. Instructions Additional Instructions/Restrictions: You have been evaluated in the ED for your complaints. You may follow-up with your PCP in the next 3 to 5 days. Please return to ED for any new or worsening symptoms. Please take MiraLAX to assist with your constipation. I have also written for senna to further assist. You may also use an enema if needed Clinical Impressions Clinical Impression: Abdominal pain, Constipation Instructions Patient Instructions: DI for Acute Abdominal Pain Print Language Print Language: Spanish Discharge ED Provider: Sang Velarde General Adult HPI General Chief complaint: Abdominal Pain Stated complaint: abd pain, belching Time Seen by Provider: 04/30/24 14:15 Mode of Arrival: Ambulatory Source of Information: Patient Limitations: No Limitations Description of Symptoms (Recalled from ER Triage Doc. by RN): belly pain, belching,upset stomach History of Present Illness HPI narrative: 54-year-old male with past medical history significant for bowel obstruction, depression, DM 2, CAD, aspect syndrome, anxiety, presents today for evaluation concerning abdominal pain, belching and small stools. Patient states that he has been unable to tolerate much solids or liquids secondary to his symptoms and his belching. He states that his last bowel movement was about 6 hours ago and was small in characterization. He states that he has been going between diarrhea and small stools over the past few days. Denies have any chest pain, shortness of breath, nausea, vomiting, fevers, chills, dysuria, hematuria or any other associated symptoms at this time Related Data Home Medications ?Medication ?Instructions ?Recorded ?Confirmed albuterol sulfate 90 mcg/actuation 1 - 2 puffs inhalation Q4-6H PRN 12/03/18 04/01/24 aerosol inhaler (Ventolin HFA) Shortness Of Breath Or Wheezing aspirin 81 mg tablet,delayed 81 mg PO DAILY HEART HEALTH 12/03/18 04/01/24 release cetirizine 10 mg tablet (Zyrtec) 10 mg PO DAILY Allergy symptoms 12/03/18 04/01/24 clopidogrel 75 mg tablet 75 mg PO DAILY Blood thinner 12/03/18 04/01/24 empagliflozin 25 mg-linagliptin 5 1 ea PO DAILY DM 12/03/18 04/01/24 mg tablet (Glyxambi) metformin 1,000 mg tablet 1,000 mg PO BID DM 12/03/18 04/01/24 atorvastatin 20 mg tablet 20 mg PO DAILY 12/16/23 04/01/24 metoprolol succinate 25 mg 25 mg PO DAILY 12/16/23 04/01/24 tablet,extended release 24 hr omeprazole 20 mg capsule,delayed 20 mg PO DAILY 12/16/23 04/01/24 release triamcinolone acetonide 0.1 % 1 applic topical DIRECTED Skin 12/16/23 04/01/24 topical cream Condition Previous Rx's ?Medication ?Instructions ?Recorded lidocaine 5 % topical patch 3 patch topical DAILY PRN pain #90 12/16/23 ea lisinopril 10 mg tablet 10 mg PO DAILY HTN 90 days #90 tabs 12/16/23 alprazolam 0.25 mg tablet 0.25 mg PO DAILY PRN anxiety #10 01/06/24 tabs celecoxib 200 mg capsule 200 mg PO BID 90 days #180 caps 01/10/24 methocarbamol 500 mg tablet 500 mg PO QID PRN muscle spasm 01/21/24 #120 tabs buspirone 5 mg tablet 5 mg PO BID 90 days #180 tabs 03/18/24 escitalopram oxalate 20 mg tablet 20 mg PO DAILY #30 tabs 03/18/24 ondansetron 4 mg disintegrating 4 mg PO Q6H PRN nausea and 04/30/24 tablet vomiting 4 days #16 tabs polyethylene glycol 3350 17 17 g PO DAILY PRN constipation 7 04/30/24 gram/dose oral powder (Miralax) days #119 grams sennosides 8.6 mg capsule (senna) 8.6 mg PO DAILY 4 days #4 caps 04/30/24 Allergies Allergy/AdvReac Type Severity Reaction Status Date / Time diphenhydramine Allergy Unknown AGITATION Verified 04/01/24 13:09 [From BENADRYL] mirtazapine [From REMERON] Allergy Unknown Verified 04/01/24 13:09 [facility] Disclaimer: The information contained in this section may have been updated after the patient was seen, as this information can be updated by other users. Medical History Bowel incontinence Increased bowel frequency Bowel obstruction Depression Anxiety Hypertension Bulging disc Type 2 diabetes mellitus without complications CAD (coronary artery disease) Asperger syndrome Surgical History History of right heart catheterization History of tonsillectomy and adenoidectomy H/O hernia repair Family History Family/Other Coronary artery disease Heart attack Cancer neck Epilepsy Autism Diabetes Stroke Social History Smoking Status: Never smoker alcohol intake: never current occupational status: other Travel in the last 8 weeks: None current occupational exposures/hazards: No caffeine: Yes ROS Obtained: Yes All systems reviewed & no additional complaints except as documented Physical Exam General General appearance: alert and in no apparent distress Head Head exam: atraumatic and normocephalic Eye Eye exam: Present normal appearance, PERRL and EOMI ENT ENT exam: Present normal oropharynx and mucous membranes moist Neck Neck exam: Present full ROM; Absent meningismus Respiratory Respiratory exam: Absent respiratory distress, wheezes, stridor or accessory muscle use Cardiovascular Cardiovascular exam: Present normal rhythm Abdominal Exam Abdominal exam: Present soft; Absent distention, tenderness, guarding, rebound or rigidity Abdominal tenderness: Present RLQ and epigastrium Neurological Exam Neurological exam: Present alert, oriented X3 and CN II-XII intact; Absent motor sensory deficit Psychiatric Psychiatric exam: Present normal affect and normal mood Skin Skin exam: Present warm and dry Medical Decision Making Medical Records Medical records reviewed: Yes I reviewed the patient's medical records. Nabil Inquiry Pt receiving controlled substance: No Nabil was queried for this patient: No Vital Signs: 04/30/24 14:06 04/30/24 14:32 04/30/24 15:01 Temperature 98.2 F Temperature Source Oral Pulse Rate 70 67 Pulse Rate [Right] 65 Respiratory Rate 20 Blood Pressure 116/71 101/67 L Blood Pressure [Right Arm] 133/91 H Blood Pressure Mean Blood Pressure Mean [Right Arm] 105 02 Sat by Pulse Oximetry 97 96 95 Oxygen Delivery Method Room Air Room Air Room Air 04/30/24 15:06 04/30/24 16:00 04/30/24 16:30 Temperature Temperature Source Pulse Rate 65 75 72 Pulse Rate [Right] Respiratory Rate Blood Pressure 125/86 131/89 127/81 Blood Pressure [Right Arm] Blood Pressure Mean 98 91 Blood Pressure Mean [Right Arm] 02 Sat by Pulse Oximetry 94 L 97 98 Oxygen Delivery Method Room Air Room Air Room Air Lab Data Lab Results 04/30/24 14:25: WBC 7.7, RBC 5.29, Hgb 16.1, Hct 49.7, MCV 93.8, MCH 30.5, MCHC 32.5, RDW 13.5, Plt Count 187, MPV 8.8, Neut % (Auto) 53.7, Lymph % (Auto) 37.6, [place] % (Auto) 6.6, Eos % (Auto) 1.2, Baso % (Auto) 1.0, Neut # (Auto) 4.1, Lymph # (Auto) 2.9, [place] # (Auto) 0.5, Eos # (Auto) 0.1, Baso # (Auto) 0.1, Sodium 138, Potassium 4.0, Chloride 105, Carbon Dioxide 30, Anion Gap 7.0, BUN 15, Creatinine 0.70, Estimated Creat Clear 182, Estimated GFR 118, Est GFR ( Amer) 143, Glucose 130 H, Lactate 1.2, Calcium 8.5, Total Bilirubin 1.0, AST 29, ALT 38, Alkaline Phosphatase 109, Total Protein 6.5, Albumin 4.1, Globulin 2.4, Albumin/Globulin Ratio 1.7, Lipase 227 04/30/24 14:25 04/30/24 14:25 Orders (Tests/Meds): ED MEDICATIONS Generic Name Dose Route Start Last Admin Trade Name Freq PRN Reason Stop Dose Admin Belladonna Alkaloids 60 ml 04/30/24 17:10 04/30/24 17:12 Belladonna Alkaloids 60 Ml Ml PO 04/30/24 17:11 60 ml ONCE ONE Administration Sodium Chloride 10 ml 04/30/24 15:09 04/30/24 15:11 Sodium Chloride 0.9% 10ml Syr (Rad Only) IV 05/30/24 15:08 10 ml NEEDED PRN Administration Maintain IV Site Discontinued Medications Generic Name Dose Route Start Last Admin Trade Name Freq PRN Reason Stop Dose Admin Acetaminophen 1,000 mg 04/30/24 14:15 04/30/24 14:27 Acetaminophen 1,000mg/100ml Vial IV 04/30/24 14:16 1,000 mg ONCE ONE Administration Lactated Ringer's 1,000 mls @ 999 mls/hr 04/30/24 15:18 04/30/24 15:29 Lactated Ringer's 1000 Ml Bag IV 04/30/24 16:18 999 mls/hr .Q1H1M ONE Administration Iopamidol 75 ml 04/30/24 15:09 04/30/24 15:10 Iopamidol-370 (76%);100ml Bottle IV 04/30/24 15:10 75 ml ONCE ONE Administration Ketorolac Tromethamine 15 mg 04/30/24 14:15 04/30/24 14:27 Ketorolac 30mg/Ml Vial IV 04/30/24 14:16 15 mg ONCE ONE Administration Ondansetron HCl 4 mg 04/30/24 14:15 04/30/24 14:27 Ondansetron 4mg/2ml Vial IV 04/30/24 14:16 4 mg ONCE ONE Administration ORDERS Category Date Time Status CT abdomen pelvis w con Stat Cat Scan 04/30/24 14:16 Completed CBC w/Auto Diff [Complete Blood Count Auto Diff] Stat Lab 04/30/24 14:25 Completed CMP [Comprehensive Metabolic Panel] Stat Lab 04/30/24 14:25 Completed Lactic Acid Stat Lab 04/30/24 14:25 Completed Lipase Stat Lab 04/30/24 14:25 Completed Medical Decision Narrative: 54-year-old male with past medical history significant for bowel obstruction, depression, DM 2, CAD, aspect syndrome, anxiety, presents today for evaluation concerning abdominal pain, belching and small stools. Patient states that he has been unable to tolerate much solids or liquids secondary to his symptoms and his belching. He states that his last bowel movement was about 6 hours ago and was small in characterization. He states that he has been going between diarrhea and small stools over the past few days. On assessment he was hemodynamically stable and in no acute distress. Afebrile. His chest was clear to auscultation bilaterally. His abdomen was soft nondistended and was tender in the epigastrium and right lower quadrant. No rebound or guarding. Other physical exam findings were unremarkable. Differential diagnoses include not limited to bowel obstruction, constipation, gastritis, gastroenteritis, appendicitis, among others Patient's level today does not show an elevation in WBC at 7.7. CMP is nonactionable. Lipase within range at 227. CT scan on my informal interpretation does not show any signs of obstruction however there is a large amount of stool in the colon. Radiology report confirms no evidence of bowel obstruction. On reassessment the patient remains hemodynamically stable and in no acute distress. Discussed with patient ED work-up and results and current plan to discharge. He has been able to tolerate oral intake while in the ED. Will send home with MiraLAX and Dulcolax to assist with patient's constipation provided with return to ED precautions and instructions concerning PCP follow-up. Patient verbalized understanding and agreement with plan. Subsequently discharged hemodynamically stable and in no acute distress. Critical Care Critical Care Time Critical Care Time: No
[2024-04-30] MEDS: BELLADONNA ALKALOIDS 60 ML ML PO (17:12)
== END 2024-04-30 17:43 | disposition home or self-care (01) ==
PROVIDERS: Emergency Provider Emergency Medicine; PCP Nurse Practitioner Family
DX: R10.9 Unspecified abdominal pain (principal); K59.00 Constipation, unspecified; E11.9 Type 2 diabetes mellitus without complications; I25.10 Atherosclerotic heart disease of native coronary artery without angina pectoris; I10 Essential (primary) hypertension
CPT/HCPCS: 74177; 80053; 83605; 83690; 85025; 96361; 96374; 96375; 99285; J0131; J1885; J2405; J7120; Q9967

== ENCOUNTER 2024-05-04 11:24 | Outpatient (CLI) | payer MEDICARE, MEDICAID, SELFPAY ==
[2024-05-04 17:51] LABS: Hemoglobin A1C 7.5 % (4.0-6.0)
[2024-05-04 22:06] LABS: Chloride 106 mmol/L (98-107); Potassium 4.3 mmoL/L (3.5-5.1); Sodium 139 mmol/L (136-145)
[2024-05-04 22:08] LABS: Blood Urea Nitrogen 17 mg/dl (9-20); Estimated Glomerular Filt Rate 141 ml/min (>60); GFR (African American) 171 ML/MIN (>60)
[2024-05-04 22:09] LABS: Alanine Aminotransferase 45 U/L (12-78); Albumin/Globulin Ratio 1.6 (1.1-1.8); Alkaline Phosphatase 102 U/L (38-126); Anion Gap 11.3 mEq/L (5-15); Aspartate Amino Transferase 31 U/L (17-59); Bilirubin,Total 0.9 mg/dl (0.2-1.3); Calcium 8.8 mg/dl (8.4-10.2); Carbon Dioxide 26 mmol/L (22.0-30.0); Globulin 2.5 g/dL (1.3-3.2); Glucose 146 mg/dl (74-100); Total Protein,Serum 6.5 g/dl (6.3-8.2)
[2024-05-05 18:35] LABS: Creatinine,Urine Random 77 mg/dL (Not Estab.); Microalbumin < 6.000 mg/L (0-16.7)
== END 2024-05-04 23:59 | disposition home or self-care (01) ==
LOC: LAB.DROPOF 05-05 11:25
PROVIDERS: PCP Nurse Practitioner Family; Visit Provider Nurse Practitioner Family
DX: E11.9 Type 2 diabetes mellitus without complications (principal); Z79.84 Long term (current) use of oral hypoglycemic drugs
CPT/HCPCS: 80053; 82043; 82570; 83036

== ENCOUNTER 2024-05-05 11:26 | Day surgery (SDC) | payer MEDICARE, SELFPAY ==
[2024-05-05 12:14] VITALS: BP 139/85; PULSE 75; RESP 16; O2SAT 96; BMI 29.4
[2024-05-05 12:45] VITALS: BP 140/88; PULSE 66; RESP 16; O2SAT 96
[2024-05-05] MEDS: LIDOCAINE 1% 5ML PF VIAL 5 ML (13:09)
--- NOTE | 2024-05-26 08:14 | EXP.PAIN.PRO ---
Procedure Date: 05/26/24 Time: 09:30 Anesthesiologist:: Antony Hyman CRNA Complications:: None Pre-procedure Diagnosis:: Degenerative disc lumbar spine multilevels. Lumbar radiculopathy. Lumbar disc bulge L4-5, L5-S1. Post-procedure Diagnosis:: Same. Indications for Procedure:: Patient is a very pleasant 54-year-old male who comes our clinic today for transforaminal epidural steroid injection at the left L4-5 and L5-S1 level. Patient describes low lumbar back pain left greater than right. Left buttock pain. Left leg radicular symptoms posteriorly to the foot. He rates his pain 7/10. Procedure Details:: Details of the procedure explained to the patient. The patient was taken to procedure room placed in the prone position. The area over the lumbar spine was cleansed using chlorhexidine as a cleansing solution. Using fluoroscopy guidance markers were placed over the left border of the L4-5 and L5-S1 vertebral body. At each marker the skin and subcutaneous tissue was anesthetized using 1% lidocaine and a 25-gauge needle. At this time using fluoroscopy guidance 3 and half inch 22-gauge spinal needle was used to access the upper one third of the left L4-5 and L5-S1 foramen. Using fluoroscopy guidance in the lateral position needle position was confirmed using 0.5 mL of contrast dye. Good spread was noted in the epidural space at each level. After negative aspiration 2 mL of 1% lidocaine and 40 mg of Depo-Medrol was injected at each level. Patient tolerated procedure without difficulty. There are no complications. Plan and Disposition:: Patient was discharged without incident.
== END 2024-05-05 12:45 | disposition home or self-care (01) ==
LOC: SC.PAINP 11:27
PROVIDERS: PCP Nurse Practitioner Family; Visit Provider Nurse Anesthetist, Certified Registered
DX: M51.16 Intervertebral disc disorders with radiculopathy, lumbar region (principal)
CPT/HCPCS: 64483; 64484; J1010

== ENCOUNTER → 2024-05-08 12:27 | Outpatient (CLI) | payer MEDICARE, SELFPAY | PROVIDERS: PCP Nurse Practitioner Family; Visit Provider Nurse Practitioner Family | DX: G47.33 Obstructive sleep apnea (adult) (pediatric) (principal); G47.36 Sleep related hypoventilation in conditions classified elsewhere | CPT/HCPCS: G0399 ==

== ENCOUNTER 2024-05-18 08:26 | Outpatient (CLI) | payer MEDICARE, MEDICAID, SELFPAY ==
--- NOTE | 2024-05-18 08:27 | US_ITS ---
FINAL REPORT TECHNIQUE: Multiple transverse and longitudinal images CLINICAL HISTORY: RUQ abd pain, nausea COMPARISON: None FINDINGS: The gallbladder shows no wall thickening, distention or stone disease. No biliary ductal dilatation is appreciated. No fluid collections are seen. Limited portions of the right liver demonstrate fatty infiltration. Limited portions of the right kidney are unremarkable. IMPRESSION: Fatty liver without evidence of gallbladder disease. Reviewed, Interpreted and Dictated by Linnette Dockery MD Transcribed by Heydi Shukla Authenticated and [facility]
== END 2024-05-18 23:59 | disposition home or self-care (01) ==
LOC: RAD 08:27
PROVIDERS: PCP Nurse Practitioner Family; Visit Provider Nurse Practitioner Family
DX: R11.0 Nausea (principal); R10.11 Right upper quadrant pain
CPT/HCPCS: 76705

== ENCOUNTER 2024-06-29 12:51 | Outpatient (CLI) | payer MEDICARE, MEDICAID, SELFPAY | END 2024-06-29 23:59 | disposition home or self-care (01) | LOC: RT 12:52 | PROVIDERS: PCP Nurse Practitioner Family; Visit Provider Nurse Practitioner Family | DX: R06.02 Shortness of breath (principal); G47.34 Idiopathic sleep related nonobstructive alveolar hypoventilation | CPT/HCPCS: 94762 ==

== ENCOUNTER 2024-07-07 14:21 | Outpatient (CLI) | payer MEDICARE, MEDICAID, SELFPAY ==
[2024-07-07 14:55] VITALS: BMI 30.1
--- NOTE | 2024-07-07 14:55 | ECG_ITS ---
APPROVED REPORT Exam: Resting ECG HR:88 bpm ECG Measurements Heart Rate 88 AXES MT 181 P 31 QRSd 87 QRS 4 QT 341 T 16 QTc 387 Conclusion SINUS RHYTHM Late r wave progression Borderline LAD ABNORMAL ECG UNCONFIRMED REPORT Electronically signed by : Cayetano Spence MD 07/07/2024 16:59:39
[2024-07-07 15:02] LABS: Basophils % 0.8 % (0.1-2.0); Eosinophils # 0.1 K/mm3 (0.0-0.4); Eosinophils % 1.1 % (0.1-12.0); Hematocrit 48.3 % (42.0-52.0); Hemoglobin 16.9 g/dL (14.1-18.0); Lymphocytes # 1.5 K/mm3 (0.7-4.5); Lymphocytes % 30.8 % (10-50); Mean Corpuscular HGB Conc 35.1 g/dL (31.8-35.4); Mean Corpuscular Hemoglobin 31.8 pg (27.0-31.2); Mean Corpuscular Volume 90.5 fl (80-94); Mean Platelet Volume 8.3 fl (7.4-10.4); Monocytes # 0.4 K/mm3 (0.1-1.0); Monocytes % 8.1 % (1.7-9.3); Neutrophils # 2.8 K/mm3 (1.8-7.8); Neutrophils % 59.2 % (37.0-80.0); Platelet Count 200 K/mm3 (142-424); Red Blood Count 5.34 M/mm3 (4.60-6.20); Red Cell Distribution Width 13.9 % (11.5-17.5); White Blood Count 4.8 K/mm3 (4.8-10.8)
[2024-07-07 15:11] LABS: Anion Gap 12.2 mEq/L (5-15); Blood Urea Nitrogen 14 mg/dl (9-20); Calcium 8.8 mg/dl (8.4-10.2); Carbon Dioxide 23 mmol/L (22.0-30.0); Chloride 108 mmol/L (98-107); Creatinine Clearance Estimated 166 mL/min (50-200); Estimated Glomerular Filt Rate 118 ml/min (>60); GFR (African American) 143 ML/MIN (>60); Glucose 265 mg/dl (74-100); Potassium 4.2 mmoL/L (3.5-5.1); Sodium 139 mmol/L (136-145)
== END 2024-07-07 23:59 | disposition home or self-care (01) ==
LOC: PREOP 14:21
PROVIDERS: PCP Nurse Practitioner Family; Visit Provider Student in an Organized Health Care Education/Training Program
DX: G47.33 Obstructive sleep apnea (adult) (pediatric) (principal); R94.31 Abnormal electrocardiogram [ECG] [EKG]
CPT/HCPCS: 80048; 85025; 93005

== ENCOUNTER 2024-07-15 08:00 | Day surgery (SDC) | payer MEDICARE, MEDICAID, SELFPAY ==
[2024-07-07 14:52] VITALS: BMI 30.1
[2024-07-15 08:47] VITALS: BP 119/77; PULSE 77; RESP 16; TEMP 36.8; O2SAT 98
[2024-07-15] MEDS: LACTATED RINGERS 1000ML 1,000 ML 25 ML IV (08:55)
[2024-07-15 08:56] LABS: POC Glucose,Bedside 176 (70-110)
--- NOTE | 2024-07-15 09:33 | EXP.ANES.CKL ---
[facility] Disclaimer: The information contained in this section may have been updated after the patient was seen, as this information can be updated by other users. Medical History (Updated 07/07/24 @ 14:48 by Mary Jane Matthews RN) Asperger disorder Sleep apnea Major depressive disorder Generalized anxiety disorder Bowel incontinence Increased bowel frequency Bowel obstruction Depression Anxiety Hypertension Bulging disc Type 2 diabetes mellitus without complications CAD (coronary artery disease) Asperger syndrome Surgical History (Updated 07/07/24 @ 14:48 by Mary Jane Matthews RN) Stented coronary artery History of right heart catheterization History of tonsillectomy and adenoidectomy H/O hernia repair Family History Family/Other Coronary artery disease Heart attack Cancer neck Epilepsy Autism Diabetes Stroke Social History (Updated 07/07/24 @ 14:49 by Mary Jane Matthews RN) Smoking Status: Never smoker alcohol intake: never substance use type: denies use current occupational status: other Travel in the last 8 weeks: None current occupational exposures/hazards: No caffeine: Yes [facility] Anesthesia Checklist Patient Identification Patient Identification: Arm Band and Family Structural Data Admitted From: Home Planned Operative Procedure/s: Drug Induced Sleep Endoscopy Consent for Planned Operative Procedure(s) Verified: Yes Verified Documents: Surgical Consent and History and Physical NPO Status Verified Time NPO: 00:00 Additional verifications Anesthesia Reactions: No Hx Blood Transfusions: No Blood Transfusion Reaction: No Airway Assessment Mallampati Score:: Class II C-Spine Mobility Assessed: Yes TMJ Mobility Assessed: Yes Dentition: Edentulous Neurological Assessment Level of Consciousness: Awake, Alert and Appropriate Anesthesia Plan Anesthesia Risk discussed: Yes Anesthesia Plan: Verified ASA Class: III Anesthesia Type: MAC
[2024-07-15] MEDS: OXYMETAZOLINE NASAL SPRAY 0.05% 15ML 15 ML NS (09:52)
[2024-07-15] MEDS: LIDOCAINE 1% 10ML MDV 10 ML (09:52)
--- NOTE | 2024-07-15 10:03 | EXP.OP.NOTE ---
Date of procedure: 07/15/24 Pre-op Diagnosis:: obstructive sleep apnea Post-op Diagnosis:: same Procedure performed:: drug induced sleep endoscopy Surgeon:: Gilles Oswald MD RAILWAYS ASSISTANT:: Jose Martin Cho Anesthesia: MAC Estimated blood loss (mL): 0 Operative findings:: patient would qualify for the hypoglossal nerve stimulator procedure based off of today's endoscopy Operative note:: Patient was brought to the OR, laid in supine position, we slowly up titrated propofol drip until the patient was snoring and intermittently apneic. Less than a cc of lidocaine mixed with Afrin was instilled into his nares. Flexible fiberoptic scope was then inserted through his left nare. He had anterior posterior collapse of his palate with less than 25% concentric collapse. He had mild lateral inward collapse of his oropharyngeal yuan. He had severe anterior posterior collapse of his base of tongue and epiglottis which was significantly improved with jaw thrust maneuver. Scope was then removed and patient was turned back over to anesthesia to be awoken. Condition: stable Disposition: PACU Complications:: none
[2024-07-15 10:05] VITALS: BP 120/80; PULSE 85; RESP 18; TEMP 36.6; O2SAT 93
[2024-07-15 10:15] VITALS: BP 110/71; PULSE 77; RESP 18; TEMP 36.6; O2SAT 95
[2024-07-15 10:25] VITALS: BP 116/72; PULSE 77; RESP 18; TEMP 36.6; O2SAT 94
[2024-07-15 10:35] VITALS: BP 140/38; PULSE 82; RESP 16; TEMP 36.6; O2SAT 97
== END 2024-07-15 10:37 | disposition home or self-care (01) ==
PROVIDERS: PCP Nurse Practitioner Family; Visit Provider Student in an Organized Health Care Education/Training Program
PROC: (CPT 42975; principal; 2024-07-15 09:45)
DX: G47.33 Obstructive sleep apnea (adult) (pediatric) (principal); E11.9 Type 2 diabetes mellitus without complications; Z79.84 Long term (current) use of oral hypoglycemic drugs
CPT/HCPCS: 42975; 82962; J7120

== ENCOUNTER 2024-07-20 09:31 | Outpatient (POV) | payer MEDICARE, MEDICAID, SELFPAY ==
[2024-07-20 09:48] VITALS: BP 122/73; PULSE 75; RESP 18; O2SAT 97; BMI 30.1
--- NOTE | 2024-07-20 10:41 | EXP.PAIN.SOA ---
[facility] Disclaimer: The information contained in this section may have been updated after the patient was seen, as this information can be updated by other users. Medical History (Updated 07/20/24 @ 10:44 by Patricia Addison APRN) Asperger disorder Sleep apnea Major depressive disorder Generalized anxiety disorder Bowel incontinence Increased bowel frequency Bowel obstruction Depression Anxiety Hypertension Bulging disc Type 2 diabetes mellitus without complications CAD (coronary artery disease) Asperger syndrome Surgical History (Updated 07/07/24 @ 14:48 by Mary Jane Matthews RN) Stented coronary artery History of right heart catheterization History of tonsillectomy and adenoidectomy H/O hernia repair Family History Family/Other Coronary artery disease Heart attack Cancer neck Epilepsy Autism Diabetes Stroke Social History (Updated 07/15/24 @ 09:36 by William Herbert CRNA) Smoking Status: Never smoker alcohol intake: never substance use type: denies use current occupational status: other current occupational exposures/hazards: No caffeine: Yes PM Subjective & Objective Subjective Subjective:: Patient is a pleasant 54-year-old male who presents today for follow-up of his transforaminal epidural along the left side L4-L5 and L5-S1 on 05/26/2024. He does state that this did help provide improvement with more than 50% relief. He states that his pain today in his right elbow is around a 2 out of 10 however does state that he has been having worsening pain even along the right hip for the last few months that is progressively worsening and rates that at least a 5 out of 10. Patient denies any recent injury or trauma. Patient denies any radiating symptoms into his lower extremities other than some in his upper thigh area. Patient describes this as an aching, throbbing sensation with increased pressure. He does state the pain is interfering with his ability perform activities of daily living such as cooking and cleaning. Patient has continued conservative treatment including at home stretching exercise for longer than 12 weeks. His Nabil has been reviewed and is appropriate. Review of Systems: General: No recent weight changes, no fever, no sleep disturbances Respiratory: No cough, no shortness of air, no recurring pulmonary infections Cardiovascular/peripheral vascular: No chest pain, no palpitations, no edema, no shortness of breath Gastrointestinal: No new onset incontinence, normal bowel movements reported Genitourinary: No new onset incontinence Musculoskeletal: Low back pain, bilateral hip pains, upper thigh pain Psychiatric: [Normal mood/affect] Neurological: [Denies weakness in extremities], [denies balance issues] Pain at rest (0-10 scale): 5 Objective Objective:: Physical Exam: General: Alert and oriented x3, no acute distress, pleasant and cooperative Lungs: Respirations even and unlabored, symmetrical chest expansion Eyes: PERRL Musculoskeletal: Flexion and extension of lumbar [spine] somewhat guarded secondary to pain, [antalgic gait noted] point tenderness along bilateral SIs with positive bilateral Martin's, Umer's, Gaenslen's, compression and distraction exam Neurological: Speech clear, no gross sensory deficit Has patient had previous pain injection?: Yes Percent improvement in pain since last injection: 50% Conservative treatment options previously tried: Home exercise plan Length of treatment: Longer than 12 weeks Meds Home Medications and Allergies Home Medications ?Medication ?Instructions ?Recorded ?Confirmed ?Type albuterol sulfate 90 mcg/actuation 1 - 2 puffs inhalation Q4-6H PRN 12/03/18 07/20/24 History aerosol inhaler (Ventolin HFA) Shortness Of Breath Or Wheezing aspirin 81 mg tablet,delayed 81 mg PO DAILY HEART HEALTH 12/03/18 07/20/24 History release cetirizine 10 mg tablet (Zyrtec) 10 mg PO DAILY Allergy symptoms 12/03/18 07/20/24 History empagliflozin 25 mg-linagliptin 5 1 ea PO DAILY DM 12/03/18 07/20/24 History mg tablet (Glyxambi) atorvastatin 20 mg tablet 20 mg PO DAILY 12/16/23 07/20/24 History lisinopril 10 mg tablet 10 mg PO DAILY HTN 90 days #90 tabs 12/16/23 07/20/24 Rx triamcinolone acetonide 0.1 % 1 applic topical DIRECTED Skin 12/16/23 07/20/24 History topical cream Condition alprazolam 0.25 mg tablet 0.25 mg PO DAILY PRN anxiety #10 01/06/24 07/20/24 Rx tabs celecoxib 200 mg capsule 200 mg PO BID 90 days #180 caps 01/10/24 07/20/24 Rx methocarbamol 500 mg tablet 500 mg PO QID PRN muscle spasm 01/21/24 07/20/24 Rx #120 tabs buspirone 5 mg tablet 5 mg PO BID 90 days #180 tabs 03/18/24 07/20/24 Rx ondansetron 4 mg disintegrating 4 mg PO Q6H PRN nausea and 04/30/24 07/20/24 Rx tablet vomiting 4 days #16 tabs docusate sodium 100 mg capsule 100 mg PO DAILY PRN Constipation 05/04/24 07/20/24 History linaclotide 72 mcg capsule 72 mcg PO DAILY 30 days #30 caps 05/04/24 07/20/24 Rx (Linzess) simethicone 500 mg capsule 500 mg PO BID PRN abdominal 05/15/24 07/20/24 Rx distention #30 caps lidocaine 5 % topical patch 3 patch topical DAILY PRN pain #90 06/01/24 07/20/24 Rx ea cariprazine 1.5 mg capsule 1.5 mg PO DAILY #30 caps 06/11/24 07/20/24 Rx (Vraylar) metformin 1,000 mg tablet See Rx Instructions .Route 06/16/24 07/20/24 Rx .COMPLEX #180 tabs escitalopram oxalate 20 mg tablet See Rx Instructions .Route 06/19/24 07/20/24 Rx .COMPLEX #30 tabs clopidogrel 75 mg tablet See Rx Instructions .Route 06/22/24 07/20/24 Rx .COMPLEX #90 tabs omeprazole 20 mg capsule,delayed See Rx Instructions .Route 06/22/24 07/20/24 Rx release .COMPLEX #90 caps metoprolol succinate 25 mg See Rx Instructions .Route 07/08/24 07/20/24 Rx tablet,extended release 24 hr .COMPLEX #90 tabs cariprazine 1.5 mg capsule 1.5 mg PO DAILY 07/20/24 07/20/24 History (Vraylar) New Prescriptions to Start Prescriptions: Allergies Allergy/AdvReac Type Severity Reaction Status Date / Time diphenhydramine (From Allergy Unknown AGITATION Verified 06/29/24 13:15 BENADRYL) mirtazapine (From REMERON) Allergy Unknown Unknown Verified 06/29/24 13:15 allergy reaction Assessment and Plan *Assessment and plan (1) Bilateral sacroiliitis: Status: Acute Category: Medical Code(s): M46.1 - Sacroiliitis, not elsewhere classified Plan Patient is experiencing worsening pain along the low back and bilateral hips. They did have limited range of motion of the lumbar spine along with point tenderness along bilateral SI joints and a positive bilateral Martin's, Umer's, Gaenslen's, compression and distraction exam. I did discuss with the patient that I do believe they would benefit from bilateral SI injections. Risk and benefits were discussed with the patient and they would like to proceed forward with this option. Patient has tried and failed conservative therapy including continued at home stretching exercise for longer than 12 weeks. Patient will be scheduled for bilateral SI injections under fluoroscopy. Patient has been instructed to contact the clinic with any concerns before the next appointment. Dr. Medina has reviewed this note and agrees with this plan of care. This note was dictated using voice recognition software and make contain errors or omissions. All injections are used with Lidocaine or Bupivacaine and Depo Medrol.
== END 2024-07-20 23:59 | disposition home or self-care (01) ==
LOC: SC.PAIN 09:32
PROVIDERS: PCP Nurse Practitioner Family; Visit Provider Nurse Practitioner Family
DX: M46.1 Sacroiliitis, not elsewhere classified (principal); Z73.89 Other problems related to life management difficulty; Z79.899 Other long term (current) drug therapy
CPT/HCPCS: 99212; G0463

== ENCOUNTER → 2024-09-15 13:15 | Day surgery (SDC) | payer MEDICARE, MEDICAID, SELFPAY ==
--- NOTE | 2024-09-15 13:49 | P.PCN_ITS ---
Procedure Date: 09/15/24 Time: 13:45 Anesthesiologist:: Antony Hyman CRNA Complications:: None Pre-procedure Diagnosis:: Bilateral sacroiliitis. Post-procedure Diagnosis:: Same. Indications for Procedure:: Patient is a pleasant 54-year-old male who comes our clinic today for bilateral sacroiliac joint injections cortisone and local anesthetic. Patient describes low lumbar back pain off the midline bilaterally. Bilateral posterior hip pain. He reports having difficulty transitioning from sitting to standing. Difficulty with ambulation due to bilateral posterior hip pain. He rates his pain 8/10. Procedure Details:: Procedure: Bilateral sacroiliac joint injections under fluoroscopy Informed consent was obtained and the risks and benefits of the procedure were explained to the patient.~ The patient was taken to the procedure room and noninvasive monitors were placed including a noninvasive blood pressure cuff and pulse oximeter.~ The patient was placed prone on the procedure table. Both hips were cleansed using Betadine as a cleansing solution. C-arm fluoroscopy was used to view the right sacroiliac joint.~ The skin and subcutaneous tissues were anesthetized using lidocaine 1.5% and a 25-gauge needle.~ After this, a 22-gauge spinal needle was inserted under fluoroscopic guidance into the inferior aspect of the right sacroiliac joint.~ Omnipaque dye was injected and good spread was seen throughout the joint.~ After this, approximately 5 mL of bupivacaine, 0.25% and Depo-Medrol, 40 mg was incrementally injected into the right sacroiliac joint. We then moved to the left sacroiliac joint.~ The skin and subcutaneous tissues were anesthetized using lidocaine 1.5% and a 25-gauge needle.~ After this, a 22- gauge spinal needle was inserted under fluoroscopic guidance into the inferior aspect of the left sacroiliac joint.~ Omnipaque dye was injected and good spread was seen throughout the joint. After this, approximately 5 mL of bupivacaine, 0.25% and Depo-Medrol, 40 mg was incrementally injected into the left sacroiliac joint.~ The patient tolerated the procedure well with no complications. The patient was observed in the Pain Clinic and then was discharged home neurologically intact. Plan and Disposition:: Patient was discharged without incident.
[2024-09-15 13:50] VITALS: BP 106/73; PULSE 71; RESP 16; O2SAT 96; BMI 30.1
[2024-09-15 13:54] VITALS: BP 115/83; PULSE 64; RESP 18; O2SAT 98
[2024-09-15] MEDS: LIDOCAINE 1% 5ML PF VIAL 5 ML (14:19)
[2024-09-15] MEDS: BUPIVACAINE 0.25% 10ML INJ 25 MG IJ (14:19)
[2024-09-15 14:31] VITALS: BP 127/86; PULSE 65; RESP 18; O2SAT 94
[2024-09-15 14:32] VITALS: BP 127/86; PULSE 65; RESP 18; O2SAT 94
== END | disposition home or self-care (01) ==
PROVIDERS: PCP Nurse Practitioner Family; Visit Provider Nurse Anesthetist, Certified Registered
DX: M46.1 Sacroiliitis, not elsewhere classified (principal)
CPT/HCPCS: 27096; G0260; J1010

== ENCOUNTER 2024-10-01 13:20 | Outpatient (POV) | payer MEDICARE, MEDICAID, SELFPAY ==
--- NOTE | 2024-10-01 13:37 | EXP.PAIN.SOA ---
[facility] Disclaimer: The information contained in this section may have been updated after the patient was seen, as this information can be updated by other users. Medical History AMBROCIO (obstructive sleep apnea) Asperger disorder Sleep apnea Major depressive disorder Generalized anxiety disorder Bowel incontinence Increased bowel frequency Bowel obstruction Depression Anxiety Hypertension Bulging disc Type 2 diabetes mellitus without complications CAD (coronary artery disease) Asperger syndrome Surgical History Stented coronary artery History of right heart catheterization History of tonsillectomy and adenoidectomy H/O hernia repair Family History Family/Other Coronary artery disease Heart attack Cancer neck Epilepsy Autism Diabetes Stroke Social History Smoking Status: Never smoker alcohol intake: never substance use type: denies use current occupational status: other Travel in the last 8 weeks: None current occupational exposures/hazards: No caffeine: Yes Have you lived/traveled outside [place] in past 30 days?: No Contact w/someone who lives/traveled outside [place] past 30 days?: No Exposure to someone with infectious disease in past 14 days?: No Do you have a fever (greater than 100.4 F or 38 C)?: No Have you tested positive for COVID-19: No Exposed to someone with COVID-19 in past 14 days?: No Do you have a sore throat?: No Do you have a cough?: No Do you have any weakness?: No Do you have any diarrhea?: No Are you experiencing any unusual bleeding?: No Do you have any muscle aches/pain?: No Do you have any abdominal pain?: No Are you experiencing loss of taste or smell?: No PM Subjective & Objective Subjective Subjective:: Patient is a pleasant 54-year-old male who presents today for follow-up of bilateral SI injections on 09/15/2024. Today he rates his pain a 0 out of 10. He denies any new trauma or injury. He does state that he has had about 99% improvement following this injection and feels like it still working well. He states that he does notice a little bit pain when he bends forward however it is nothing like what it was and is very manageable. He denies any other changes from her last appointment. His Nabil has been reviewed and is appropriate. Review of Systems: General: No recent weight changes, no fever, no sleep disturbances Respiratory: No cough, no shortness of air, no recurring pulmonary infections Cardiovascular/peripheral vascular: No chest pain, no palpitations, no edema, no shortness of breath Gastrointestinal: No new onset incontinence, normal bowel movements reported Genitourinary: No new onset incontinence Musculoskeletal: Low back pain Psychiatric: [Normal mood/affect] Neurological: [Denies weakness in extremities], [denies balance issues] Pain at rest (0-10 scale): 0 Objective Objective:: Physical Exam: General: Alert and oriented x3, no acute distress, pleasant and cooperative Lungs: Respirations even and unlabored, symmetrical chest expansion Eyes: PERRL Musculoskeletal: Flexion and extension of lumbar [spine] within normal limit Neurological: Speech clear, no gross sensory deficit Has patient had previous pain injection?: Yes Percent improvement in pain since last injection: 99% Conservative treatment options previously tried: Home exercise plan Length of treatment: Longer than 12 weeks Meds Home Medications and Allergies Home Medications ?Medication ?Instructions ?Recorded ?Confirmed ?Type albuterol sulfate 90 mcg/actuation 1 - 2 puffs inhalation Q4-6H PRN 12/03/18 08/24/24 History aerosol inhaler (Ventolin HFA) Shortness Of Breath Or Wheezing aspirin 81 mg tablet,delayed 81 mg PO DAILY HEART HEALTH 12/03/18 08/24/24 History release cetirizine 10 mg tablet (Zyrtec) 10 mg PO DAILY Allergy symptoms 12/03/18 08/24/24 History triamcinolone acetonide 0.1 % 1 applic topical DIRECTED Skin 12/16/23 08/24/24 History topical cream Condition methocarbamol 500 mg tablet 500 mg PO QID PRN muscle spasm 01/21/24 08/24/24 Rx #120 tabs buspirone 5 mg tablet 5 mg PO BID 90 days #180 tabs 03/18/24 08/24/24 Rx ondansetron 4 mg disintegrating 4 mg PO Q6H PRN nausea and 04/30/24 08/24/24 Rx tablet vomiting 4 days #16 tabs simethicone 500 mg capsule 500 mg PO BID PRN abdominal 05/15/24 08/24/24 Rx distention #30 caps metformin 1,000 mg tablet See Rx Instructions .Route 06/16/24 08/24/24 Rx .COMPLEX #180 tabs clopidogrel 75 mg tablet See Rx Instructions .Route 06/22/24 08/24/24 Rx .COMPLEX #90 tabs omeprazole 20 mg capsule,delayed See Rx Instructions .Route 06/22/24 08/24/24 Rx release .COMPLEX #90 caps metoprolol succinate 25 mg See Rx Instructions .Route 07/08/24 08/24/24 Rx tablet,extended release 24 hr .COMPLEX #90 tabs atorvastatin 20 mg tablet See Rx Instructions .Route 08/13/24 08/24/24 Rx .COMPLEX #90 tabs celecoxib 200 mg capsule See Rx Instructions .Route 08/13/24 08/24/24 Rx .COMPLEX #180 caps empagliflozin 25 mg-linagliptin 5 See Rx Instructions .Route 08/13/24 08/24/24 Rx mg tablet (Glyxambi) .COMPLEX #90 tabs cariprazine 1.5 mg capsule 1.5 mg PO DAILY #30 caps 08/24/24 08/24/24 Rx (Vraylar) escitalopram oxalate 20 mg tablet See Rx Instructions .Route 09/11/24 Rx .COMPLEX #30 tabs lisinopril 10 mg tablet See Rx Instructions .Route 09/11/24 Rx .COMPLEX #90 tabs New Prescriptions to Start Prescriptions: Allergies Allergy/AdvReac Type Severity Reaction Status Date / Time diphenhydramine (From Allergy Unknown AGITATION Verified 08/24/24 15:00 BENADRYL) mirtazapine (From REMERON) Allergy Unknown Unknown Verified 08/24/24 15:00 allergy reaction Assessment and Plan *Assessment and plan (1) Bilateral sacroiliitis: Status: Acute Category: Medical Code(s): M46.1 - Sacroiliitis, not elsewhere classified Plan Patient has had significant improvement and does not require any additional injection therapy at this time. Patient will call us for his next appointment. He does state that he is having to change his insurance and he is not exactly sure when all of this is going to take place. Patient has been instructed to contact the clinic with any concerns before the next appointment. Dr. Medina has reviewed this note and agrees with this plan of care. This note was dictated using voice recognition software and make contain errors or omissions. All injections are used with Lidocaine, Bupivacaine and Depo Medrol. Occasionally urine drug screen is needed to verify patient's compliance with our office pain contract. This is ordered based off specific treatments related to chronic pain with the potential to abuse certain medications.
[2024-10-01 15:08] VITALS: BP 127/67; PULSE 70; RESP 18; O2SAT 97; BMI 30.1
== END 2024-10-01 23:59 | disposition home or self-care (01) ==
LOC: SC.PAIN 13:21
PROVIDERS: PCP Nurse Practitioner Family; Visit Provider Nurse Practitioner Family
DX: M46.1 Sacroiliitis, not elsewhere classified (principal); Z79.899 Other long term (current) drug therapy
CPT/HCPCS: 99212; G0463

== ENCOUNTER 2025-01-05 10:45 | Outpatient (CLI) | payer MEDICARE, MEDICAID, SELFPAY | END 2025-01-05 23:59 | disposition home or self-care (01) | LOC: LAB.DROPOF 01-07 10:46 | PROVIDERS: PCP Nurse Practitioner Family; Visit Provider Nurse Practitioner Family | DX: N39.0 Urinary tract infection, site not specified (principal) | CPT/HCPCS: 87086 ==

== ENCOUNTER 2025-01-15 13:44 | Emergency (ER) | payer MEDICARE, MEDICAID, SELFPAY ==
[2025-01-15 13:44] VITALS: BP 117/76; PULSE 75; RESP 18; TEMP 36.9; O2SAT 98; BMI 30.1
--- NOTE | 2025-01-15 13:49 | XR_ITS ---
FINAL REPORT CLINICAL HISTORY: Chest pain COMPARISON: 05/27/2022 FINDINGS: CHEST 2 VIEWS No acute pulmonary density is evident. There is no evidence of effusion or other pleural disease. The mediastinum has a normal appearance. The cardiac silhouette is unremarkable. IMPRESSION: Unremarkable chest exam. Reviewed, Interpreted and Dictated by Linnette Dockery MD Transcribed by Malinda Olmos Authenticated and [facility]
--- NOTE | 2025-01-15 13:49 | ECG_ITS ---
APPROVED REPORT Exam: Resting ECG HR:71 bpm ECG Measurements Heart Rate 71 AXES GA 175 P 36 QRSd 94 QRS 40 QT 375 T 5 QTc 397 Conclusion SINUS RHYTHM Electronically signed by : ENRIQUE ALVARES, 01/20/2025 08:12:03
[2025-01-15 14:00] LABS: Basophils % 0.4 % (0.1-2.0); Eosinophils # 0.1 Kmm3 (0.0-0.4); Eosinophils % 1.8 % (0.1-12.0); Hemoglobin 16.7 g/dL (14.1-18.0); Immature Granulocytes # 0.01 10^3uL; Immature Granulocytes % 0.2 %; Lymphocytes # 1.6 K/mm3 (0.7-4.5); Lymphocytes % 31.2 % (10-50); Mean Corpuscular HGB Conc 34.8 g/dL (31.8-35.4); Mean Corpuscular Hemoglobin 31.1 pg (27.0-31.2); Mean Corpuscular Volume 89.4 fl (80-94); Mean Platelet Volume 10.3 fl (7.4-10.4); Monocytes # 0.5 K/mm3 (0.1-1.0); Neutrophils # 2.9 K/mm3 (1.8-7.8); Neutrophils % 56.4 % (37.0-80.0); Nucleated Red Blood Cells # 0 10^3/uL; Nucleated Red Blood Cells % 0 %; Platelet Count 204 K/mm3 (142-424); Red Blood Count 5.37 M/mm3 (4.60-6.20); Red Cell Distribution Width 12.1 % (11.5-17.5); Red Cell Distribution Width-SD 39.7 fL; White Blood Count 5.1 K/mm3 (4.8-10.8)
[2025-01-15 14:05] LABS: Albumin Level 4.4 g/dl (3.5-5.0); Chloride 107 mmol/L (98-107); Sodium 140 mmol/L (136-145)
[2025-01-15 14:07] LABS: Blood Urea Nitrogen 17 mg/dl (9-20); Creatinine Clearance Estimated 146 mL/min (50-200); Estimated Glomerular Filt Rate 102 ml/min (>60); GFR (African American) 123 ML/MIN (>60)
[2025-01-15 14:08] LABS: Alanine Aminotransferase 37 U/L (12-78); Albumin/Globulin Ratio 1.8 (1.1-1.8); Alkaline Phosphatase 100 U/L (38-126); Aspartate Amino Transferase 31 U/L (17-59); Calcium 9.3 mg/dl (8.4-10.2); Carbon Dioxide 27 mmol/L (22.0-30.0); Globulin 2.4 g/dL (1.3-3.2); Glucose 179 mg/dl (74-100); Total Protein,Serum 6.8 g/dl (6.3-8.2)
[2025-01-15 14:20] LABS: Troponin I < 0.01 ng/ml (0.00-0.034)
[2025-01-15 14:25] LABS: INR 0.97 (0.9-1.1); Prothrombin Time 10.8 seconds (10.1-12.5)
--- NOTE | 2025-01-15 15:32 | [facility].EDCP ---
Discharge Plan Disposition Patient Disposition: Home, Self-Care Condition: Good Prescriptions Prescriptions: No Action ciprofloxacin HCl 500 mg tablet 500 mg PO BID 7 Days Qty: 14 0RF methocarbamol 500 mg tablet 500 mg PO QID PRN (Reason: muscle spasm) Qty: 120 0RF simethicone 500 mg capsule 500 mg PO BID PRN (Reason: abdominal distention) Qty: 30 0RF celecoxib 200 mg capsule See Rx Instructions .ROUTE .COMPLEX Qty: 180 1RF Dose Instruction: TAKE ONE CAPSULE BY MOUTH TWICE DAILY --TAKE WITH FOOD-- Rx Instructions: TAKE ONE CAPSULE BY MOUTH TWICE DAILY --TAKE WITH FOOD-- atorvastatin 20 mg tablet See Rx Instructions .ROUTE .COMPLEX Qty: 90 1RF Dose Instruction: TAKE ONE TABLET BY MOUTH EVERY DAY Rx Instructions: TAKE ONE TABLET BY MOUTH EVERY DAY Glyxambi 25-5 mg tablet See Rx Instructions .ROUTE .COMPLEX Qty: 90 1RF Dose Instruction: TAKE ONE TABLET BY MOUTH EVERY DAY Rx Instructions: TAKE ONE TABLET BY MOUTH EVERY DAY lisinopril 10 mg tablet See Rx Instructions .ROUTE .COMPLEX Qty: 90 2RF Dose Instruction: TAKE ONE TABLET BY MOUTH EVERY DAY FOR HIGH BLOOD PRESSURE Rx Instructions: TAKE ONE TABLET BY MOUTH EVERY DAY FOR HIGH BLOOD PRESSURE clopidogrel 75 mg tablet See Rx Instructions .ROUTE .COMPLEX Qty: 90 1RF Dose Instruction: TAKE ONE TABLET BY MOUTH EVERY DAY Rx Instructions: TAKE ONE TABLET BY MOUTH EVERY DAY escitalopram oxalate 20 mg tablet See Rx Instructions .ROUTE .COMPLEX Qty: 30 2RF Dose Instruction: TAKE ONE TABLET BY MOUTH EVERY DAY Rx Instructions: TAKE ONE TABLET BY MOUTH EVERY DAY buspirone 5 mg tablet See Rx Instructions .ROUTE .COMPLEX Qty: 180 1RF Dose Instruction: TAKE ONE TABLET BY MOUTH TWICE DAILY Rx Instructions: TAKE ONE TABLET BY MOUTH TWICE DAILY omeprazole 20 mg capsule,delayed release(DR/EC) See Rx Instructions .ROUTE .COMPLEX Qty: 90 1RF Dose Instruction: TAKE ONE CAPSULE BY MOUTH EVERY DAY Rx Instructions: TAKE ONE CAPSULE BY MOUTH EVERY DAY metformin 1,000 mg tablet See Rx Instructions .ROUTE .COMPLEX Qty: 180 1RF Dose Instruction: TAKE ONE TABLET BY MOUTH TWICE DAILY Rx Instructions: TAKE ONE TABLET BY MOUTH TWICE DAILY metoprolol succinate 25 mg tablet extended release 24 hr See Rx Instructions .ROUTE .COMPLEX Qty: 90 1RF Dose Instruction: TAKE ONE TABLET BY MOUTH EVERY DAY AT BEDTIME Rx Instructions: TAKE ONE TABLET BY MOUTH EVERY DAY AT BEDTIME Vraylar 1.5 mg capsule See Rx Instructions .ROUTE .COMPLEX Qty: 30 0RF Dose Instruction: TAKE ONE CAPSULE BY MOUTH EVERY DAY Rx Instructions: TAKE ONE CAPSULE BY MOUTH EVERY DAY albuterol sulfate [Ventolin HFA] 18 GM HFA aerosol inhaler 1 - 2 puffs inhalation Q4-6H PRN (Reason: Shortness Of Breath Or Wheezing) cetirizine [Zyrtec] 10 MG tablet 10 mg PO DAILY aspirin 81 MG tablet,delayed release (DR/EC) 81 mg PO DAILY ondansetron 4 mg tablet,disintegrating 4 mg PO Q6H PRN (Reason: nausea and vomiting) 4 Days Qty: 16 0RF Referrals Follow up/Referrals: Hannah Turner APRN [Primary Care Provider] - See instructions Activity Restrictions/Add. Instructions Additional Instructions/Restrictions: Please follow-up with cardiology next week you have any new or worsening signs or symptoms return to the ER as needed Clinical Impressions Clinical Impression: Chest pain Print Language Print Language: Arabic Discharge ED Provider: Sang Velarde HPI <DIPESH Berry - Last Filed: 01/15/25 21:48> General Chief Complaint: Chest Pain Stated Complaint: chest pain Time Seen by Provider: 01/15/25 15:32 Mode of Arrival: Ambulatory Source of Information: Patient Description of Symptoms (Recalled from ER Triage Doc. by RN): Pt presnts for evaluation of left sided chest pain that started 30 minutes [employer]. Pt has a cardiac hx. History of Present Illness HPI narrative: Patient presents for evaluation of chest pain. Patient started having chest pain approximately 30 minutes prior to arrival. He does have a known cardiovascular history with coronary artery disease status post PCI with stent placement. However chest pain occurred at rest while he was with his at the infusion center here. It radiated down his left arm however he denies shortness of breath fever chills hemoptysis hematochezia melena nausea vomiting diarrhea. Related Data Home Medications ?Medication ?Instructions ?Recorded ?Confirmed albuterol sulfate 90 mcg/actuation 1 - 2 puffs inhalation Q4-6H PRN 12/03/18 01/05/25 aerosol inhaler (Ventolin HFA) Shortness Of Breath Or Wheezing aspirin 81 mg tablet,delayed 81 mg PO DAILY HEART HEALTH 12/03/18 01/05/25 release cetirizine 10 mg tablet (Zyrtec) 10 mg PO DAILY Allergy symptoms 12/03/18 01/05/25 Previous Rx's ?Medication ?Instructions ?Recorded methocarbamol 500 mg tablet 500 mg PO QID PRN muscle spasm 01/21/24 #120 tabs ondansetron 4 mg disintegrating 4 mg PO Q6H PRN nausea and 04/30/24 tablet vomiting 4 days #16 tabs simethicone 500 mg capsule 500 mg PO BID PRN abdominal 05/15/24 distention #30 caps atorvastatin 20 mg tablet See Rx Instructions .Route 08/13/24 .COMPLEX #90 tabs celecoxib 200 mg capsule See Rx Instructions .Route 08/13/24 .COMPLEX #180 caps empagliflozin 25 mg-linagliptin 5 See Rx Instructions .Route 08/13/24 mg tablet (Glyxambi) .COMPLEX #90 tabs lisinopril 10 mg tablet See Rx Instructions .Route 09/11/24 .COMPLEX #90 tabs buspirone 5 mg tablet See Rx Instructions .Route 12/07/24 .COMPLEX #180 tabs clopidogrel 75 mg tablet See Rx Instructions .Route 12/07/24 .COMPLEX #90 tabs escitalopram oxalate 20 mg tablet See Rx Instructions .Route 12/07/24 .COMPLEX #30 tabs metformin 1,000 mg tablet See Rx Instructions .Route 12/07/24 .COMPLEX #180 tabs omeprazole 20 mg capsule,delayed See Rx Instructions .Route 12/07/24 release .COMPLEX #90 caps ciprofloxacin HCl 500 mg tablet 500 mg PO BID 7 days #14 tabs 01/05/25 metoprolol succinate 25 mg See Rx Instructions .Route 01/05/25 tablet,extended release 24 hr .COMPLEX #90 tabs cariprazine 1.5 mg capsule See Rx Instructions .Route 01/08/25 (Vraylar) .COMPLEX #30 caps Allergies Allergy/AdvReac Type Severity Reaction Status Date / Time diphenhydramine (From Allergy Unknown AGITATION Verified 01/05/25 13:49 BENADRYL) mirtazapine (From REMERON) Allergy Unknown Unknown Verified 01/05/25 13:49 allergy reaction [facility] <DIPESH Berry - Last Filed: 01/15/25 21:48> [facility] Disclaimer: The information contained in this section may have been updated after the patient was seen, as this information can be updated by other users. Medical History AMBROCIO (obstructive sleep apnea) Asperger disorder Sleep apnea Major depressive disorder Generalized anxiety disorder Bowel incontinence Increased bowel frequency Bowel obstruction Depression Anxiety Hypertension Bulging disc Type 2 diabetes mellitus without complications CAD (coronary artery disease) Asperger syndrome Surgical History Stented coronary artery History of right heart catheterization History of tonsillectomy and adenoidectomy H/O hernia repair Family History Family/Other Coronary artery disease Heart attack Cancer neck Epilepsy Autism Diabetes Stroke Social History Smoking Status: Never smoker alcohol intake: never substance use type: denies use current occupational status: other Travel in the last 8 weeks?: None current occupational exposures/hazards: No caffeine: Yes Have you lived/traveled outside [place] in past 30 days?: No Contact w/someone who lives/traveled outside [place] past 30 days?: No Exposure to someone with infectious disease in past 14 days?: No Do you have a fever (greater than 100.4 F or 38 C)?: No Have you tested positive for COVID-19?: No Exposed to someone with COVID-19 in past 14 days?: No Do you have a sore throat?: No Do you have a cough?: No Do you have any weakness?: No Do you have any diarrhea?: No Are you experiencing any unusual bleeding?: No Do you have any muscle aches/pain?: No Do you have any abdominal pain?: No Are you experiencing loss of taste or smell?: No Other Medical History Have you received the Flu Vaccine for this season: Yes Have you received the Pneumonia Vaccine: No <DIPESH Berry - Last Filed: 01/15/25 21:48> ROS Obtained: Yes Systems reviewed as appropriate & no additional complaints except as documented Physical Exam <DIPESH Berry - Last Filed: 01/15/25 21:48> General General appearance: alert and in no apparent distress Respiratory Respiratory exam: Present normal lung sounds bilaterally Cardiovascular Cardiovascular exam: Present regular rate Neurological Exam Neurological exam: Present alert and oriented X3 HEART Score <DIPESH Berry - Last Filed: 01/15/25 21:48> HEART Score HEART Score assessment performed?: Yes History (anamnesis): Slightly suspicious ECG: Non-specific disturbance Age: 45-65 years Risk factors: Atherosclerosis history Troponin: </= normal limit HEART Score: 4 <Sang Velarde MD - Last Filed: 01/15/25 21:59> HEART Score HEART Score: 4 Critical Care <DIPESH Berry - Last Filed: 01/15/25 21:48> Critical Care Time Critical Care Time: No Medical Decision Making <DIPESH Berry - Last Filed: 01/15/25 21:48> Medical Records Medical records reviewed: Yes I reviewed the patient's medical records. Nabil Inquiry Pt receiving controlled substance: No Vital Signs Vital Signs: 01/15/25 13:44 01/15/25 16:00 01/15/25 16:30 Temperature 98.4 F Temperature Source Oral Pulse Rate 68 69 Pulse Rate [Right] 75 Respiratory Rate 18 Blood Pressure 110/76 116/81 Blood Pressure [Right Arm] 117/76 Blood Pressure Mean [Right Arm] 89 Blood Pressure Source Blood Pressure Source [Right Arm] Automatic Cuff Blood Pressure Position Blood Pressure Position [Right Arm] Sitting 02 Sat by Pulse Oximetry 98 97 95 Oxygen Delivery Method Room Air Room Air 01/15/25 17:00 01/15/25 17:30 01/15/25 17:59 Temperature 98.1 F Temperature Source Oral Pulse Rate 65 80 81 Pulse Rate [Right] Respiratory Rate 17 Blood Pressure 110/73 97/65 L 103/71 L Blood Pressure [Right Arm] Blood Pressure Mean [Right Arm] Blood Pressure Source Automatic Cuff Blood Pressure Source [Right Arm] Blood Pressure Position Sitting Blood Pressure Position [Right Arm] 02 Sat by Pulse Oximetry 97 97 Oxygen Delivery Method Room Air Room Air Room Air Lab Data Lab results reviewed: Yes I reviewed the patient's lab results. Labs: Lab Results 01/15/25 13:51: WBC 5.1, RBC 5.37, Hgb 16.7, Hct 48.0, MCV 89.4, MCH 31.1, MCHC 34.8, RDW 12.1, Plt Count 204, MPV 10.3, Neut % (Auto) 56.4, Lymph % (Auto) 31.2, [place] % (Auto) 10.0 H, Eos % (Auto) 1.8, Baso % (Auto) 0.4, Neut # (Auto) 2.9, Lymph # (Auto) 1.6, [place] # (Auto) 0.5, Eos # (Auto) 0.1, Baso # (Auto) 0.0, PT 10.8, INR 0.97, Sodium 140, Potassium 4.0, Chloride 107, Carbon Dioxide 27, Anion Gap 10.0, BUN 17, Creatinine 0.80, Estimated Creat Clear 146, Estimated GFR 102, Est GFR ( Amer) 123, Glucose 179 H, Calcium 9.3, Total Bilirubin 1.0, AST 31, ALT 37, Alkaline Phosphatase 100, Troponin I < 0.01, Total Protein 6.8, Albumin 4.4, Globulin 2.4, Albumin/Globulin Ratio 1.8 01/15/25 16:53: Troponin I < 0.01 01/15/25 13:51 01/15/25 13:51 Response Orders (Tests/Meds): ED MEDICATIONS Discontinued Medications Generic Name Dose Route Start Last Admin Trade Name Freq PRN Reason Stop Dose Admin Acetaminophen 1,000 mg 01/15/25 15:42 01/15/25 16:05 Acetaminophen 500mg Tab PO 01/15/25 15:43 1,000 mg ONCE ONE Administration Belladonna Alkaloids 60 ml 01/15/25 15:42 01/15/25 16:05 Belladonna Alkaloids 60 Ml Ml PO 01/15/25 15:43 60 ml ONCE ONE Administration Dexamethasone Sodium Phosphate 10 mg 01/15/25 15:42 01/15/25 16:05 Dexamethasone 4mg/Ml 5ml Mdv IV 01/15/25 15:43 10 mg ONCE ONE Administration Ketorolac Tromethamine 15 mg 01/15/25 15:42 01/15/25 16:05 Ketorolac 30mg/Ml Vial IV 01/15/25 15:43 15 mg ONCE ONE Administration ORDERS Category Date Time Status XR chest 2V Stat Exams 01/15/25 13:49 Completed Complete Blood Count Auto Diff Stat Lab 01/15/25 13:51 Completed Comprehensive Metabolic Panel Stat Lab 01/15/25 13:51 Completed Prothrombin Time INR Stat Lab 01/15/25 13:51 Completed Troponin I Q3H Lab 01/15/25 16:53 Completed Troponin I Stat Lab 01/15/25 13:51 Completed MDM Narrative Medical Decision Narrative: In summary patient is a 54-year-old male who presents to the emergency department for evaluation of left-sided chest pain. Patient is hemodynamically stable with a blood pressure 117/76 pulse 75 normal sinus rhythm on bedside monitor breathing 18 times a minute satting at 90% on room air upon arrival, afebrile at 98.4. Physical exam is remarkable for no reproducible chest pain on physical exam with clear breath sounds cardiac is S1-S2 regular rate rhythm without murmurs, thrills abdomen soft nontender no rebound guarding or rigidity. Bowel sounds normoactive.. Differential diagnosis includes ACS versus esophagitis versus gastritis etc. Initial workup will be conducted with hematologic labs plain, chest x-ray twelve-lead EKG. Initial interventions include Toradol Tylenol GI cocktail Zofran. Initial workup reviewed by me shows his hematologic labs are nonactionable including a undetectable first troponin in my informal dictation of his plain contact x-ray shows no acute processes. Given this we will await a second troponin given the acute onset just prior to arrival in the ER.. 3-hour troponin is also undetectable. Upon repeat evaluation patient reports that his symptoms have dissipated after initial intervention. Given this we have essentially ruled out any serious or life-threatening condition and while there remains diagnostic uncertainty as the cause of his chest pain patient is appropriate discharge with close follow-up with cardiology should he have any persistent new or worsening signs or symptoms to follow-up PCP return to the ER as needed. <Sang Velarde MD - Last Filed: 01/15/25 21:59> Vital Signs Vital Signs: 01/15/25 13:44 01/15/25 16:00 01/15/25 16:30 Temperature 98.4 F Temperature Source Oral Pulse Rate 68 69 Pulse Rate [Right] 75 Respiratory Rate 18 Blood Pressure 110/76 116/81 Blood Pressure [Right Arm] 117/76 Blood Pressure Mean [Right Arm] 89 Blood Pressure Source Blood Pressure Source [Right Arm] Automatic Cuff Blood Pressure Position Blood Pressure Position [Right Arm] Sitting 02 Sat by Pulse Oximetry 98 97 95 Oxygen Delivery Method Room Air Room Air 01/15/25 17:00 01/15/25 17:30 01/15/25 17:59 Temperature 98.1 F Temperature Source Oral Pulse Rate 65 80 81 Pulse Rate [Right] Respiratory Rate 17 Blood Pressure 110/73 97/65 L 103/71 L Blood Pressure [Right Arm] Blood Pressure Mean [Right Arm] Blood Pressure Source Automatic Cuff Blood Pressure Source [Right Arm] Blood Pressure Position Sitting Blood Pressure Position [Right Arm] 02 Sat by Pulse Oximetry 97 97 Oxygen Delivery Method Room Air Room Air Room Air Lab Data Labs: Lab Results 01/15/25 13:51: WBC 5.1, RBC 5.37, Hgb 16.7, Hct 48.0, MCV 89.4, MCH 31.1, MCHC 34.8, RDW 12.1, Plt Count 204, MPV 10.3, Neut % (Auto) 56.4, Lymph % (Auto) 31.2, [place] % (Auto) 10.0 H, Eos % (Auto) 1.8, Baso % (Auto) 0.4, Neut # (Auto) 2.9, Lymph # (Auto) 1.6, [place] # (Auto) 0.5, Eos # (Auto) 0.1, Baso # (Auto) 0.0, PT 10.8, INR 0.97, Sodium 140, Potassium 4.0, Chloride 107, Carbon Dioxide 27, Anion Gap 10.0, BUN 17, Creatinine 0.80, Estimated Creat Clear 146, Estimated GFR 102, Est GFR ( Amer) 123, Glucose 179 H, Calcium 9.3, Total Bilirubin 1.0, AST 31, ALT 37, Alkaline Phosphatase 100, Troponin I < 0.01, Total Protein 6.8, Albumin 4.4, Globulin 2.4, Albumin/Globulin Ratio 1.8 01/15/25 16:53: Troponin I < 0.01 Response Orders (Tests/Meds): ED MEDICATIONS Discontinued Medications Generic Name Dose Route Start Last Admin Trade Name Freq PRN Reason Stop Dose Admin Acetaminophen 1,000 mg 01/15/25 15:42 01/15/25 16:05 Acetaminophen 500mg Tab PO 01/15/25 15:43 1,000 mg ONCE ONE Administration Belladonna Alkaloids 60 ml 01/15/25 15:42 01/15/25 16:05 Belladonna Alkaloids 60 Ml Ml PO 01/15/25 15:43 60 ml ONCE ONE Administration Dexamethasone Sodium Phosphate 10 mg 01/15/25 15:42 01/15/25 16:05 Dexamethasone 4mg/Ml 5ml Mdv IV 01/15/25 15:43 10 mg ONCE ONE Administration Ketorolac Tromethamine 15 mg 01/15/25 15:42 01/15/25 16:05 Ketorolac 30mg/Ml Vial IV 01/15/25 15:43 15 mg ONCE ONE Administration ORDERS Category Date Time Status XR chest 2V Stat Exams 01/15/25 13:49 Completed Complete Blood Count Auto Diff Stat Lab 01/15/25 13:51 Completed Comprehensive Metabolic Panel Stat Lab 01/15/25 13:51 Completed Prothrombin Time INR Stat Lab 01/15/25 13:51 Completed Troponin I Q3H Lab 01/15/25 16:53 Completed Troponin I Stat Lab 01/15/25 13:51 Completed MDM Narrative Medical Decision Narrative: In summary patient is a 54-year-old male who presents to the emergency department for evaluation of left-sided chest pain. Patient is hemodynamically stable with a blood pressure 117/76 pulse 75 normal sinus rhythm on bedside monitor breathing 18 times a minute satting at 90% on room air upon arrival, afebrile at 98.4. Physical exam is remarkable for no reproducible chest pain on physical exam with clear breath sounds cardiac is S1-S2 regular rate rhythm without murmurs, thrills abdomen soft nontender no rebound guarding or rigidity. Bowel sounds normoactive.. Differential diagnosis includes ACS versus esophagitis versus gastritis etc. Initial workup will be conducted with hematologic labs plain, chest x-ray twelve-lead EKG. Initial interventions include Toradol Tylenol GI cocktail Zofran. Initial workup reviewed by me shows his hematologic labs are nonactionable including a undetectable first troponin in my informal dictation of his plain contact x-ray shows no acute processes. Given this we will await a second troponin given the acute onset just prior to arrival in the ER.. 3-hour troponin is also undetectable. Upon repeat evaluation patient reports that his symptoms have dissipated after initial intervention. Given this we have essentially ruled out any serious or life-threatening condition and while there remains diagnostic uncertainty as the cause of his chest pain patient is appropriate discharge with close follow-up with cardiology should he have any persistent new or worsening signs or symptoms to follow-up PCP return to the ER as needed. I was consulted by the NAM, and we discussed the complexity of the problems being addressed. I approved the treatment and management plan for this patient's care in the Emergency Department, thus performing a substantive portion of the medical decision making. Sang Velarde MD
[2025-01-15 16:00] VITALS: BP 110/76; PULSE 68; O2SAT 97
[2025-01-15] MEDS: BELLADONNA ALKALOIDS 60 ML ML PO (16:05)
[2025-01-15] MEDS: ACETAMINOPHEN 500MG TAB 1000 MG PO (16:05)
[2025-01-15] MEDS: DEXAMETHASONE 4MG/ML 5ML MDV 10 MG IV (16:05)
[2025-01-15] MEDS: KETOROLAC 30MG/ML VIAL 15 MG IV (16:05)
[2025-01-15 16:30] VITALS: BP 116/81; PULSE 69; O2SAT 95
[2025-01-15 17:00] VITALS: BP 110/73; PULSE 65; O2SAT 97
[2025-01-15 17:30] VITALS: BP 97/65; PULSE 80; O2SAT 97
[2025-01-15 17:38] LABS: Troponin I < 0.01 ng/ml (0.00-0.034)
[2025-01-15 17:59] VITALS: BP 103/71; PULSE 81; RESP 17; TEMP 36.7; O2SAT 98
== END 2025-01-15 18:02 | disposition home or self-care (01) ==
PROVIDERS: Student in an Organized Health Care Education/Training Program; Emergency Provider Emergency Medicine; PCP Nurse Practitioner Family
DX: R07.89 Other chest pain (principal); I25.10 Atherosclerotic heart disease of native coronary artery without angina pectoris; G47.33 Obstructive sleep apnea (adult) (pediatric); I10 Essential (primary) hypertension
CPT/HCPCS: 71046; 80053; 84484; 85025; 85610; 93005; 96374; 96375; 99285; J1100; J1885

== ENCOUNTER 2025-03-08 13:56 | Outpatient (CLI) | payer MEDICARE, MEDICAID, SELFPAY ==
--- OUTSIDE RECORDS SUMMARY | 2025-03-08 14:04 | XMS_ITS | Clinical Summary ---
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 Gender Identity Not on file Sexual Orientation Not on file Plan of Treatment Health Maintenance Due Date Last Done Comments CT Colonography 1972 Colonoscopy 1972 Colorectal Cancer Screening 1972 FOBT/FIT 1972 Fit-DNA (Cologuard) 1972 Sigmoidoscopy 1972 Depression Screening (12+) 1984 Tobacco Cessation Counseling and Screening (12+) 03/20 HIV Screening 1987 Hepatitis C Screening 1990 DTAP/TDAP/TD VACCINES (1 - Tdap) 1991 Lipid Panel 2007 Medicare Initial AWV [id number] 09/27/2018 Pneumococcal 50+ years (1 of 1 - PCV) 2022 Shingles Vaccine (Zoster) (1 of 2) 2022 COVID-19 VACCINE (1 - 2023- season) 2024 Influenza Vaccine (#1) 2025 Insurance [id number] MEDICARE PART A B [employer] MCR ADV MEDICAID OF [place]
--- OUTSIDE RECORDS SUMMARY | 2025-03-08 14:04 | XMS_ITS | Clinical Summary ---
Author Organization [facility] Address [address] [place] [address] Care Team Providers Care [employer] Name Role Phone Melisa Lilly DDS Unavailable + Isis Burroughs Unavailable Unavail able Osriis Chu Primary Care Provider [phone] Allergies Active Allergy Reactions Criticality Noted Date Comments Diphenhydramine Anaphylaxis,Other - please document in the comment field High 04/10/2017 IV only Mirtazapine Other - please docum ent in the comment field Low 04/01/2015 seizure Medications aspirin 81 MG EC tablet Take 81 mg by mouth 1 (one) time each day. Active citalopram (CeleXA) 20 MG tablet Take 20 mg by mouth 2 (two) times a day. 04/09/2022 Active clopidogrel (Plavix) 75 MG tablet Take 75 mg by mouth 1 (one) time each day. 04/13/2022 Active Glyxambi 25-5 MG Take 1 tablet by mouth 1 (one) time each day. 03/23/2022 Active OneTouch Ultra test strip USE 1 strip TO check blood glucose TWICE DAILY 11/02/2021 Active ibuprofen 600 MG tablet TAKE ONE TABLET BY MOUTH EVERY 6 HOURS NEEDED FOR mild pain --TAKE WITH FOOD-- 03/28/2022 Active naproxen (Naprosyn) 250 MG tablet Take 500 mg by mouth twice a day. Active atorvastatin (Lipitor) 20 MG tablet Take 20 mg by mouth 1 (one) time each day. Active busPIRone (Buspar) 5 MG tablet Take 5 mg by mouth. Active lisinopril-hydr oCHLOROthiazide 20-12.5 MG tablet TAKE 1 TABLET DAILY. 04/01/2015 Active metFORMIN (Glucophage) 500 MG tablet Take 500 mg by mouth twice a day. Active omeprazole (PriLOSEC) [address] capsule Take 20 mg by mouth 1 (one) time each day. Active citalopram (CeleXA) 20 MG tablet TAKE 1 TABLET TWICE DAILY. 04/01/2015 Active cetirizine (ZyrTEC) 10 MG tablet Take 10 mg by mouth 1 (one) time each day. Active Family History Medical History Relation Name Comments Cancer Brother Cardiac disorder Father Diabetes Father Epilepsy Mother Relation Name Status Comments Brother Father Mother Social History Tobacco Use Types Packs/Day Years Used Date Smoking Tobacco: Never Tobacco Cessation:Counseling Given: Not Answered Alcohol Use Standard Drinks/Week Comments Yes 0 (1 standard drink = 0.6 oz pur e alcohol) Sex and Gender Information Value Date Recorded Sex Assigned at Not on file Legal Sex Male 6:11 PM EDT Gender Identity Not on file Sexual Orientation Not on file Last Filed Vital Signs Vital Sign Reading Time Taken Comments Blood Pressure 129/83 01/03/2023 1:33 PM EDT Pulse 75 01/03/2023 1:33 PM EDT Temperature 36.2 C (97.2 F) 07/18/2022 2:04 PM EST Respiratory Rate - - Oxygen Saturation 96% 07/18/2022 2:04 PM EST Inhaled Oxygen Concentration - - Weight 95.5 kg (210 lb 9.6 oz) 07/18/2022 2:04 P M EST Height 177.8 cm (5' 10 ) 07/18/2022 2:04 PM EST Body Mass Index 30.22 07/18/2022 2:04 PM EST Plan of Treatment Health Maintenance Due Date Last Done Comments Dental Prophylaxis 1972 Dental X-Ray: Bitewings 1972 [facility]-Depression Screening 1972 [facility]-HIV Screening 1972 [facility]Medic[facility] Annual Wellness (AWV) 1972 [facility]-Infant/Child/Adol SDOH Screenings 1972 [facility]- SDOH Screenings 1990 [facility]-Adult SDOH Screenings 1990 [facility]-DTaP,Tdap,and Td Vaccines (1 - Tdap) 1991 [facility]-Hepatitis B Vaccines (1 of 3 - 19+ 3-dose series) 1991 CT Colonography 2017 Colonoscopy 2017 [facility]-DNA 2017 FIT 2017 FOBT 2017 Sigmoidoscopy 2017 [facility]-Colorectal Cancer Screening 2017 [facility]-Pneumococcal Vaccine: 50+ Years (1 of 1 - PCV) 2022 [facility]-Zoster Vaccines (1 of 2) 2022 Dental Oral Exam 10/21/2022 04/19/2022 [id number] Vaccine (2 - season) 2024 05/03/2021 Dental X-Ray: Full Mouth 04/20/2025 04/19/2022 [facility]-Influenza Vaccine (#1) 2025 05/22/2017, [facility]-Hepatitis A Vaccines Aged Out 08/04/2018 No longer eligible based on patient's age to complete this topic [facility]-Hepatitis C Screening Completed 08/13/2018 [facility]-Obesity Intervention Completed 023, 01/04/2023, 01/03/2023, Additional history exists HPV Vaccines Aged Out No longer eligi ble based on patient's age to complete this topic [facility]-HIB Vaccines Aged Out No longer e ligible based on patient's age to complete this topic [facility]-IPV Vaccines Aged Out No longer e ligible based on patient's age to complete this topic [facility]-Rotavirus Vaccines Aged Out No lo nger eligible based on patient's age to complete this topic Procedures Procedure Name Priority Date/Time Associated Diagnosis Comments PANORAMIC RADIOGRAPHIC IMAGE Routine 04/19/2022 3:00 PM EDT Missing teeth, acquired COMPREHENSIVE ORAL EVALUATION - NEW OR ESTABLISHED PATIENT Routine 04/19/2022 3:00 PM EDT Missing teeth, acquired HEPATITIS C ANTIBODY - ED W/REFLEX TO HCV QUANT PCR Routine 08/13/2018 8:01 PM EST from Last 3 Months or Most Recently Relevant to Health Maintenance Results * [place] Hepatitis C Antibody (08/13/2018 8:01 PM EST) Pathologist [facility] [place] Hepatitis C Ab NEGATIVE Reference Range: Negative SUNQUEST 08/13/2018 8:01 PM EST 08/13/2018 8:36 PM EST us Historical Provider LAB BLOOD ORDERABLES Mitzi rafia Result SUNQUEST from Last 3 Months or Most Recently Relevant to Health Maintenance Insurance [place] [employer] MEDICARE Care Teams [employer] Relationship Specialty Start Date End Date Osiris Chu PA [address] [place] [address] PCP - General 10/01/22 Melisa Lilly DDS [address] [place] [address] Dentist Dentist 07/18/22 Isis Burroughs [place] 07/18/22
--- OUTSIDE RECORDS SUMMARY | 2025-03-08 14:04 | XMS_ITS | Data Portability ---
[facility] Organization [facility] SHU [place] ADMIN Address [address] [place] [id number] Care Team Providers Care Admission Nurse Coordinator Name Role Phone FARIHA JOHNSON Family Medicine FARIHA JOHNSON Primary Care Provider VINAY SMITH Primary Care Provider [phone] Assessment No assessment recorded. Plan of Treatment Reminders Order Date Submit Date Provider Last Modified By Organization Details Last Modified Time Details Appointments None recorded. Lab HbA1c (hemoglobin A1c), blood 2023 024 [facility], [address], [address], [place], [address], 4 09:14:18 testosteron e, free + total, serum 2023 024 [facility], [address], [address], [place], [address], 4 08:43:19 PSA, serum or plasma 2023 024 [facility], [address], [address], [place], [address], 4 08:43:19 magnesium, serum or plasma 2023 024 [facility], [address], [address], [place], [address], 4 08:43:19 lipid panel, serum 2023 024 [facility], [address], [address], [place], [address], 4 08:43:18 vitamin B12 + folate, serum or blood 2023 024 [place], [address], [address], [place], [address], 4 08:43:03 CMP, serum or plasma 2023 024 [place], [address], [address], [place], [address], 4 08:43:19 influenza virus A + B + SARS-CoV-2 (COVID19) Ag panel, rapid IA, upper respiratory specimen 2022 023 [email or web address] 2 [facility], [address], [place], [address], 3 15:54:54 rapid strep group A, throat 2022 023 [email or web address] 2 [facility], [address], [place], [address], 3 15:50:35 Referral None recorded. Procedures None recorded. Surgeries None recorded. Imaging US, doppler, arterial - Left LE pain starting in calf and migrating to back of thigh and buttock x 3+ weeks. No obvious edema [address] (Centralized Scheduling), [address], [place], [address], 4 09:35:07 Medication Orders metformin 1,000 mg tablet 2023 024 [facility], [address] [facility] [address] [place], [id number], 4 14:37:45 omeprazole 20 mg capsule,del ayed release 2023 024 [facility], [address] [place] [address] [address] [place], [id number], 4 14:50:30 atorvastati n 20 mg tablet 2023 024 [facility], [address] [place] [address] [address] [place], [id number], 4 15:44:41 metoprolol succinate ER 25 mg tablet,exte nded release 24 hr 2023 024 [facility], [address] [place] [address] [address] [place], [id number], 4 11:58:47 clopidogrel 75 mg tablet 2023 024 [facility], [address] [place] [address] [address] [place], [id number], 4 14:37:44 ibuprofen 600 mg tablet 2023 024 [facility], [address] [place] [address] [address] [place], [id number], 4 15:44:48 citalopram 20 mg tablet [address], [place], [address], 4 11:06:19 prednisone 20 mg tablet 2022 023 [facility], [address] [place] [address] [address] [place], [id number], 3 11:09:23 Celestone Soluspan 6 mg/mL suspension for injection 2022 023 [email or web address] Not available 4 17:11:17 benzonatate 200 mg capsule 2022 023 [email or web address], [address] [place] [address] [address] [place], [id number], 4 17:02:50 prednisone 20 mg tablet 2022 023 [facility], [address] [place] [address] [address] [place], [id number], 3 16:13:27 Patient TargetsNo targets recorded. Patient InstructionsNo instructions recorded. Reason for Referral None Reported. Results Created Date Observation Date Name Description Value Unit Range Abnormal Flag Note LastModifiedBy Organization Detail LastModifiedTime 05/07/2005/07/2023 influ dav virus A + B + SARS- CoV-2 (COVI D19) Ag panel , rapid IA, upper respi rator y speci men FLU A negati ve Not Available [address], [place], [address], 05/07/2023 15:36:46 05/07/20 23 05/07/2023 influ dav virus A + B + SARS- CoV-2 (COVI D19) Ag panel , rapid IA, upper respi rator y speci men FLU B negati ve Not Available [address], [place], [address], 05/07/2023 15:36:46 05/07/20 23 05/07/2023 influ dav virus A + B + SARS- CoV-2 (COVI D19) Ag panel , rapid IA, upper respi rator y speci men SARS COV + SARS OV 2 negati ve Not Available [address], [place], [address], 05/07/2023 15:36:46 05/07/20 23 05/07/2023 rapid strep group A, throa t Strep negati ve Not Available [facility] [address], [place], [address], 05/07/2023 15:36:48 Result Notes None recorded. Problems Name Problem SNOMED Code Status Onset Date Resolution Date Notes Provider Name and Address Organization Details Recorded Time Anxiety 17433964 Active 2022 Alina Goldberg null, [place] - [facility] - [place] & [place] 3 15:32:44 Asperger's disorder 77245264 Active 2022 Alina Redmondmmett Goldberg null, [place] [facility] [place] [facility] [place] 3 15:32:44 Asthma 471328342 Active 2022 Alinalemuel Cotterett Goldberg null, [place] [facility] [place] [facility] [place] 3 15:32:44 Coronary arterioscleros is 05655729 Active 2022 Alina Goldberg null, [place] - [facility] - [facility] & [place] 3 15:32:44 Diabetes mellitus 78217386 Active 2022 Alina Cotterett Goldberg null, [place] - [facility] - [facility] & [place] 3 15:32:44 Gastroesophage al reflux disease 908119915 Active 2022 Alina Cotterett Goldberg null, [place] - [facility] [place] 3 15:32:44 Hiatal hernia 81898457 Active 2022 Alinachristianne Goldberg null, [place] [facility] [place] [facility] [place] 3 15:32:44 Small bowel obstruction 732901797 Active Alinachristianne Calderon Goldberg null, [place] [facility] [place] [facility] [place] 3 15:32:44 Problem Notes None recorded. Procedures Surgical History Date Name Laterality Status Provider Name and Address Organization Details Recorded Time 08/26/19 17 Cardiovascular Surgery completed Lizbeth MCKINNON - [facility] & [place] 09/05/2023 17:02:52 08/26/19 16 percutaneous transluminal angioplasty of coronary artery using imaging guidance with contrast completed Liv Jacksondi [place] - [facility] & [place] 01/29/2023 09:58:00 08/26/18 78 hernia repair completed Liv Jacksondi [place] - [facility] & [place] 01/29/2023 09:58:41 08/26/18 78 Abdominal Surgery completed Lizbeth MCKINNON - [facility] & [place] 09/05/2023 17:02:52 08/26/18 76 tympanostomy completed Liv Jacksondi [place] [facility] & [place] 01/29/2023 09:59:17 08/26/18 76 Tonsillectomy/Gato oidectomy completed Lizbeth Louie [place] - [facility] & [place] 09/05/2023 17:02:52 tonsillectomy and adenoidectomy completed Liv MCKINNON - [facility] & [place] 01/29/2023 09:58:50 Imaging Results None recorded. Procedure Notes None recorded. Medical Equipment None Reported. Allergies Allergen ID Allergen Name Allergen Category Reaction Reaction Severity Criticality Documentation Date Start Date Code Code System Note Provider Name and Address Organization Details Recorded Time 30822 Benadryl medicatio n Not available Not available Not available 02/06/2023 54646 7 RxNorm liqui d MANE KHADRA cordova [place] - [facility] & [place] 3 13:32:17 55498 Remeron medicatio n Not available Not available Not available 02/06/2023 21038 4 RxNorm MANE KHADRA cordova [place] - [facility] & [place] 3 13:32:30 70150 diphenhyd ramine medicatio n Not available Not available Not available 03/01/2023 3498 RxNorm Other react ions and sever ities : 'Adve rse react ion to subst ance' . [place] Orellana [facility] & [place] 3 17:40:17 59342 mirtazapi ne medicatio n Not available Not available Not available 03/01/2023 33942 RxNorm Other react ions and sever ities : 'Adve rse react ion to subst ance' . INO Orellana [facility] & [place] 3 17:40:17 Medications Name Sig Start Date Stop Date Status Note LastModified by Organization Details LastModified Time Prescriptio n - Prior Authorizati on Request active Not Available Not Available N ot Available celecoxib 200 mg capsule TAKE ONE CAPSULE BY MOUTH EVERY DAY active Not Available Not Available No t Available atorvastati n 40 mg tablet TAKE ONE TABLET BY MOUTH EVERY DAY AT BEDTIME 08/09 completed Not Available Not Available Not Available methocarbam ol 500 mg tablet TAKE ONE TABLET BY MOUTH FOUR TIMES DAILY MAY CAUSE DROWSINES S active Not Available Not Available No t Available buspirone 5 mg tablet Take 5 mg by oral route. 2023 active Not Available Not Available Not Avai lable metformin 500 mg tablet 1000 mg by oral route. active Not Available Not Available No t Available atorvastati n 20 mg tablet TAKE ONE TABLET BY MOUTH EVERY DAY active Not Available Not Available No t Available benzonatate 200 mg capsule Take 1 capsule 3 times a day by oral route as needed for 7 days. 08/09 completed Not Available Not Available Not Available Celestone Soluspan 6 mg/mL suspension for injection Take 9 mg every day by injection route for 1 day. 09/05 completed Not Available Not Available Not Available sucralfate 1 gram tablet TAKE 1 TABLET BY ORAL ROUTE EVERY 12 HOURS ON AN EMPTY STOMACH ON WAKING AND AT BEDTIME 02/06 completed Not Available Not Available Not Available prednisone 20 mg tablet TAKE ONE TABLET BY MOUTH ONCE DAILY FOR 5 DAYS DIRECTED --TAKE WITH FOOD-- 08/09 completed Not Available Not Available Not Available naproxen 250 mg tablet Take 250 mg by oral route. 11/06 completed Not Available Not Available Not Available cyanocobala min (vit B-12) 1,000 mcg tablet Take 1 tablet every day by oral route as directed for 90 days. 2022 active Not Available Not Available Not Avai lable Zyrtec 10 mg tablet Take 1 tablet every day by oral route for 30 days. 2022 active Not Available Not Available Not Avai lable clopidogrel 75 mg tablet TAKE ONE TABLET BY MOUTH EVERY DAY active Not Available Not Available No t Available sulfamethox azole 800 mg-trimetho prim 160 mg tablet TAKE ONE TABLET BY MOUTH EVERY TWELVE HOURS FOR 7 DAYS -- FINISH ALL MEDICINE -- 02/06 completed Not Available Not Available Not Available aspirin 81 mg tablet,katheryn yed release 81 mg by oral route. 02/12 completed Not Available Not Available Not Available triamcinolo ne acetonide 0.1 % topical cream APPLY TOPICALLY TO THE AFFECTED AREA(S) TWICE DAILY TO RASH NEEDED. USE FOR three WEEKS AND take 1 WEEK break. REPEAT. AVOID USE ON underarms , groin, AND face. active Not Available Not Available No t Available ketorolac 30 mg/mL (1 mL) injection solution 30 mg by injection route. 02/11 completed Not Available Not Available Not Available Nexium 20 mg capsule,del ayed release Take 1 capsule every day by oral route. 08/09 completed Not Available Not Available Not Available citalopram 20 mg tablet Take 1 tablet twice a day by oral route for 90 days. 2023 active Not Available Not Available Not Avai lable famotidine 20 mg tablet TAKE 1 TABLET BY MOUTH EVERY 12 HOURS FOR 5 DAYS 02/06 completed Not Available Not Available Not Available Protonix 40 mg intravenous solution 40 mg by intraven. route. 02/13 completed Not Available Not Available Not Available benzonatate 100 mg capsule TAKE ONE CAPSULE BY MOUTH THREE TIMES DAILY NEEDED FOR cough -SWALLOW WHOLE. DO NOT CRUSH OR CHEW- 02/06 completed Not Available Not Available Not Available metformin 1,000 mg tablet TAKE ONE TABLET BY MOUTH TWICE DAILY active Not Available Not Available No t Available buspirone 10 mg tablet TAKE 1/2 TABLET BY MOUTH TWICE DAILY 11/06 completed Not Available Not Available Not Available lisinopril 10 mg tablet TAKE ONE TABLET BY MOUTH EVERY DAY active Not Available Not Available No t Available promethazin e 25 mg/mL injection solution 25 mg by injection route. 02/11 completed Not Available Not Available Not Available potassium chloride 20 mEq/L in 0.9 % sodium chloride intravenous 1000 mL by intraven. route. 02/13 completed Not Available Not Available Not Available omeprazole 20 mg capsule,del ayed release TAKE ONE CAPSULE BY MOUTH EVERY DAY active Not Available Not Available No t Available aspirin 81 mg chewable tablet 1 tablet by oral route. active Not Available Not Available No t Available metoprolol succinate ER 25 mg tablet,exte nded release 24 hr Take 1 tablet every day by oral route at bedtime. 2023 active Not Available Not Available Not Avai lable testosteron e cypionate 200 mg/mL intramuscul ar oil Inject 0.5 mL every week by intramusc ular route as directed for 90 days. 08/09 completed Not Available Not Available Not Available ibuprofen 600 mg tablet TAKE ONE TABLET BY MOUTH THREE TIMES DAILY --TAKE WITH FOOD-- active Not Available Not Available No t Available methylpredn isolone 4 mg tablets in a dose pack TAKE ACCORDING TO PACKAGE INSTRUCTI ONS --TAKE WITH FOOD-- -- FINISH ALL MEDICINE -- 08/09 completed Not Available Not Available Not Available dicyclomine 10 mg capsule TAKE ONE CAPSULE BY MOUTH FOUR TIMES DAILY NEEDED FOR abdominal pain 08/09 completed Not Available Not Available Not Available Sudogest 60 mg tablet 60 mg by oral route. active Not Available Not Available No t Available amoxicillin 875 mg-potassiu m clavulanate 125 mg tablet TAKE ONE TABLET BY MOUTH EVERY TWELVE HOURS -- FINISH ALL MEDICINE -- 02/06 completed Not Available Not Available Not Available enoxaparin 40 mg/0.4 mL subcutaneou s syringe 40 mg by sub-q route. 02/13 completed Not Available Not Available Not Available dextrose 10 % in water (D10W) intravenous solution 250 mL by intraven. route. 02/13 completed Not Available Not Available Not Available escitalopra m 20 mg tablet TAKE ONE TABLET BY MOUTH EVERY DAY 08/09 completed Not Available Not Available Not Available Prilosec OTC 20 mg tablet,katheryn yed release Take 1 tablet every day by oral route for 30 days. 11/06 completed Not Available Not Available Not Available ondansetron HCl (PF) 4 mg/2 mL injection solution 4 mg by injection route. 02/11 completed Not Available Not Available Not Available BD PosiFlush Normal Saline 0.9 % injection syringe 10 mL by injection route. 02/13 completed Not Available Not Available Not Available Humalog KwikPen (U-100) Insulin 100 unit/mL subcutaneou s 1 unt by sub-q route. 02/13 completed Not Available Not Available Not Available Vitamin D3 125 mcg (5,000 unit) tablet Take 1 tablet every day by oral route as directed for 90 days. 2022 active Not Available Not Available Not Avai lable HealthyLax 17 gram oral powder packet 17 g by oral route. 02/13 completed Not Available Not Available Not Available Tradjenta 5 mg tablet 5 mg by oral route. 02/13 completed Not Available Not Available Not Available testosteron e 20.25 mg/1.25 gram per pump act.(1.62 %) transdermal gel APPLY 4 PUMPS TOPICALLY TO THE SKIN EVERY DAY DIRECTED active Not Available Not Available No t Available Invokana 100 mg tablet 300 mg by oral route. 02/13 completed Not Available Not Available Not Available morphine 2 mg/mL intravenous syringe 2 mg by intraven. route. 02/13 completed Not Available Not Available Not Available morphine 4 mg/mL intravenous syringe 4 mg by intraven. route. 02/11 completed Not Available Not Available Not Available Glyxambi 25 mg-5 mg tablet TAKE ONE TABLET BY MOUTH EVERY DAY 2023 active Not Available Not Available Not Avai lable aspirin 81 mg capsule Take 1 capsule every day by oral route for 30 days. 09/05 completed Not Available Not Available Not Available Vitals Date Recorded Body height Body mass index (BMI) Body weight Body temperature Oxygen saturation Oxygen saturation in Arterial blood by Pulse oximetry Heart rate Systolic And Diastolic Provider Name and Address Organization Details Last Updated DateTime 4 177.8 cm 30 kg/m2 69563.5 1 g 97.5 [degF] 98 % 98 % 80 /min 120/78 mm[Hg] Lizbethjessica Louie [facility] & [place] 4 17:01:32 Date Recorded Body height Body mass index (BMI) Body weight Body temperature Oxygen saturation Oxygen saturation in Arterial blood by Pulse oximetry Heart rate Systolic And Diastolic Provider Name and Address Organization Details Last Updated DateTime 4 177.8 cm 30.2 kg/m2 75073.2 g 98.6 [degF] 98 % 98 % 90 /min 130/90 mm[Hg] Lizbeth Louie [facility] & [place] 4 16:29:33 Date Recorded Body height Body mass index (BMI) Body weight Body temperature Oxygen saturation Oxygen saturation in Arterial blood by Pulse oximetry Heart rate Systolic And Diastolic Provider Name and Address Organization Details Last Updated DateTime 4 177.8 cm 30.1 kg/m2 97992.4 g 98.7 [degF] 97 % 97 % 76 /min 118/84 mm[Hg] Lizbeth Louie [facility] & [place] 4 15:05:54 Date Recorded Body height Body mass index (BMI) Body weight Body temperature Oxygen saturation Oxygen saturation in Arterial blood by Pulse oximetry Heart rate Systolic And Diastolic Provider Name and Address Organization Details Last Updated DateTime 3 177.8 cm 30.4 kg/m2 97548.5 8 g 97.7 [degF] 96 % 96 % 87 /min 150/82 mm[Hg] Alina Goldberg [facility] & [place] 3 15:38:31 Date Recorded Body height Body mass index (BMI) Body weight Oxygen saturation Oxygen saturation in Arterial blood by Pulse oximetry Heart rate Provider Name and Address Organization Details Last Updated DateTime 3 177.8 cm 30.4 kg/m2 45435.5 8 g 98 % 98 % 66 /min Jennifer Solis [facility] & [place] 13:44:16 Social History Question Answer Notes LastModified by [employer] Details LastModified Time Tobacco Smoking Status Never Smoker Liv cordova, [facility] & [place] 01/29/2023 09:55:27 Do You Have An Advance Directive? No [email or web address] Information not available 09/05/2023 Are You Blind Or Do You Have Difficulty Seeing? No [email or web address] Information not available 09/05/2023 What Was The Date Of Your Most Recent Tobacco Screening? 08/09/2023 [email or web address] Information not available 09/05/2023 Sex: Male Functional Status Question Answer Note LastModified by [employer] Details LastModified Time Do you use any illicit or recreational drugs? No Information not available 01/29/2023 Do you or have you ever used any other forms of tobacco or nicotine? No [email or web address] Information not available 09/05/2023 What is your level of alcohol consumption? Occasional Information not available 01/29/2023 What is your exercise level? Occasional [email or web address] Information not available 09/05/2023 Mental Status None recorded. Family History Relationship Description Onset Age of this Age Resolved Age Notes LastModified by Organization Details LastModified Time Mother Anxiety disorder [email or web address] Not available 01/29 10:00:28 Mother Epilepsy Not availab le 01/29/2024 14:18:58 Father Coronary atherosclero sis [email or web address] Not available 01/29 10:00:49 Father Diabetes mellitus Not available 01/28 14:18:48 Unspecified Relation Peripheral arterial disease [email or web address] Not available 01/29 10:01:30 Brother Malignant neoplastic disease [email or web address] Not available 01/29 10:01:20 Medical History Condition Response Anxiety Disorder Y Vision or Eye Problems Y Psychiatric/Mental Health Condition Y Neurological Problems Y Diabetes Y Back Problems Y Reflux/GERD Y Heart Disease Y Hypertension Y Immunizations Vaccine Type Date Status Note Provider Nam e and Address Organization Details Recorded Time COVID-19 vaccine, vector-nr, rS-Ad26, PF, 0.5 mL 1 completed MANE KHADRA null, [place] [facility] [place] [facility] [place] 02/14/2023 15:47:40 Hep A, adult 8 completed MANE KHADRA [place], [place] [facility] [facility] [place] 02/14/2023 15:47:40 Influenza, split virus, quadrivalent, PF 7 completed MANE KHADRA [place] [facility] 02/14/2023 15:47:40 Influenza, split virus, quadrivalent, PF 6 completed MANE KHADRA [place] [facility] [facility] [place] 02/14/2023 15:47:40 zoster recombinant 3 completed Alina Goldberg null, [place] - [facility] [place] [facility] [place] 05/07/2023 15:32:18 zoster recombinant 4 completed Lizbeth Louie null, [place] - [facility] [place] [facility] [place] 09/24/2023 16:30:03 Past Encounters Encounter ID Performer Location Encounter Start Date Encounter Closed Date Diagnosis/Indication Diagnosis SNOMED-CT Code Diagnosis ICD10 Code Diagnosis Note [id number] Fariha Goddard in, [employer] [facility] [address] [facility] [address] [place] [address] 02/06/2023 13:25:15 02/06/2023 14:12:18 Adult health examination 135095800 Z00.00 Will check complete bloodwork. Will call with results.Co unseled on dietary modificati ons and healthy eating habits.Cou nseled on decreasing stress levels,Rec ommend yearly eye exams Thyroid di sorder screening 284386806 Z13.29 Screening for malignant neoplasm of colon 062650617 Z12.11 He is up to date on colonoscop y. Will request records from [facility] for colonoscop ies. Screening for malignant neoplasm of prostate 713843113 Z12.5 Type 2 melvin betes mellitus 20708163 E11.9 Pain of ri ght elbow joint 7656662490 1857752 M25.521 Tylenol/Ib uprofen as needed.Ice . Rest.Will send for an xray.Will call with results. Late ejaculation 3381026 8 N53.11 Restless legs 60736482 G 25.81 [id number] Farihavalentine Goddard [address] [address] 02/07/2023 14:40:02 02/07/2023 14:51:45 [id number] Luis Villanueva MD [address] 3 02/11/2023 10:04:58 02/11/2023 10:19:57 Abdominal pain 65189764 R10.9 To ER for labs and CT of his abdomen. IV fluids and IV antiemetic s. [id number] [place] [address] 02/14/2023 15:44:29 02/14/2023 16:00:24 History of small bowel obstruction 2895113560 60849837 Z87.19 Continue liquid diet. Advance as tolerated. Follow up in 2 months or PRN if condition changes. [id number] Fariha HayesYael [address] [address] 03/29/2023 08:15:30 03/29/2023 08:33:42 Abnormal testosterone 586947510 R89.1 [id number] Fariha HayesYael [address] [address] 05/07/2023 15:19:38 05/07/2023 15:57:20 Cough 34723105 R05.9 Viral uppe r respiratory tract infection 684082730 J06.9 Humidifier at night.Take medication as directed.N niranjan saline rinses.Cou nseled patient on red flags/conc erns and when to go to ER.If symptoms persist or worsen RTC. [id number] [place]ha [place] [address] [place] [address] 08/09/2023 13:37:00 08/09/2023 14:02:24 Allergic reaction 560985727 T78.40XA [id number] Vinay Smith MD [facility] [address] [place] [address] 09/05/2023 16:12:52 09/09/2023 10:50:28 Anxiety 33798255 F41.9 Restart citalapram at 40 mg divided into 20 mg BID due to drowsy SE's from the 40 mg dose [id number] Vinay Smith MD [facility] [address] [place] [address] 09/24/2023 15:37:11 09/24/2023 16:53:49 Pain radiating to left leg 260669385 M79.605 Exam is not concerning for DVT, however it would be reasonable to r/o any arterial insufficie ncy. Refer for lower extremity doppler [id number] Vinay Smith MD [facility] [address] [place] [address] 11/07/2023 14:43:55 11/07/2023 15:50:43 Type 2 diabetes mellitus 42864262 E11.9 Check a1C, Will refill Metformin 1000mg BID, continue Glyxambi 25-5 Hyperlipidemia 99949380 E78.5 Obtain lipid profile, Will refill Atorvastat in, Anxiety 65235714 F41.9 Continue Buspirone 5 mg BID, continue citalopram 20mg BID Vitamin B1 2 deficiency (non anemic) 39753685 E53.8 Will check B12 and folate Degenerati on of lumbar intervertebral disc 01870730 M51.36 Continue Ibuprofen 600 mg 3x as needed. F/U with Dr. Wledon Essential hypertension 54205770 I10 Refill Lisinopril 10 mg 1x daily, refill Metoprolol ER 25 1x daily Gastroesop hageal reflux disease 795638467 K21.9 Continue Omeprazole 20mg will refill #90 Male hypogonadism 241436 06 E29.1 Will check testostero ne and PSA, Continue testostero ne 1.6% gel pump 4 pumps a day Coronary arteriosclerosis 02219130 I25.10 Refill Clopidogre l 75 mg 1x daily. Health Concerns Section Related Observation LastModified by Organization Detai ls LastModified Time None Recorded Concern Status LastModified by Organization Details LastModified Time None Recorded Advance Directives Directive N: Payers Insurance Date Sequence Insurance Name Policy Number Policy Sanderson Covered Member ID Sanderson Member ID Guarantor Name 01/29/2024 2 MEDICAID[facility] CHO[facility] - FFS/TRADITIONA L Vinay Alarcno [id number] Vinay Alarcon 01/29/2024 1 [id number] MED[place]LUE PL[place] (MEDICARE REPLACEMENT HMO) [id number] Vinay Alarcon [id number] Vinay Alarcon Notes Date Note Type Note Provider Name and Address Organization Details Recorded Time 05/07/2023 text/html patient presents to clinic for cough, congestion, increased sinus drainage, and headache. He denies any chest pain or SOB. Denies any productive cough. Symptoms started yesterday. Denies any nausea/vomiting/di arrhea. Fariha Johnson, HOGSHEAD STRIPPER [address] , [place], [address], [facility] 05/07/2023 15:55:15 08/09/2023 text/html patient presents to clinic for a rash on his back and arms. He states he went to the grocery store and when he came home he noticed it was itchy and burning. Denies any angioedema. Denies any SOB. Fariha Johnson APRN [address] , [place], [address], [facility] 08/09/2023 15:20:22 09/05/2023 text/html Former pt of Fariha's who presents rather urgently due to running out of his citalopram. He states he has been on 20 mg BID (apparently the 40 mg pill taken once daily made him too sleepy but he does fine with the 20 mg taken BID). Unbeknownst to him, he states his script was called in for only once a day and given only 90 pills. He states he did not notice the change until he was about to run out of meds which he did 4 days ago. States he does not know why the script was changed and that he was not given any indication there was to be a change. Vinay Smith MD [address], [place], [address], [facility] 09/06/2023 12:55:31 09/24/2023 text/html Pt presents c/o left leg pain x 3 weeks. States it first started in his calf then moved up to the back of his thigh, then into his left buttock. He describes the pain as crampy in nature. Denies any recent trauma or injury. Is concerned about the possibility of clots. Has a h/o a heart stint Vinay Smith MD [address], [place], [address], [facility] 09/25/2023 08:16:46 11/07/2023 text/html 53 year old Male wioth multiple medical problems, presents for F/U. Has recently been evaluated for his back injury and leg pain. He was last seen on September 24. He has seen a supervisory training specialist and had doppler ultrasound done on left lower extremity, results had shown no clots at that time. He was diagnosed with degenerative disc disease with pain management. A surgical option was mentioned but he refused and fluoroscopy guided injections were started. The injections have not helped with the pain. The patient also reports having been in the hospital for 2 days during August for a bowel issue. Vinay Smith MD [address], [place], [address], [facility] [place] 11/08/2023 08:45:52
--- OUTSIDE RECORDS SUMMARY | 2025-03-08 14:04 | XMS_ITS | Referral Summary ---
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
--- OUTSIDE RECORDS SUMMARY | 2025-03-08 15:04 | XMS_ITS | CCD ---
Author Organization Unknown Care Team Providers Care Modeling Director Name Role Phone Unavailable Primary Care Provider Unavailabl e Unavailable Chronic Care Management Unavaila ble Summary Purpose DataExchange Insurance Providers Payer name Policy type / Coverage type Covered democrat ID Effective Begin Date Effective End Date [facility] [id number] Unknown Unknown Family History Family History data not found Medication Administered No Medication Administered data Reason For Visit No Reason For Visit data Medical Equipment No Medical Equipment data Advance Directives No Advance Directive data
[2025-03-08 15:58] LABS: Alanine Aminotransferase 27 U/L (12-78); Albumin Level 4.3 g/dl (3.5-5.0); Albumin/Globulin Ratio 1.9 (1.1-1.8); Alkaline Phosphatase 93 U/L (38-126); Anion Gap 15.2 mEq/L (5-15); Aspartate Amino Transferase 22 U/L (17-59); Bilirubin,Total 1.0 mg/dl (0.2-1.3); Blood Urea Nitrogen 18 mg/dl (9-20); Calcium 9.5 mg/dl (8.4-10.2); Carbon Dioxide 25 mmol/L (22.0-30.0); Chloride 106 mmol/L (98-107); Cholesterol 92 mg/dl (140-200); Creatinine,Serum 0.60 mg/dl (0.66-1.25); Estimated Glomerular Filt Rate 141 ml/min (>60); GFR (African American) 171 ML/MIN (>60); Globulin 2.3 g/dL (1.3-3.2); Glucose 149 mg/dl (74-100); HDL Cholesterol 38 mg/dl (40-60); Potassium 4.2 mmoL/L (3.5-5.1); Sodium 142 mmol/L (136-145); Total Protein,Serum 6.6 g/dl (6.3-8.2); Triglycerides 81 mg/dl (30-150)
[2025-03-08 18:25] LABS: Hemoglobin A1C 8.2 % (4.0-6.0)
== END 2025-03-08 23:59 | disposition home or self-care (01) ==
LOC: LAB 13:57
PROVIDERS: PCP Nurse Practitioner Family; Visit Provider Emergency Medicine
DX: E11.9 Type 2 diabetes mellitus without complications (principal); I25.10 Atherosclerotic heart disease of native coronary artery without angina pectoris
CPT/HCPCS: 36415; 80053; 80061; 83036

== ENCOUNTER 2025-03-26 20:11 | Emergency (ER) | payer MEDICARE, MEDICAID, SELFPAY ==
--- OUTSIDE RECORDS SUMMARY | 2025-03-01 13:45 | XMS_ITS | Encounter Summary ---
Author Organization [facility] Address [address] [place] [address] Care Team Providers Care Media Law Faculty Member Name Role Phone Hannah Turner APRN Primary Care Provider + [phone] Reason for Visit * Reason Comments Coronary [...] Description 03/01/2025 1:45 PM EDT Office Visit [facility] [address] [place] [address] Silva Jordan MD [address] [place] [address] Precordial chest pain (Primary Dx); Atherosclerosis of [place] coronary artery, unspecified whether angina present, unspecified whether [place] or transplanted heart; Obstructive sleep apnea; Type [...] artery disease --Remote LAD stent, data deficit --[facility] with widely patent stent 2018 -- Low risk stress test 01/24/[address] [facility] Allergies Allergen Reactions Remeron [Mirtazapine] Other (See [...] Asperger's syndrome Asthma Athscl heart disease of [place] coronary artery w/o ang pctrs Blockage of [...] Precordial chest pain (Primary) 2. Atherosclerosis of [place] coronary artery, unspecified whether angina present, unspecified whether [place] or transplanted heart - Lipid Panel; Future [...] up. Jocelyne Jordan MD Cardiology and Sleep [facility] 03/01/2025 Please note that this explicitly [...] Description 08/30/2025 1:45 PM EST Office Visit [facility] [address] [place] [address] Silva Jordan MD [address] [place] [address] documented as of this encounter Procedures Procedure Name Priority Date/Time Associated Diagnosis Comments ECG 12-LEAD Routine 03/01/2025 2:09 PM EDT Precordial chest pain documented in this encounter Results * Hemoglobin A1c (03/08/2025) Blood us Silva Jordan MD LAB BLOOD ORDERABLES Final R esult [facility]
[address] [place] [address], [place] [phone] * Comprehensive Metabolic Panel (03/08/2025) Blood Silva Jordan MD LAB BLOOD ORDERABLES Final R esult Performing Organization Address City/[facility]/ZIP Co de Phone Number [facility]
[address] [place] [address], [place] [phone] * Lipid Panel (03/08/2025) Blood Silva Jordan MD LAB BLOOD ORDERABLES Final R esult Performing Organization Address [facility]/ZIP Co de Phone Number [facility]
[address] [place] [address], * ECG 12-LEAD (03/01/2025 2:09 PM EDT) [...] --Remote LAD stent, data deficit --LHC at [facility] with widely patent stent 2018 -- Low risk stress test 01/24/[address] [facility] Allergies Allergen Reactions Remeron [Mirtazapine] Other (See [...] Asperger's syndrome Asthma Athscl heart disease of [place] coronary artery w/o ang pctrs Blockage of [...] Precordial chest pain (Primary) 2. Atherosclerosis of [place] coronary artery, unspecified whether anginapresent, unspecified whether [place] or transplanted heart - Lipid Panel; Future [...] up. Jocelyne Jordan MD Cardiology and Sleep [facility] 03/01/2025 Please note that this explicitly [...] chest pain- Primary Precordial pain Atherosclerosis of [place] coronary artery, unspecified whether angina present, unspecified whether [place] or transplanted heart Obstructive sleep apnea Obstructive sleep apnea (adult) (pediatric) Type 2 diabetes mellitus without complication, without long-term current use of insulin documented in this encounter Care Teams Media Law Faculty Member Relationship Specialty Start Date End Date Hannah Turner APRN [address] [id number] PCP - General Internal Medicine 07/06/24 documented as of this encounter
[2025-03-26 20:12] VITALS: BP 137/80; PULSE 66; RESP 16; TEMP 36.4; O2SAT 96; BMI 28.7
--- NOTE | 2025-03-26 20:12 | ECG_ITS ---
APPROVED REPORT Exam: Resting ECG HR:68 bpm ECG Measurements Heart Rate 68 AXES [place] 189 P 45 QRSd 94 QRS -1 QT 380 T 3 QTc 397 Conclusion SINUS RHYTHM NORMAL ECG UNCONFIRMED REPORT Electronically signed by : Abisai Willis, 03/26/2025 23:27:55
--- OUTSIDE RECORDS SUMMARY | 2025-03-26 20:25 | XMS_ITS | Clinical Summary ---
Author Organization [facility] Address [address] [place] [address] Care Team Providers Care Two Needle Machine Operator Name Role Phone Melisa Lilly DDS Unavailable + Isis Burroughs Unavailable Unavail able Osiris Chu Primary Care Provider [phone] Allergies Active Allergy Reactions Criticality Noted Date [...] 1972 [facility]-Depression Screening 1972 [facility]-HIV Screening 1972 [facility]-Medicare Annual Wellness (AWV) 1972 [facility]-/Child/Adol SDOH Screenings 1972 [facility]- SDOH Screenings 1990 [...] 2) 2022 Dental Oral Exam 10/21/2022 04/19/2022 [id number] Vaccine (2 - season) 2024 05/03/2021 Dental [...] Recently Relevant to Health Maintenance Results * [place] Hepatitis C Antibody (08/13/2018 8:01 PM EST) Pathologist [facility] Hepatitis C Ab NEGATIVE Reference Range: Negative SUNQUEST 08/13/2018 8:01 PM EST 08/13/2018 8:36 PM EST us Historical Provider LAB BLOOD ORDERABLES Mitzi rafia Result SUNQUEST from Last 3 Months or Most Recently Relevant to Health Maintenance Insurance [place] [facility] MEDICARE Care Teams Two Needle Machine Operator Relationship Specialty Start Date End Date Osiris Chu PA [address] [place] [address] PCP - General 10/01/22 Melisa Lilly DDS [address] [place] [address] Dentist Dentist 07/18/22 Isis Burroughs [place] 07/18/22
--- OUTSIDE RECORDS SUMMARY | 2025-03-26 20:25 | XMS_ITS | Encounter Summary ---
Author Organization [facility] Address [address] [id number] Care Team Providers Care Copy Operator Name Role Phone Hannah Turner APRN Primary Care Provider + [phone] Encounter Details Date Type Department Care Team (Late st Contact Info) Description 02/25/2025 Telephone [facility] [address] [address] Silva Jordan MD [address] [place] [address] Social History Tobacco Use Types Packs/Day Years Used Date Smoking Tobacco: Never Passive Smoke Exposure: Never Smokeless Tobacco: Never Alcohol Use Standard Drinks/Week Comments Yes 0 (1 standard drink = 0.6 oz pur e alcohol) occasionally per week Sex and Gender Information Value Date Recorded Sex Assigned at Not on file Legal Sex Male 1:48 PM EDT Gender Identity Not on file Sexual Orientation Not on file documented as of this encounter Miscellaneous Notes * Telephone Encounter - Diamond Bran RegSched Rep - 02/25/2025 9:46 AM EDT Summary: REQ'D LABS AND OV FROM PCP REQUESTED LABS AND LAST OV NOTE FROM MILDRED TURNER APRN'S OFFICE ON 02/25 @ 9:46AM documented in this encounter Plan of Treatment Upcoming Encounters Date Type Department Care Team (Late st Contact Info) Description 08/30/2025 1:45 PM EST Office Visit [facility] [address] [phone] Silva Jordan MD [address] [address] documented as of this encounter Visit Diagnoses Not on filedocumented in this encounter Care Teams Copy Operator Relationship Specialty Start Date End Date Hannah Turner APRN [address] [place] [address] [facility] [address] PCP - General Internal Medicine 07/06/24 documented as of this encounter
--- OUTSIDE RECORDS SUMMARY | 2025-03-26 20:25 | XMS_ITS | Encounter Summary ---
Author Organization [facility] Address [address] [place] [address] Care Team Providers Care Citrix Architect Name Role Phone Hannah Turner APRN Primary Care Provider [phone] Encounter Details Date Type Department Care Team (Latest Contact Info) Description 03/01/2025 Travel Social History Tobacco Use Types Packs/Day Years [...] on file documented as of this encounter Plan of Treatment Upcoming Encounters Date Type Department Care Team (Late st Contact Info) Description 08/30/2025 1:45 PM EST Office Visit [facility] CARDIOLOG[facility] [address] [place] [address] Silva Jordan MD [address] [place] [address] documented as of this encounter Visit Diagnoses Not on filedocumented in this encounter Care Teams Citrix Architect Relationship Specialty Start Date End Date Hannah Turner APRN [address] [place] [address] [place] [address] PCP - General Internal Medicine 07/06/24 documented as of this encounter
--- OUTSIDE RECORDS SUMMARY | 2025-03-26 20:25 | XMS_ITS | Clinical Summary ---
Author Organization [facility] Address [address] [place] [address] Care Team Providers Care Clay Processing Labourer Name Role Phone Hannah Turner APRN Primary Care Provider + [phone] Allergies Active Allergy Reactions Criticality Noted Date Comments Diphenhydramine Hcl Irritability Medium 04/10/2017 IV only Mirtazapine Other (See Comments) High 04/10/2017 seizure Medications aspirin 81 MG EC tablet Take 1 tablet by mouth Daily. Active omeprazole (priLOSEC) 20 MG capsule Take 1 capsule by mouth Daily. Active cetirizine (zyrTEC) 10 MG tablet Take 1 tablet by mouth Daily. Active clopidogrel (PLAVIX) 75 MG tablet 3 Active Glyxambi 25-5 MG tablet Take 1 tablet by mouth Daily. 3 Active metFORMIN (GLUCOPHAGE) 1000 MG tablet TAKE ONE TABLET BY MOUTH TWICE DAILY with breakfast AND SUPPER 3 Active metoprolol succinate XL (TOPROL-XL) 25 MG 24 hr tablet TAKE ONE TABLET BY MOUTH EVERY DAY AT BEDTIME 90 tablet 3 4 Active atorvastatin (LIPITOR) 20 MG tablet TAKE ONE TABLET BY MOUTH EVERY DAY 90 tablet 1 4 Active cyclobenzaprine (FLEXERIL) 10 MG tablet Take 1 tablet by mouth As Needed. 4 Active lisinopril (PRINIVIL,ZESTR IL) 10 MG tablet Take 1 tablet by mouth Daily. for high blood pressure Active methocarbamol (ROBAXIN) 500 MG tablet Take 1 tablet by mouth. 4 Active busPIRone (BUSPAR) 5 MG tablet Take 1 tablet by mouth 2 (Two) Times a Day. Active Vraylar 1.5 MG capsule capsule Take 1 capsule by mouth Daily. 4 Active albuterol sulfate HFA 108 (90 Base) MCG/ACT inhaler Inhale 2 puffs Every 4 (Four) Hours As Needed for Wheezing. Active escitalopram (LEXAPRO) 20 MG tablet Take 1 tablet by mouth Daily. Active celecoxib (CeleBREX) 200 MG capsule Take 1 capsule by mouth Daily. Active Testosterone 1.62 % gel APPLY 4 PUMPS TOPICALLY TO THE SKIN EVERY DAY DIRECTED 3 03/01/20 Discontinu ed(*Therap y completed) vitamin B-12 (CYANOCOBALAMIN ) 1000 MCG tablet Take 1 tablet by mouth Daily. 03/01/20 Discontinu ed(*Therap y completed) Cholecalciferol 25 MCG (1000 UT) tablet Take 1 tablet by mouth Daily. 03/01/20 Discontinu ed(*Therap y completed) ibuprofen (ADVIL,MOTRIN) 600 MG tablet Take 1 tablet by mouth 2 (Two) Times a Day. 03/01/20 Discontinu ed(*Therap y completed) ALPRAZolam (XANAX) 0.25 MG tablet Take 1 tablet by mouth 2 (Two) Times a Day As Needed for Anxiety. 03/01/20 Discontinu ed(*Therap y completed) simethicone (MYLICON) 125 MG chewable tablet Chew 1 tablet Every 6 (Six) Hours As Needed for Flatulence. 03/01/20 Discontinu ed(*Therap y completed) Active Problems Problem Noted Date Diagnosed Date Obstructive sleep apnea 07/08/2023 Overview (07/08/2023): Good compliance and control. Benefiting from PAP therapy and plan to continue. Assessment & Plan (07/07/2024 1:52 PM EST): Severe. Intolerant of CPAP. Hypertension, essential 01/28/2023 Precordial chest pain 10/18/2022 Assessment & Plan (10/18/2022 9:31 PM EST): Cardiac studies reviewed. This is most likely context of chondritis and some anxiety by history. Seems to be stable by his description. We will follow Anxiety 10/18/2022 Assessment & Plan (10/18/2022 9:31 PM EST): Makes chest pain assessment difficult Atherosclerosis of [place] coronary artery 2022 Overview (01/28/2023): Plan stress testing for further evaluation. Assessment & Plan (07/07/2024 1:52 PM EST): Stable and on medical therapy. EKG reviewed and no changes. Orders: ECG 12 Lead Assessment & Plan (10/18/2022 9:31 PM EST): Heart catheterization reviewed. History of LAD stenting. Encounters Date Type Department Care Team Description 03/09/2025 Results Follow-Up [facility] C[facility] [address] [address] Silva Jordan MD 03/01/2025 1:45 PM EDT Office Visit [facility] [address] [address] Silva Jordan MD Precordial chest pain (Primary Dx); Atherosclerosis of [place] coronary artery, unspecified whether angina present, unspecified whether [place] or transplanted heart; Obstructive sleep apnea; Type 2 diabetes mellitus without complication, without long-term current use of insulin 03/01/2025 Patient rounding ([facility] only) [facility] [address] [address] Silva Jordan MD 03/01/2025 Travel 02/25/2025 Telephone [facility] [address] [address] Silva Jordan MD from Last 3 Months Family History Medical History Relation Name Comments Cancer Brother Other Brother AUTO-IMMUNE Coronary artery disease Father Other Father PAD Anxiety disorder Mother Relation Name Status Comments Brother Alive Father Alive Mother Alive Sister Alive Social History Tobacco Use Types Packs/Day Years [...] Pulse 74 03/01/2025 1:29 PM EDT Temperature 36.4 C (97.5 F) 04/10/2017 1:53 PM EDT Respiratory Rate 20 04/10/2017 1:53 PM EDT Oxygen Saturation 96% 03/01/2025 1:29 PM EDT Inhaled Oxygen Concentration - - Weight 92.5 kg (204 lb) 03/01/2025 1:29 PM EDT Height 177.8 cm (5' 10 ) 03/01/2025 1:29 PM EDT Body Mass Index 29.27 03/01/2025 1:29 PM EDT Plan of Treatment Upcoming Encounters Date Type Department Care Team (Late st Contact Info) Description 08/30/2025 1:45 PM EST Office Visit [facility] [address] [phone] Silva Jordan MD [address] [place] [address] Health Maintenance Due Date Last Done Comments DIABETIC EYE EXAM 1982 DIABETIC FOOT EXAM 1982 URINE MICROALBUMIN-CREATININ E RATIO (uACR) 1982 Hepatitis B (1 of 3 - 19+ 3- dose series) 1991 Pneumococcal Vaccine 50+ (1 of 2 - PCV) 1991 TDAP/TD VACCINES (1 - Tdap) 1991 COLOGUARD 2017 COLON CANCER SCREENING 5 YEA R SIGMOIDOSCOPY 2017 COLONOSCOPY 2017 [address]ECTAL CANCER SCREENING 2017 CT COLONOGRAPHY 2017 FECAL OCCULT BLOOD TEST 2017 FIT Testing (1 year) 2017 ANNUAL WELLNESS VISIT 04/10/2017 HEPATITIS C SCREENING 04/10/2017 COVID-19 Vaccine (2 - season) 04/26/202403/2021 INFLUENZA VACCINE 05/26/2025 06/03/2024, , 06/06/2016 HEMOGLOBIN A1C 09/08/2025 03/08/2025 ZOSTER VACCINE Completed 08/28/2023, 03/25/2023 Procedures Procedure Name Priority Date/Time Associated Diagnosis Comments HEMOGLOBIN A1C Routine 03/08/2025 Atherosclerosis of [place] coronary artery, unspecified whether angina present, unspecified whether red lake or transplanted heart Type 2 diabetes mellitus without complication, without long-term current use of insulin LIPID PANEL Routine 03/08/2025 Atherosclerosis of [place] coronary artery, unspecified whether angina present, unspecified whether red [place] or transplanted heart Type 2 diabetes mellitus without complication, without long-term current use of insulin COMPREHENSIVE METABOLIC PANEL Routine 03/08/2025 Atherosclerosis of [place] coronary artery, unspecified whether angina present, unspecified whether red [place] or transplanted heart Type 2 diabetes mellitus without complication, without long-term current use of insulin ECG 12-LEAD Routine 03/01/2025 2:09 PM EDT Precordial chest pain from Last 3 Months Results * Hemoglobin A1c (03/08/2025) Blood us Silva Jordan MD LAB BLOOD ORDERABLES Final R esult Performing Organization Address [facility]/ZIP Co de Phone Number [facility]
[address] [place] [address], * Lipid Panel (03/08/2025) Blood us Silva Jordan MD LAB BLOOD ORDERABLES Final R esult [facility]
[address] [id number], [place] [phone] * Comprehensive Metabolic Panel (03/08/2025) Blood us Silva Jordan MD LAB BLOOD ORDERABLES Final R esult [facility]
[address] [place] [address], * ECG 12-LEAD (03/01/2025 2:09 PM EDT) [...] artery disease --Remote LAD stent, data deficit --C at [facility] with widely patent stent 2018 -- Low risk stress test 01/24/2023 at [facility] Allergies Allergen Reactions Remeron [Mirtazapine] [...] Asperger's syndrome Asthma Athscl heart disease of [place] coronary artery w/o ang pctrs Blockage of coronary artery of heart Diabetes mellitus GERD (gastroesophageal reflux disease) Hiatal hernia A CHILD High blood pressure Peptic ulcer Pure hypercholesterolemia Sleep apnea Past Surgical History: Procedure Laterality Date CORONARY ANGIOPLASTY WITH STENT PLACEMENT CORONARY STENT PLACEMENT 2016 EAR TUBES 1975 HERNIA REPAIR 1977 TONSILLECTOMY [...] Date/Time: 03/01/2025 2:09 PM Performed by: Silva Jrodan MD Authorized by: Silva Jordan MD Comparison: [...] Precordial chest pain (Primary) 2. Atherosclerosis of [place] coronary artery, unspecified whether anginapresent, unspecified whether red [place] or transplanted heart - Lipid Panel; Future [...] up. Jocelyne Jordan MD Cardiology and Sleep [facility] 03/01/2025 Please note that this explicitly excludes time spent on other separatebillable services such as performing procedures or test interpretation,when applicable. This note was created using dictation software which occasionallytranscribes nonsensical phrases. Please contact the provider if anyclarification is needed. us Silva Jordan MD ECG ORDERABLES Final Result from Last 3 Months Insurance MEDICAID [place] AETNA MEDICARE ADVANTAGE Care Teams Clay Processing Labourer Relationship Specialty Start Date End Date Hannah Turner APRN [address] [place] [phone] PCP - General Internal Medicine 07/06/24
--- OUTSIDE RECORDS SUMMARY | 2025-03-26 20:25 | XMS_ITS | Encounter Summary ---
Author Organization [facility] Address [address] [place] [address] Care Team Providers Care Granulating Machine Operator Name Role Phone Hannah Turner APRN Primary Care Provider [phone] Encounter Details Date Type Department Care Team (Late st Contact Info) Description 03/09/2025 Results Follow-Up [facility] [address] [phone] Silva Jordan MD [address] [place] [address] Social History Tobacco Use Types Packs/Day [...] Description 08/30/2025 1:45 PM EST Office Visit [facility] [address] [phone] Silva Jordan MD [address] [place] [address] documented as of this encounter Visit Diagnoses Not on filedocumented in this encounter Care Teams Granulating Machine Operator Relationship Specialty Start Date End Date Hannah Turner APRN [address] [place], [place] [address], [place] [address] PCP - General Internal Medicine 07/06/24 documented as of this encounter
--- OUTSIDE RECORDS SUMMARY | 2025-03-26 20:25 | XMS_ITS | Referral Summary ---
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
--- OUTSIDE RECORDS SUMMARY | 2025-03-26 20:25 | XMS_ITS | Encounter Summary ---
Author Organization [facility] Address [address] [place] [id number] Care Team Providers Care Entry Level Account Manager Name Role Phone Hannah Turner APRN Primary Care Provider + [phone] Encounter Details Date Type Department Care Team (Late st Contact Info) Description 03/01/2025 Patient rounding ([facility] [facility] [address] [place] [address] Silva Jordan MD [address] [place] [address] Social History Tobacco Use Types Packs/Day [...] on file documented as of this encounter Progress Notes * Denise Calvillo RegSched Rep - 03/01/2025 4:14 PM EDT ..My name is Nandini Boland and I am the Carbon Rod Inserter for [facility] Cardiology [facility]. I would like to thank you for being a loyal patient. If you do not mind I would like to ask you a few questions about your recent visit with us. Please feel free to reply if you wish to provide us with feedback on your first visit with our practice. First, could you tell me what went well with your recent visit? Secondly, we are always looking for ways to make our patients' experiences even better. Do you haveany recommendations on ways we may improve? Finally, overall were you satisfied with your first visit to us as a [facility]? In the next few days, you will be receiving a Patient Experience Survey. Thank you for taking the time to answer a few questions today. I hope you have a good day. documented in this encounter Plan of Treatment Upcoming Encounters Date Type Department Care Team (Late st Contact Info) Description 08/30/2025 1:45 PM EST Office Visit [facility] [address] [phone] Silva Jordan MD [address] [address] documented as of this encounter Visit Diagnoses Not on filedocumented in this encounter Care Teams Entry Level Account Manager Relationship Specialty Start Date End Date Hannah Turner APRN [address] [facility] [address] [facility] [address] [place] [address] PCP - General Internal Medicine 07/06/24 documented as of this encounter
--- OUTSIDE RECORDS SUMMARY | 2025-03-26 20:25 | XMS_ITS | Clinical Summary ---
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
--- NOTE | 2025-03-26 21:08 | XR_ITS ---
PROCEDURE INFORMATION: Exam: XR Chest Exam date and time: 03/26/2025 9:23 PM Age: 55 years old Clinical indication: Dyspnea TECHNIQUE: Imaging protocol: Radiologic exam of the chest. Views: 1 view. COMPARISON: CR XR CHEST 2V 01/15/2025 2:14 PM FINDINGS: Lungs: Unremarkable. No consolidation. Pleural spaces: Unremarkable. No pleural effusion. No pneumothorax. Heart/Mediastinum: Unremarkable. No cardiomegaly. Bones/joints: Unremarkable. IMPRESSION: No acute findings.
--- NOTE | 2025-03-26 21:10 | ED_ITS ---
Discharge Plan Disposition Patient Disposition: Home, Self-Care Prescriptions Prescriptions: No Action ciprofloxacin HCl 500 mg tablet 500 mg PO BID 7 Days Qty: 14 0RF methocarbamol 500 mg tablet 500 mg PO QID PRN (Reason: muscle spasm) Qty: 120 0RF simethicone 500 mg capsule 500 mg PO BID PRN (Reason: abdominal distention) Qty: 30 0RF lisinopril 10 mg tablet See Rx Instructions .ROUTE .COMPLEX Qty: 90 2RF Dose Instruction: TAKE ONE TABLET BY MOUTH EVERY DAY FOR HIGH BLOOD PRESSURE Rx Instructions: TAKE ONE TABLET BY MOUTH EVERY DAY FOR HIGH BLOOD PRESSURE clopidogrel 75 mg tablet See Rx Instructions .ROUTE .COMPLEX Qty: 90 1RF Dose Instruction: TAKE ONE TABLET BY MOUTH EVERY DAY Rx Instructions: TAKE ONE TABLET BY MOUTH EVERY DAY buspirone 5 mg tablet See Rx Instructions .ROUTE .COMPLEX Qty: 180 1RF Dose Instruction: TAKE ONE TABLET BY MOUTH TWICE DAILY Rx Instructions: TAKE ONE TABLET BY MOUTH TWICE DAILY omeprazole 20 mg capsule,delayed release(DR/EC) See Rx Instructions .ROUTE .COMPLEX Qty: 90 1RF Dose Instruction: TAKE ONE CAPSULE BY MOUTH EVERY DAY Rx Instructions: TAKE ONE CAPSULE BY MOUTH EVERY DAY metformin 1,000 mg tablet See Rx Instructions .ROUTE .COMPLEX Qty: 180 1RF Dose Instruction: TAKE ONE TABLET BY MOUTH TWICE DAILY Rx Instructions: TAKE ONE TABLET BY MOUTH TWICE DAILY metoprolol succinate 25 mg tablet extended release 24 hr See Rx Instructions .ROUTE .COMPLEX Qty: 90 1RF Dose Instruction: TAKE ONE TABLET BY MOUTH EVERY DAY AT BEDTIME Rx Instructions: TAKE ONE TABLET BY MOUTH EVERY DAY AT BEDTIME atorvastatin 20 mg tablet See Rx Instructions .ROUTE .COMPLEX Qty: 90 1RF Dose Instruction: TAKE ONE TABLET BY MOUTH EVERY DAY Rx Instructions: TAKE ONE TABLET BY MOUTH EVERY DAY celecoxib 200 mg capsule See Rx Instructions .ROUTE .COMPLEX Qty: 180 1RF Dose Instruction: TAKE ONE CAPSULE BY MOUTH TWICE DAILY --TAKE WITH FOOD-- Rx Instructions: TAKE ONE CAPSULE BY MOUTH TWICE DAILY --TAKE WITH FOOD-- Glyxambi 25-5 mg tablet See Rx Instructions .ROUTE .COMPLEX Qty: 90 1RF Dose Instruction: TAKE ONE TABLET BY MOUTH EVERY DAY Rx Instructions: TAKE ONE TABLET BY MOUTH EVERY DAY Vraylar 1.5 mg capsule See Rx Instructions .ROUTE .COMPLEX Qty: 30 0RF Dose Instruction: TAKE ONE CAPSULE BY MOUTH EVERY DAY Rx Instructions: TAKE ONE CAPSULE BY MOUTH EVERY DAY escitalopram oxalate 20 mg tablet See Rx Instructions .ROUTE .COMPLEX Qty: 30 0RF Dose Instruction: TAKE ONE TABLET BY MOUTH EVERY DAY Rx Instructions: TAKE ONE TABLET BY MOUTH EVERY DAY albuterol sulfate [Ventolin HFA] 18 GM HFA aerosol inhaler 1 - 2 puffs inhalation Q4-6H PRN (Reason: Shortness Of Breath Or Wheezing) cetirizine [Zyrtec] 10 MG tablet 10 mg PO DAILY aspirin 81 MG tablet,delayed release (DR/EC) 81 mg PO DAILY ondansetron 4 mg tablet,disintegrating 4 mg PO Q6H PRN (Reason: nausea and vomiting) 4 Days Qty: 16 0RF Referrals Follow up/Referrals: Hannah Turner APRN [Primary Care Provider, Medical] - See instructions Aleksandr Feldman MD [Staff Physician, Cardiology] - See instructions Activity Restrictions/Add. Instructions Additional Instructions/Restrictions: No obvious emergent medical condition identified today please follow-up with Dr. Feldman or your primary care doctor within the next few days to week. Clinical Impressions Clinical Impression: Chest pain Print Language Print Language: Uzbek Discharge ED Provider: Peña Willis [facility] General Chief Complaint: Chest Pain Stated Complaint: Chest Pain Time Seen by Provider: 03/26/25 20:53 Mode of Arrival: Ambulatory Source of Information: Patient and Spouse Description of Symptoms (Recalled from ER Triage Doc. by RN): pt presents to the Ed d/t complaints of chest ain starting aroun 1900. pt took two aspirin prior to arrival. pt has hx of stents. pt states pain started while he was sitting around. History of Present Illness HPI narrative: Patient is a 55-year-old with a known history of coronary disease who presents today with multiple complaints. States he has been having chest discomfort headaches dizziness some abdominal discomfort intermittent dyspnea etc. Main reason he came to the emergency department was for his chest pain which started about 2 hours ago. Substernal nonradiating no diaphoresis associated with it. Given the fact that he had a stent in the past they were concerned and came to the emergency department. Aspirin was administered prior to arrival. Related Data Home Medications ?Medication ?Instructions ?Recorded ?Confirmed albuterol sulfate 90 mcg/actuation 1 - 2 puffs inhalat ion Q4-6H PRN 12/03/18 01/05/25 aerosol inhaler (Ventolin HFA) Shortness Of Breath Or Wheezing aspirin 81 mg tablet,delayed 81 mg PO DAILY HEART HEAL TH 12/03/18 01/05/25 release cetirizine 10 mg tablet (Zyrtec) 10 mg PO DAILY Allerg y symptoms 12/03/18 01/05/25 Previous Rx's ?Medication ?Instructions ?Recorded methocarbamol 500 mg tablet 500 mg PO QID PRN muscle s pasm 01/21/24 #120 tabs ondansetron 4 mg disintegrating 4 mg PO Q6H PRN nausea and 04/30/24 tablet vomiting 4 days #16 tabs simethicone 500 mg capsule 500 mg PO BID PRN abdominal 05/15/24 distention #30 caps lisinopril 10 mg tablet See Rx Instructions .Route 0 09/11/24 .COMPLEX #90 tabs buspirone 5 mg tablet See Rx Instructions .Route 0 12/07/24 .COMPLEX #180 tabs clopidogrel 75 mg tablet See Rx Instructions .Route 0 12/07/24 .COMPLEX #90 tabs metformin 1,000 mg tablet See Rx Instructions .Route 0 12/07/24 .COMPLEX #180 tabs omeprazole 20 mg capsule,delayed See Rx Instructions . Route 12/07/24 release .COMPLEX #90 caps ciprofloxacin HCl 500 mg tablet 500 mg PO BID 7 days # 14 tabs 01/05/25 metoprolol succinate 25 mg See Rx Instructions .Route 01/05/25 tablet,extended release 24 hr .COMPLEX #90 tabs atorvastatin 20 mg tablet See Rx Instructions .Route 0 02/05/25 .COMPLEX #90 tabs celecoxib 200 mg capsule See Rx Instructions .Route 0 02/05/25 .COMPLEX #180 caps empagliflozin 25 mg-linagliptin 5 See Rx Instructions .Route 02/05/25 mg tablet (Glyxambi) .COMPLEX #90 tabs cariprazine 1.5 mg capsule See Rx Instructions .Route 03/10/25 (Vraylar) .COMPLEX #30 caps escitalopram oxalate 20 mg tablet See Rx Instructions .Route 03/10/25 .COMPLEX #30 tabs Allergies Allergy/AdvReac Type Severity Reaction Status Date / Time diphenhydramine (From Allergy Unknown AGITATION Verified 01/05/25 13:49 BENADRYL) mirtazapine (From REMERON) Allergy Unknown Unknown Verified 01/05/25 13:49 allergy reaction [facility] Disclaimer: The information contained in this section may have been updated after the patient was seen, as this information can be updated by other users. Medical History AMBROCIO (obstructive sleep apnea) Asperger disorder Sleep apnea Major depressive disorder Generalized anxiety disorder Bowel incontinence Increased bowel frequency Bowel obstruction Depression Anxiety Hypertension Bulging disc Type 2 diabetes mellitus without complications CAD (coronary artery disease) Asperger syndrome Surgical History Stented coronary artery History of right heart catheterization History of tonsillectomy and adenoidectomy H/O hernia repair Family History Family/Other Coronary artery disease Heart attack Cancer neck Epilepsy Autism Diabetes Stroke Social History Smoking Status: Never smoker alcohol intake: never substance use type: denies use current occupational status: other Travel in the last 8 weeks?: None current occupational exposures/hazards: No caffeine: Yes Have you lived/traveled outside US in past 30 days?: No Contact w/someone who lives/traveled outside US past 30 days?: No Exposure to someone with infectious disease in past 14 days?: No Do you have a fever (greater than 100.4 F or 38 C)?: No Have you tested positive for COVID-19?: No Exposed to someone with COVID-19 in past 14 days?: No Do you have a sore throat?: No Do you have a cough?: No Do you have any weakness?: No Do you have any diarrhea?: No Are you experiencing any unusual bleeding?: No Do you have any muscle aches/pain?: No Do you have any abdominal pain?: No Are you experiencing loss of taste or smell?: No Other Medical History Have you received the Flu Vaccine for this season: Yes Have you received the Pneumonia Vaccine: No ROS Obtained: Yes All systems reviewed & no additional complaints except as documented Physical Exam General General appearance: alert and in no apparent distress Respiratory Respiratory exam: Present normal lung sounds bilaterally and respiratory distress Cardiovascular Cardiovascular exam: Present regular rate and normal rhythm Neurological Exam Neurological exam: Present alert and oriented X3 HEART Score HEART Score HEART Score assessment performed?: Yes History (anamnesis): Slightly suspicious ECG: Non-specific disturbance Age: 45-65 years Risk factors: Atherosclerosis history Troponin: </= normal limit HEART Score: 4 Critical Care Critical Care Time Critical Care Time: No Medical Decision Making Nabil Inquiry Pt receiving controlled substance: No Vital Signs Vital Signs: 03/26/25 20:12 Temperature 97.6 F Temperature Source Oral Pulse Rate [Right Radial] 66 Respiratory Rate 16 Blood Pressure [Right Arm] 137/80 Blood Pressure Mean [Right Arm] 99 Blood Pressure Position [Right Arm] Supine 02 Sat by Pulse Oximetry 96 Oxygen Delivery Method Room Air Lab Data Lab results reviewed: Yes I reviewed the patient's lab results. Labs: Lab Results 03/26/25 21:00: WBC 6.5, RBC 5.00, Hgb 15.4, Hct 45.0, MCV 90.0, MCH 30.8, MCHC 34.2, RDW 12.1, Plt Count 186, MPV 11.2 H, Neut % (Auto) 60.7, Lymph % (Auto) 30.3, [place] % (Auto) 7.7, Eos % (Auto) 0.8, Baso % (Auto) 0.3, Neut # (Auto) 3.9, Lymph # (Auto) 2.0, [place] # (Auto) 0.5, Eos # (Auto) 0.1, Baso # (Auto) 0.0, Sodium 139, Potassium 3.8, Chloride 105, Carbon Dioxide 30, Anion Gap 7.8, BUN 18, Creatinine 0.70, Estimated Creat Clear 157, Estimated GFR 118, Est GFR ( Amer) 143, Glucose 189 H, Calcium 9.2, Total Bilirubin 1.0, AST 31, ALT 30, Alkaline Phosphatase 96, Troponin I < 0.01, Total Protein 6.4, Albumin 4.3, Globulin 2.1, Albumin/Globulin Ratio 2.0 H 03/26/25 21:00 03/26/25 21:00 Response Orders (Tests/Meds): ED MEDICATIONS Generic Name Dose Route Start Last Admin Trade Name Freq PRN Reason Stop Dose Admin Lactated Ringer's 1,000 mls @ 999 mls/hr 03/26/25 21:15 03/26/25 21:20 Lactated Ringer's 1000 Ml Bag IV 03/26/25 22:15 999 mls/hr .Q1H1M CRUZ Administration Discontinued Medications Generic Name Dose Route Start Last Admin Trade Name Eula PRN Reason Stop Dose Admin Acetaminophen 1,000 mg 03/26/25 21:08 03/26/25 21:19 Acetaminophen 500mg Tab PO 03/26/25 21:09 1,000 mg ONCE ONE Administration ORDERS Category Date Time Status CXR --portable [XR chest portable] Stat Exams 03/26/25 21:08 Completed CBC w/Auto Diff [Complete Blood Count Auto Diff] Stat Lab 03/26/25 21:00 Completed CMP [Comprehensive Metabolic Panel] Stat Lab 03/26/25 21:00 Completed D-Dimer Stat Lab 03/26/25 21:00 Received Lipase Stat Lab 03/26/25 21:00 Received Rapid PCR Covid and Flu A/B Stat Lab 03/26/25 21:15 Received Trop I [Troponin I] Stat Lab 03/26/25 21:00 Completed Troponin I Q3H Lab 03/27/25 00:15 Ordered Troponin I Q3H Lab 03/27/25 03:15 Ordered ECG Data Tracing #1: Attestation: I reviewed this ECG and interpreted as documented below: ECG Narrative: Ventricular rate of 68 normal sinus rhythm no acute ischemic changes noted there are Q waves in the lead III with inverted T waves which are consistent with old EKGs no significant conduction abnormalities noted MDM Narrative Medical Decision Narrative: Patient is a very well-appearing 55-year-old with above history and physical presenting with 2 hours within the onset of his chest pain. Will require serial troponins EKG is nonischemic and consistent with old EKGs will obtain D-dimer and utilize risk criteria to rule out PE. Other labs and chest x-ray are being performed. Oral Tylenol and IV fluids have been administered. Patient does have a constellation of symptoms which could be viral COVID and flu test have been sent as well. Patient and the patient's specifically asked not to be held for serial troponins as they were aware of this process his first that is negative I will discuss that with him after additional set of blood test. Reassessment 10:11 PM chest x-ray was performed which I personally interpreted which shows no evidence of any acute pathology. Labs unremarkable patient very well-appearing on my reassessment clinically he has no symptoms at this point I discussed with him the possibility of getting a second troponin given the fact that he came in within several hours of symptoms however he declined this and would like to go home. He understands that there is some diagnostic uncertainty given the duration but that it is unlikely that he has acute coronary syndrome. He will follow-up closely outpatient with cardiology. He was discharged in stable condition.
[2025-03-26] MEDS: ACETAMINOPHEN 500MG TAB 1000 MG PO (21:19)
[2025-03-26] MEDS: LACTATED RINGERS 1000ML 1,000 ML 999 ML IV (21:20)
[2025-03-26 21:21] LABS: Coronavirus 19, PCR Not Detected (NotDetected); Influenza A, PCR Not Detected (NotDetected); Influenza B, PCR Not Detected (NotDetected)
--- OUTSIDE RECORDS SUMMARY | 2025-03-26 21:25 | XMS_ITS | CCD ---
Author Organization Unknown Care Team Providers Care Nursery Worker Name Role Phone Unavailable Primary Care Provider Unavailabl e Unavailable Chronic Care Management Unavaila ble Summary Purpose DataExchange Insurance Providers Payer name Policy type / Coverage type Covered republican ID Effective Begin Date Effective End Date [facility] [id number] Unknown Unknown Family History Family History data not found Medication Administered No Medication Administered data Reason For Visit No Reason For Visit data Medical Equipment No Medical Equipment data Advance Directives No Advance Directive data
--- OUTSIDE RECORDS SUMMARY | 2025-03-26 21:25 | XMS_ITS | CCD ---
Author Organization Unknown Care Team Providers Care Senior Data Warehouse Developer Name Role Phone Unavailable Primary Care Provider Unavailabl e Unavailable Chronic Care Management Unavaila ble Summary Purpose DataExchange Insurance Providers Payer name Policy type / Coverage type Covered libertarian ID Effective Begin Date Effective End Date [facility] [id number] Unknown Unknown Family History Family History data not found Medication Administered No Medication Administered data Reason For Visit No Reason For Visit data Medical Equipment No Medical Equipment data Advance Directives No Advance Directive data
[2025-03-26 21:38] LABS: Hematocrit 45.0 % (42.0-52.0); Hemoglobin 15.4 g/dL (14.1-18.0); Immature Granulocytes % 0.2 %; Mean Corpuscular HGB Conc 34.2 g/dL (31.8-35.4); Mean Corpuscular Hemoglobin 30.8 pg (27.0-31.2); Mean Corpuscular Volume 90.0 fl (80-94); Nucleated Red Blood Cells % 0 %; Platelet Count 186 K/mm3 (142-424); Red Blood Count 5.00 M/mm3 (4.60-6.20); Red Cell Distribution Width-SD 39.8 fL; White Blood Count 6.5 K/mm3 (4.8-10.8)
[2025-03-26 21:48] LABS: Alanine Aminotransferase 30 U/L (12-78); Albumin Level 4.3 g/dl (3.5-5.0); Albumin/Globulin Ratio 2.0 (1.1-1.8); Alkaline Phosphatase 96 U/L (38-126); Anion Gap 7.8 mEq/L (5-15); Aspartate Amino Transferase 31 U/L (17-59); Bilirubin,Total 1.0 mg/dl (0.2-1.3); Blood Urea Nitrogen 18 mg/dl (9-20); Calcium 9.2 mg/dl (8.4-10.2); Carbon Dioxide 30 mmol/L (22.0-30.0); Chloride 105 mmol/L (98-107); Creatinine Clearance Estimated 157 mL/min (50-200); Creatinine,Serum 0.70 mg/dl (0.66-1.25); Estimated Glomerular Filt Rate 118 ml/min (>60); GFR (African American) 143 ML/MIN (>60); Globulin 2.1 g/dL (1.3-3.2); Glucose 189 mg/dl (74-100); Potassium 3.8 mmoL/L (3.5-5.1); Sodium 139 mmol/L (136-145); Total Protein,Serum 6.4 g/dl (6.3-8.2)
[2025-03-26 22:03] LABS: Troponin I < 0.01 ng/ml (0.00-0.034)
[2025-03-26 22:21] VITALS: BP 132/83; PULSE 64; RESP 16; TEMP 36.7; O2SAT 98
[2025-03-26 22:24] LABS: D-Dimer 0.43 ug/mL (0.0-0.5)
[2025-03-26 22:50] LABS: Lipase 164 U/L (23-300)
== END 2025-03-26 22:22 | disposition home or self-care (01) ==
PROVIDERS: Emergency Provider Student in an Organized Health Care Education/Training Program; PCP Nurse Practitioner Family
DX: R07.89 Other chest pain (principal)
CPT/HCPCS: 71045; 80053; 83690; 84484; 85025; 85378; 87636; 93005; 96360; 99284; J7120

== ENCOUNTER 2025-04-09 07:54 | Outpatient (CLI) | payer MEDICARE, MEDICAID, SELFPAY ==
--- OUTSIDE RECORDS SUMMARY | 2025-03-01 13:45 | XMS_ITS | Encounter Summary ---
Author Organization [facility] Address [address] [place] [address] Care Team Providers Care Pelt Shearer Name Role Phone Hannah Turner APRN Primary Care Provider + [phone] Reason for Visit * Reason Comments Coronary Artery Disease Pt states he is here today for follow up CAD. No chest pain, SOA, palpitations or dizziness. Sleep Apnea Pt states he was jermaine eduled to have the Inspire implant but had to cancel due to 's illness. Encounter Details Date Type Department Care Team (Late st Contact Info) Description 03/01/2025 1:45 PM EDT Office Visit [facility] [address] [place] [address] Silva Jordan MD [address] [place] [address] Precordial chest pain (Primary Dx); Atherosclerosis of picayune coronary artery, unspecified whether angina present, unspecified whether picayune or transplanted heart; Obstructive sleep apnea; Type 2 diabetes mellitus without complication, without long-term current use of insulin Social History Tobacco Use Types Packs/Day Years Used Date Smoking Tobacco: Never Passive Smoke Exposure: Never Smokeless Tobacco: Never Tobacco Cessation:Counseling Given: Yes Alcohol Use Standard Drinks/Week Comments Yes 0 (1 standard drink = 0.6 oz pur e alcohol) occasionally per week Sex and Gender Information Value Date Recorded Sex Assigned at Not on file Legal Sex Male 1:48 PM EDT Gender Identity Not on file Sexual Orientation Not on file documented as of this encounter Last Filed Vital Signs Vital Sign Reading Time Taken Comments Blood Pressure 118/60 03/01/2025 1:29 PM EDT Pulse 74 03/01/2025 1:29 PM EDT Temperature - - Respiratory Rate - - Oxygen Saturation 96% 03/01/2025 1:29 PM EDT Inhaled Oxygen Concentration - - Weight 92.5 kg (204 lb) 03/01/2025 1:29 PM EDT Height 177.8 cm (5' 10 ) 03/01/2025 1:29 PM EDT Body Mass Index 29.27 03/01/2025 1:29 PM EDT documented in this encounter Progress Notes * Silva Jordan MD - 03/01/2025 1:45 PM EDTAssociated Order(s): ECG 12 Lead Post-Procedure Diagnose(s): Precordial chest pain Images from the original note were not included. [facility] Provider Note Date: 03/01/2025 Name: Vinay Alarcon : 1970 PCP: Hannah Turner APRN Chief Complaint Patient presents with Coronary Artery Disease Pt states he is here today for follow up CAD. No chest pain, SOA, palpitations or dizziness. Sleep Apnea Pt states he was scheduled to have the Inspire implant but had to cancel due to 's illness. Subjective History of Present Illness Vinay Alarcon is a 54 year old male who presents in clinic for a six month follow up CAD. Approximately two weeks ago relates he had an episode of chest pain thirty minutes after eating. Symptoms MS region, sharp without radiation. Lasted approximately 45 minutes. Has felt well since then. EKG obtained and reviewed today. No chest pain with exertion. Has been out in the heat working. In the process of rescheduling his appointment for the Inspire for his severe AMBROCIO. Coronary artery disease --Remote LAD stent, data deficit --[facility] at [facility] with widely patent stent 2018 -- Low risk stress test 01/24/2023 at [facility] Allergies Allergen Reactions Remeron [Mirtazapine] Other (See Comments) seizure Benadryl [Diphenhydramine Hcl] Irritability IV only Current Outpatient Medications: albuterol sulfate HFA 108 (90 Base) MCG/ACT inhaler, Inhale 2 puffs Every 4 (Four) Hours As Needed for Wheezing., Disp: , Rfl: aspirin 81 MG EC tablet, Take 1 tablet by mouth Daily., Disp: , Rfl: atorvastatin (LIPITOR) 20 MG tablet, TAKE ONE TABLET BY MOUTH EVERY DAY, Disp: 90 tablet, Rfl: 1 busPIRone (BUSPAR) 5 MG tablet, Take 1 tablet by mouth 2 (Two) Times a Day., Disp: , Rfl: celecoxib (CeleBREX) 200 MG capsule, Take 1 capsule by mouth Daily., Disp: , Rfl: cetirizine (zyrTEC) 10 MG tablet, Take 1 tablet by mouth Daily., Disp: , Rfl: clopidogrel (PLAVIX) 75 MG tablet, , Disp: , Rfl: cyclobenzaprine (FLEXERIL) 10 MG tablet, Take 1 tablet by mouth As Needed., Disp: , Rfl: escitalopram (LEXAPRO) 20 MG tablet, Take 1 tablet by mouth Daily., Disp: , Rfl: Glyxambi 25-5 MG tablet, Take 1 tablet by mouth Daily., Disp: , Rfl: lisinopril (PRINIVIL,ZESTRIL) 10 MG tablet, Take 1 tablet by mouth Daily. for high blood pressure, Disp: , Rfl: metFORMIN (GLUCOPHAGE) 1000 MG tablet, TAKE ONE TABLET BY MOUTH TWICE DAILY with breakfast AND SUPPER, Disp: , Rfl: methocarbamol (ROBAXIN) 500 MG tablet, Take 1 tablet by mouth., Disp: , Rfl: metoprolol succinate XL (TOPROL-XL) 25 MG 24 hr tablet, TAKE ONE TABLET BY MOUTH EVERY DAY AT BEDTIME, Disp: 90 tablet, Rfl: 3 omeprazole (priLOSEC) 20 MG capsule, Take 1 capsule by mouth Daily., Disp: , Rfl: Vraylar 1.5 MG capsule capsule, Take 1 capsule by mouth Daily., Disp: , Rfl: Past Medical History: Diagnosis Date Anxiety Asperger's syndrome Asthma Athscl heart disease of picayune coronary artery w/o ang pctrs Blockage of coronary artery of heart Diabetes mellitus GERD (gastroesophageal reflux disease) Hiatal hernia A CHILD High blood pressure Peptic ulcer Pure hypercholesterolemia Sleep apnea Past Surgical History: Procedure Laterality Date CORONARY ANGIOPLASTY WITH STENT PLACEMENT CORONARY STENT PLACEMENT 2015 EAR TUBES 1975 HERNIA REPAIR 1977 TONSILLECTOMY AND ADENOIDECTOMY 1975 Family History Problem Relation Age of Onset Anxiety disorder Mother Coronary artery disease Father Other Father PAD Cancer Brother Other Brother AUTO-IMMUNE Social History Socioeconomic History Marital status: Number of children: 1 Tobacco Use Smoking status: Never Passive exposure: Never Smokeless tobacco: Never Vaping Use Vaping status: Never Used Substance and Sexual Activity Alcohol use: Yes Comment: occasionally per week Drug use: No Sexual activity: Defer Objective Vital Signs: BP 118/60 (BP Location: Right arm, Patient Position: Sitting, Cuff Size: Adult) Pulse 74 Ht 177.8 cm (70 ) Wt 92.5 kg (204 lb) SpO2 96% BMI 29.27 kg/m?? Estimated body mass index is 29.27 kg/m?? as calculated from the following: Height as of this encounter: 177.8 cm (70 ). Weight as of this encounter: 92.5 kg (204 lb). Physical Exam Constitutional: Appearance: Normal appearance. He is well-developed. HENT: Head: Normocephalic and atraumatic. Eyes: General: No scleral icterus. Pupils: Pupils are equal, round, and reactive to light. Cardiovascular: Rate and Rhythm: Normal rate and regular rhythm. Heart sounds: Normal heart sounds. No murmur heard. Pulmonary: Breath sounds: Normal breath sounds. No wheezing or rhonchi. Musculoskeletal: Right lower leg: No edema. Left lower leg: No edema. Skin: Capillary Refill: Capillary refill takes less than 2 seconds. Coloration: Skin is not cyanotic. Nails: There is no clubbing. Neurological: Mental Status: He is alert and oriented to person, place, and time. Motor: No weakness. Gait: Gait normal. Psychiatric: Mood and Affect: Mood normal. Behavior: Behavior is cooperative. Thought Content: Thought content normal. ECG 12 Lead Date/Time: 03/01/2025 2:09 PM Performed by: Silva Jordan MD Authorized by: Silva Jordan MD Comparison: compared with previous ECG from 07/05/2024 Similar to previous ECG Comparison to previous ECG: Inferior Q waves now gone Rhythm: sinus rhythm Rate: normal Conduction: conduction normal QRS axis: normal Other findings: poor R wave progression Clinical impression: abnormal EKG Assessment and Plan ASSESSMENTS AND ORDERS Diagnoses and all orders for this visit: 1. Precordial chest pain (Primary) 2. Atherosclerosis of picayune coronary artery, unspecified whether angina present, unspecified whether picayune or transplanted heart - Lipid Panel; Future - Comprehensive Metabolic Panel; Future - Hemoglobin A1c; Future 3. Obstructive sleep apnea 4. Type 2 diabetes mellitus without complication, without long-term current use of insulin - Lipid Panel; Future - Comprehensive Metabolic Panel; Future - Hemoglobin A1c; Future Other orders - ECG 12 Lead Other orders ECG 12 Lead PLAN -chest pain chronic and stable, EKG reiviewed and stable as well. -updating choelsterol panel, will see if needs higher dose of lipitor. -update A1c with labs -good weight loss with glyxambi -BP well controlled, continue current meds. Follow Up Return in about 6 months (around 09/01/2025) for Next scheduled follow up. Jocelyne Jordan MD Cardiology and Sleep [facility] 03/01/2025 Please note that this explicitly excludes time spent on other separate billable services such as performing procedures or test interpretation, when applicable. This note was created using dictation software which occasionally transcribes nonsensical phrases. Please contact the provider if any clarification is needed. documented in this encounter Plan of Treatment Upcoming Encounters Date Type Department Care Team (Late st Contact Info) Description 08/30/2025 1:45 PM EST Office Visit [facility] [address] [place] [address] Silva Jordan MD [address] [place] [address] documented as of this encounter Procedures Procedure Name Priority Date/Time Associated Diagnosis Comments ECG 12-LEAD Routine 03/01/2025 2:09 PM EDT Precordial chest pain documented in this encounter Results * Hemoglobin A1c (03/08/2025) Blood us Silva Jordan MD LAB BLOOD ORDERABLES Final R esult [facility]
[address] [place] [address], [place] [phone] * Comprehensive Metabolic Panel (03/08/2025) Blood Silva Jordan MD LAB BLOOD ORDERABLES Final R esult Performing Organization Address City/[facility]/ZIP Co de Phone Number [facility]
[address] [place] [address], [place] [phone] * Lipid Panel (03/08/2025) Blood Silva Jordan MD LAB BLOOD ORDERABLES Final R esult Performing Organization Address [facility]/ZIP Co de Phone Number [facility]
[address] [place] [address], * ECG 12-LEAD (03/01/2025 2:09 PM EDT) Narrative Taylor Johansen MA - 03/01/2025 2:09 PM EDT Silva Jordan MD 03/01/2025 2:33 PM ECG 12 Lead Date/Time: 03/01/2025 2:09 PM Performed by: Silva Jordan MD Authorized by: Silva Jordan MD Comparison: compared with previous ECG from 07/05/2024 Similar to previous ECG Comparison to previous ECG: Inferior Q waves now gone Rhythm: sinus rhythm Rate: normal Conduction: conduction normal QRS axis: normal Other findings: poor R wave progression Clinical impression: abnormal EKG Procedure Note Silva Jordan MD - 03/01/2025 1:45 PM EDT Images from the original note were not included. Cardi[facility] Provider Note Date: 03/01/2025 Name: Vinay Alarcon : 1970 PCP: Hannah Turner APRN Chief Complaint Patient presents with Coronary Artery Disease Pt states he is here today for follow up CAD. No chest pain, SOA,palpitations or dizziness. Sleep Apnea Pt states he was scheduled to have the Inspire implant but had to canceldue to 's illness. Subjective History of Present Illness Vinay Alarcon is a 54 year old male who presents in clinic for a six monthfollow up CAD. Approximately two weeks ago relates he had an episode ofchest pain thirty minutes after eating. Symptoms MS region, sharpwithout radiation. Lasted approximately 45 minutes. Has felt well sincethen. EKG obtained and reviewed today. No chest pain with exertion. Hasbeen out in the heat working. In the process of rescheduling his appointment for the Inspire for hissevere AMBROCIO. Coronary artery disease --Remote LAD stent, data deficit --LHC at [facility] with widely patent stent 2018 -- Low risk stress test 01/24/2023 at [facility] Allergies Allergen Reactions Remeron [Mirtazapine] Other (See Comments) seizure Benadryl [Diphenhydramine Hcl] Irritability IV only Current Outpatient Medications: albuterol sulfate HFA 108 (90 Base) MCG/ACT inhaler, Inhale 2 puffsEvery 4 (Four) Hours As Needed for Wheezing., Disp: , Rfl: aspirin 81 MG EC tablet, Take 1 tablet by mouth Daily., Disp: , Rfl: atorvastatin (LIPITOR) 20 MG tablet, TAKE ONE TABLET BY MOUTH EVERY DAY,Disp: 90 tablet, Rfl: 1 busPIRone (BUSPAR) 5 MG tablet, Take 1 tablet by mouth 2 (Two) Times aDay., Disp: , Rfl: celecoxib (CeleBREX) 200 MG capsule, Take 1 capsule by mouth Daily.,Disp: , Rfl: cetirizine (zyrTEC) 10 MG tablet, Take 1 tablet by mouth Daily., Disp: ,Rfl: clopidogrel (PLAVIX) 75 MG tablet, , Disp: , Rfl: cyclobenzaprine (FLEXERIL) 10 MG tablet, Take 1 tablet by mouth AsNeeded., Disp: , Rfl: escitalopram (LEXAPRO) 20 MG tablet, Take 1 tablet by mouth Daily.,Disp: , Rfl: Glyxambi 25-5 MG tablet, Take 1 tablet by mouth Daily., Disp: , Rfl: lisinopril (PRINIVIL,ZESTRIL) 10 MG tablet, Take 1 tablet by mouthDaily. for high blood pressure, Disp: , Rfl: metFORMIN (GLUCOPHAGE) 1000 MG tablet, TAKE ONE TABLET BY MOUTH TWICEDAILY with breakfast AND SUPPER, Disp: , Rfl: methocarbamol (ROBAXIN) 500 MG tablet, Take 1 tablet by mouth., Disp: ,Rfl: metoprolol succinate XL (TOPROL-XL) 25 MG 24 hr tablet, TAKE ONE TABLETBY MOUTH EVERY DAY AT BEDTIME, Disp: 90 tablet, Rfl: 3 omeprazole (priLOSEC) 20 MG capsule, Take 1 capsule by mouth Daily.,Disp: , Rfl: Vraylar 1.5 MG capsule capsule, Take 1 capsule by mouth Daily., Disp: ,Rfl: Past Medical History: Diagnosis Date Anxiety Asperger's syndrome Asthma Athscl heart disease of picayune coronary artery w/o ang pctrs Blockage of coronary artery of heart Diabetes mellitus GERD (gastroesophageal reflux disease) Hiatal hernia A CHILD High blood pressure Peptic ulcer Pure hypercholesterolemia Sleep apnea Past Surgical History: Procedure Laterality Date CORONARY ANGIOPLASTY WITH STENT PLACEMENT CORONARY STENT PLACEMENT 2015 EAR TUBES 1975 HERNIA REPAIR 1977 TONSILLECTOMY AND ADENOIDECTOMY 1975 Family History Problem Relation Age of Onset Anxiety disorder Mother Coronary artery disease Father Other Father PAD Cancer Brother Other Brother AUTO-IMMUNE Social History Socioeconomic History Marital status: Number of children: 1 Tobacco Use Smoking status: Never Passive exposure: Never Smokeless tobacco: Never Vaping Use Vaping status: Never Used Substance and Sexual Activity Alcohol use: Yes Comment: occasionally per week Drug use: No Sexual activity: Defer Objective Vital Signs: BP 118/60 (BP Location: Right arm, Patient Position: Sitting, Cuff Size:Adult) Pulse 74 Ht 177.8 cm (70 ) Wt 92.5 kg (204 lb) SpO2 96% BMI 29.27 kg/m Estimated body mass index is 29.27 kg/m as calculated from thefollowing: Height as of this encounter: 177.8 cm (70 ). Weight as of this encounter: 92.5 kg (204 lb). Physical Exam Constitutional: Appearance: Normal appearance. He is well-developed. HENT: Head: Normocephalic and atraumatic. Eyes: General: No scleral icterus. Pupils: Pupils are equal, round, and reactive to light. Cardiovascular: Rate and Rhythm: Normal rate and regular rhythm. Heart sounds: Normal heart sounds. No murmur heard. Pulmonary: Breath sounds: Normal breath sounds. No wheezing or rhonchi. Musculoskeletal: Right lower leg: No edema. Left lower leg: No edema. Skin: Capillary Refill: Capillary refill takes less than 2 seconds. Coloration: Skin is not cyanotic. Nails: There is no clubbing. Neurological: Mental Status: He is alert and oriented to person, place, and time. Motor: No weakness. Gait: Gait normal. Psychiatric: Mood and Affect: Mood normal. Behavior: Behavior is cooperative. Thought Content: Thought content normal. ECG 12 Lead Date/Time: 03/01/2025 2:09 PM Performed by: Silva Jordan MD Authorized by: Silva Jordan MD Comparison: compared with previousECG from 07/05/2024 Similar to previous ECG Comparison to previous ECG: Inferior Q waves now gone Rhythm: sinus rhythm Rate: normal Conduction: conduction normal QRS axis: normal Other findings: poor R wave progression Clinical impression: abnormal EKG Assessment and Plan ASSESSMENTS AND ORDERS Diagnoses and all orders for this visit: 1. Precordial chest pain (Primary) 2. Atherosclerosis of picayune coronary artery, unspecified whether anginapresent, unspecified whether picayune or transplanted heart - Lipid Panel; Future - Comprehensive Metabolic Panel; Future - Hemoglobin A1c; Future 3. Obstructive sleep apnea 4. Type 2 diabetes mellitus without complication, without long-termcurrent use of insulin - Lipid Panel; Future - Comprehensive Metabolic Panel; Future - Hemoglobin A1c; Future Other orders - ECG 12 Lead Other orders ECG 12 Lead PLAN -chest pain chronic and stable, EKG reiviewed and stable as well. -updating choelsterol panel, will see if needs higher dose of lipitor. -update A1c with labs -good weight loss with glyxambi -BP well controlled, continue current meds. Follow Up Return in about 6 months (around 09/01/2025) for Next scheduled follow up. Jocelyne Jordan MD Cardiology and Sleep [facility] 03/01/2025 Please note that this explicitly excludes time spent on other separatebillable services such as performing procedures or test interpretation,when applicable. This note was created using dictation software which occasionallytranscribes nonsensical phrases. Please contact the provider if anyclarification is needed. us Silva Jordan MD ECG ORDERABLES Final Result documented in this encounter Visit Diagnoses Diagnosis Precordial chest pain- Primary Precordial pain Atherosclerosis of picayune coronary artery, unspecified whether angina present, unspecified whether picayune or transplanted heart Obstructive sleep apnea Obstructive sleep apnea (adult) (pediatric) Type 2 diabetes mellitus without complication, without long-term current use of insulin documented in this encounter Care Teams Pelt Shearer Relationship Specialty Start Date End Date Hannah Turner APRN [address] [id number] PCP - General Internal Medicine 07/06/24 documented as of this encounter
--- OUTSIDE RECORDS SUMMARY | 2025-04-09 07:57 | XMS_ITS | Clinical Summary ---
Author Organization [facility] Address [address] [place] [address] Care Team Providers Care Therapist Name Role Phone Melisa Lilly DDS Unavailable + Isis Burroughs Unavailable Unavail able Osiris Chu Primary Care Provider [phone] Allergies Active Allergy Reactions Criticality Noted Date [...] 1972 [facility]-Depression Screening 1972 [facility]-HIV Screening 1972 [facility]-Medicare Annual Wellness (AWV) 1972 [facility]-Infant/Child/Adol SDOH Screenings [...] 2) 2022 Dental Oral Exam 10/21/2022 04/19/2022 [id number] Vaccine (2 - season) 2024 05/03/2021 Dental [...] Recently Relevant to Health Maintenance Results * [place] Hepatitis C Antibody (08/13/2018 8:01 PM EST) Pathologist [facility] [place] Hepatitis C Ab NEGATIVE Reference Range: Negative SUNQUEST 08/13/2018 8:01 PM EST 08/13/2018 8:36 PM EST us Zzzhistorical Provider LAB BLOOD ORDERABLES F inal Result SUNQUEST from Last 3 Months or Most Recently Relevant to Health Maintenance Insurance [place] [employer] MEDICARE Care Teams Therapist Relationship Specialty Start Date End Date Osiris Chu PA [address] [address] PCP - General 10/01/22 Melsia Lilly DDS [address] [place] [address] Dentist Dentist 07/18/22 Isis Burroughs Dent[place] 07/18/22
--- OUTSIDE RECORDS SUMMARY | 2025-04-09 07:57 | XMS_ITS | Encounter Summary ---
Author Organization [facility] Address [address] [place] [address] Care Team Providers Care Clinical Trainer Name Role Phone Hannah Turner APRN Primary Care Provider [phone] Encounter Details Date Type Department Care Team (Late st Contact Info) Description 03/09/2025 Results Follow-Up [facility] [address] [phone] Silva Jordan MD [address] [place] [address] Social History Tobacco Use Types Packs/Day [...] Description 08/30/2025 1:45 PM EST Office Visit [facility] [address] [phone] Silva Jordan MD [address] [place] [address] documented as of this encounter Visit Diagnoses Not on filedocumented in this encounter Care Teams Clinical Trainer Relationship Specialty Start Date End Date Hannah Turner APRN [address] [place], [place] [address], [place] [address] PCP - General Internal Medicine 07/06/24 documented as of this encounter
--- OUTSIDE RECORDS SUMMARY | 2025-04-09 07:57 | XMS_ITS | Encounter Summary ---
Author Organization [facility] Address [address] [place] [address] Care Team Providers Care Hot Kettle Tender Name Role Phone Hannah Turner APRN Primary Care Provider [phone] Encounter Details Date Type Department Care Team [...] Description 08/30/2025 1:45 PM EST Office Visit [facility] [address] [place] [phone] Silva Jordan MD [address] [place] [address] documented as of this encounter Visit Diagnoses Not on filedocumented in this encounter Care Teams Hot Kettle Tender Relationship Specialty Start Date End Date Hannah Turner APRN [address] [place] [address] [place] [address] PCP - General Internal Medicine 07/06/24 documented as of this encounter
--- OUTSIDE RECORDS SUMMARY | 2025-04-09 07:57 | XMS_ITS | Referral Summary ---
Author Organization [employer] ([place], [place], [place], [place]) Address [address] [id number] Care Team Providers Care Cigarette Machine Filler Name Role Phone Unavailable Primary Care Provider Unavailabl e Social History Tobacco Use Types Packs/Day Years Used Date Smoking Tobacco: Never Assessed Sex and Gender Information Value Date Recorded Sex Assigned at Not on file Legal Sex Male 8:20 AM [employer] Gender Identity Not on file Sexual Orientation Not on file Plan of Treatment Upcoming Encounters Date Type Department Care Team (Late st Contact Info) Description 06/28/2025 11:38 AM EST Hospital Encounter [facility] Surgery Department [address] [place], [place] [id number] Gilles Oswald MD [address] [place] [address] 06/28/2025 11:38 AM EST - 06/28/2025 1:35 PM EST Surgery [facility] Surgery Department [address] [place] [address] Gilles Oswald MD [address] [place] [address] INSPIRE Scheduled Procedures Name Priority Associated Diagnoses Date/Ti me INSERTION, VAGUS NERVE STIMULATOR Obstructive sleep apnea (adult) (pediatric) 06/28/2025 11:38 AM EST Insurance [place] [id number] MEDICARE PART A B [facility] MEDICAID OF [place]
--- OUTSIDE RECORDS SUMMARY | 2025-04-09 07:57 | XMS_ITS | Clinical Summary ---
Author Organization [facility] Address [address] [place] [address] Care Team Providers Care Customer Account Specialist Name Role Phone Hannah Turner APRN Primary Care Provider + [phone] Allergies Active Allergy Reactions Criticality Noted Date [...] Take 1 capsule by mouth Daily. Active albuterol sulfate HFA 108 (90 Base) MCG/ACT inhaler Inhale 2 puffs Every 4 (Four) Hours As Needed for Wheezing. Active escitalopram (LEXAPRO) 20 MG tablet Take 1 tablet by mouth Daily. Active celecoxib (CeleBREX) 200 MG capsule Take 1 capsule by mouth Daily. Active Active Problems Problem Noted Date Diagnosed Date [...] Makes chest pain assessment difficult Atherosclerosis of [place] coronary artery 2022 Overview (01/28/2023): Plan stress testing for further evaluation. Assessment & Plan (07/07/2024 1:52 PM EST): Stable and on medical therapy. EKG reviewed and no changes. Orders: ECG 12 Lead Assessment & Plan (10/18/2022 9:31 PM EST): Heart catheterization reviewed. History of LAD stenting. Encounters Date Type Department Care Team Description 03/09/2025 Results Follow-Up [facility] [address] [phone] Silva Jordan MD 03/01/2025 1:45 PM EDT Office Visit [facility] [address] [address] Silva Jordan MD Precordial chest pain (Primary Dx); Atherosclerosis of [place] coronary artery, unspecified whether angina present, unspecified whether [place] or transplanted heart; Obstructive sleep apnea; Type 2 diabetes mellitus without complication, without long-term current use of insulin 03/01/2025 Patient rounding ([facility]) [facility] [address] [address] Silva Jordan MD 03/01/2025 Travel 02/25/2025 Telephone [facility] [address] [phone] Silva Jordan MD from Last 3 Months [...] Description 08/30/2025 1:45 PM EST Office Visit [facility] [address] [place] [address] Silva Jordan MD [address] [place] [address] Health Maintenance Due Date Last Done Comments [...] 04/10/2017 HEPATITIS C SCREENING 04/10/2017 COVID-19 Vaccine ( season) 04/26/202403/2021 INFLUENZA VACCINE 05/26/2025 06/03/2024, , 06/06/2016 HEMOGLOBIN A1C 09/08/2025 03/08/2025 ZOSTER VACCINE Completed 08/28/2023, 03/25/2023 Procedures Procedure Name Priority Date/Time Associated Diagnosis Comments HEMOGLOBIN A1C Routine 03/08/2025 Atherosclerosis of [place] coronary artery, unspecified whether angina present, unspecified whether [place] or transplanted heart Type 2 diabetes mellitus without complication, without long-term current use of insulin LIPID PANEL Routine 03/08/2025 Atherosclerosis of [place] coronary artery, unspecified whether angina present, unspecified whether [place] or transplanted heart Type 2 diabetes mellitus without complication, without long-term current use of insulin COMPREHENSIVE METABOLIC PANEL Routine 03/08/2025 Atherosclerosis of [place] coronary artery, unspecified whether angina present, unspecified whether [place] or transplanted heart Type 2 diabetes mellitus without complication, without long-term current use of insulin ECG 12-LEAD Routine 03/01/2025 2:09 PM EDT Precordial chest pain from Last 3 Months Results * Hemoglobin A1c (03/08/2025) Blood Silva Jordan MD LAB BLOOD ORDERABLES Final R esult Performing Organization Address [facility] [address]/ZIP Co de Phone Number [facility]
[address] [place] [address], [place] [phone] * Lipid Panel (03/08/2025) Blood Silva Jordan MD LAB BLOOD ORDERABLES Final R esult Performing Organization Address [facility] [address]/[facility] Co de Phone Number [facility]
[address] [place] [address], [place] [phone] * Comprehensive Metabolic Panel (03/08/2025) Blood Silva Jordan MD LAB BLOOD ORDERABLES Final R esult Performing Organization Address [facility] [address]/[facility] Co de Phone Number [facility]
[address] [place] [address], [place] [phone] * ECG 12-LEAD (03/01/2025 2:09 PM EDT) [...] --Remote LAD stent, data deficit --LHC at [facility] with widely patent stent 2018 -- Low risk stress test 01/24/2023 at [facility] Allergies Allergen Reactions Remeron [Mirtazapine] Other [...] Asperger's syndrome Asthma Athscl heart disease of [place] coronary artery w/o ang pctrs Blockage of [...] Precordial chest pain (Primary) 2. Atherosclerosis of [place] coronary artery, unspecified whether anginapresent, unspecified whether [place] or transplanted heart - Lipid Panel; Future [...] up. Jocelyne Jordan MD Cardiology and Sleep [facility] 03/01/2025 Please note that this explicitly excludes time spent on other separatebillable services such as performing procedures or test interpretation,when applicable. This note was created using dictation software which occasionallytranscribes nonsensical phrases. Please contact the provider if anyclarification is needed. Silva Jordan MD ECG ORDERABLES Final Result from Last 3 Months Insurance MEDICAID [place] AETNA MEDICARE ADVANTAGE Care Teams Customer Account Specialist Relationship Specialty Start Date End Date Hannah Turner APRN [address] [place] [address] [facility] [address] PCP - General Internal Medicine 07/06/24
--- OUTSIDE RECORDS SUMMARY | 2025-04-09 07:57 | XMS_ITS | Encounter Summary ---
[facility] Organization [facility] Address [address] [id number] Care Team Providers Care Airport Maintenance Chief Name Role Phone Hannah Turner APRN Primary Care Provider [phone] Encounter Details Date Type Department Care Team (Late st Contact Info) Description 02/25/2025 Telephone [facility] [address] [address] Silva Jordan MD [address] [place] [address] Social History Tobacco Use Types Packs/Day [...] Description 08/30/2025 1:45 PM EST Office Visit [facility] [address] [phone] Silva Jordan MD [address] [address] documented as of this encounter Visit Diagnoses Not on filedocumented in this encounter Care Teams Airport Maintenance Chief Relationship Specialty Start Date End Date Hannah Turner APRN [address] [place] [address] [facility] [address] PCP - General Internal Medicine 07/06/24 documented as of this encounter
--- OUTSIDE RECORDS SUMMARY | 2025-04-09 07:57 | XMS_ITS | Clinical Summary ---
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 Gender Identity Not on file Sexual Orientation Not on file Plan of Treatment Upcoming Encounters Date Type Department Care Team (Late st Contact Info) Description 06/28/2025 11:38 AM EST Hospital Encounter [facility] [address] [place] [address] Gilles Oswald MD [address] [place], [place] [id number] 06/28/2025 11:38 AM EST - 06/28/2025 1:35 PM EST Surgery [facility] [address] [place] [address] Gilles Oswald MD [address] [place] [address] INSPIRE Scheduled Procedures Name Priority Associated Diagnoses Date/Ti me INSERTION, VAGUS NERVE STIMULATOR Obstructive sleep apnea (adult) (pediatric) 06/28/2025 11:38 AM EST Health Maintenance Due Date Last Done Comments [...] of 2) 2022 COVID-19 VACCINE (1 - season) 2024 Influenza Vaccine (#1) 2025 Insurance MEDICARE PART A B AETNA [place] AD[place] MEDICAID OF [place]
--- OUTSIDE RECORDS SUMMARY | 2025-04-09 07:57 | XMS_ITS | Encounter Summary ---
Author Organization [facility] Address [address] [place] [id number] Care Team Providers Care Client Relations Representative Name Role Phone Hannah Turner APRN Primary Care Provider + [phone] Encounter Details Date Type Department Care Team (Late st Contact Info) Description 03/01/2025 Patient rounding ([facility] only) [facility] [address] [place] [address] Silva Jordan MD [address] [place] [address] Social History Tobacco Use Types Packs/Day [...] is Nandini Boland and I am the Lip Reading Teacher for [facility]. I would like to thank you for [...] your first visit to us as a [facility]? In the next few days, you will [...] [facility] [address] [phone] Silva Jordan MD [address] [address] documented as of this encounter Visit Diagnoses Not on filedocumented in this encounter Care Teams Client Relations Representative Relationship Specialty Start Date End Date Hannah Turner APRN [address] [facility] [address] [facility] [address] [place] [address] PCP - General Internal Medicine 07/06/24 documented as of this encounter
--- OUTSIDE RECORDS SUMMARY | 2025-04-09 08:57 | XMS_ITS | CCD ---
Author Organization Unknown Care Team Providers Care Clinical Neuropsychologist Name Role Phone Unavailable Primary Care Provider Unavailabl e Unavailable Chronic Care Management Unavaila ble Summary Purpose DataExchange Insurance Providers Payer name Policy type / Coverage type Covered constitution party ID Effective Begin Date Effective End Date [facility] [id number] Unknown Unknown Family History Family History data not found Medication Administered No Medication Administered data Reason For Visit No Reason For Visit data Medical Equipment No Medical Equipment data Advance Directives No Advance Directive data
--- OUTSIDE RECORDS SUMMARY | 2025-04-09 08:57 | XMS_ITS | CCD ---
Author Organization Unknown Care Team Providers Care Transition Lead Name Role Phone Unavailable Primary Care Provider Unavailabl e Unavailable Chronic Care Management Unavaila ble Summary Purpose DataExchange Insurance Providers Payer name Policy type / Coverage type Covered republican ID Effective Begin Date Effective End Date [facility] [id number] Unknown Unknown Family History Family History data not found Medication Administered No Medication Administered data Reason For Visit No Reason For Visit data Medical Equipment No Medical Equipment data Advance Directives No Advance Directive data
[2025-04-09 12:19] LABS: C-Reactive Protein 1.7 mg/L (0-4)
== END 2025-04-09 23:59 | disposition home or self-care (01) ==
LOC: LAB 07:55
PROVIDERS: PCP Nurse Practitioner Family; Visit Provider Internal Medicine
DX: K58.2 Mixed irritable bowel syndrome (principal); K90.0 Celiac disease; R11.10 Vomiting, unspecified; R79.89 Other specified abnormal findings of blood chemistry
CPT/HCPCS: 36415; 83993; 84403; 86140; 86364

== ENCOUNTER 2025-05-19 12:44 | Outpatient (CLI) | payer MEDICARE, MEDICAID, SELFPAY ==
--- OUTSIDE RECORDS SUMMARY | 2025-05-19 12:47 | XMS_ITS | Clinical Summary ---
Author Organization [facility] Address [address] [place] [address] Care Team Providers Care Traffic Technician Name Role Phone Hannah Turner APRN Primary Care Provider + [phone] Allergies Active Allergy Reactions Criticality Noted Date [...] Makes chest pain assessment difficult Atherosclerosis of [place] coronary artery 2022 Overview (01/28/2023): Plan stress testing for further evaluation. Assessment & Plan (07/07/2024 1:52 PM EST): Stable and on medical therapy. EKG reviewed and no changes. Orders: ECG 12 Lead Assessment & Plan (10/18/2022 9:31 PM EST): Heart catheterization reviewed. History of LAD stenting. Encounters Date Type Department Care Team Description 03/09/2025 Results Follow-Up [facility] [address] [phone] Silva Jordan MD 03/01/2025 1:45 PM EDT Office Visit [facility] [address] [address] Silva Jordan MD Precordial chest pain (Primary Dx); Atherosclerosis of [place] coronary artery, unspecified whether angina present, unspecified whether [place] or transplanted heart; Obstructive sleep apnea; Type 2 diabetes mellitus without complication, without long-term current use of insulin 03/01/2025 Patient rounding ([facility] only) [facility] [address] [phone] Silva Jordan MD 03/01/2025 Travel 02/25/2025 Telephone [facility] [address] [address] Silva Jordan MD from Last 3 Months [...] [facility] [address] [place] [address] Silva Jordan MD [address] [place] [address] Health Maintenance Due Date Last Done [...] WELLNESS VISIT 04/10/2017 HEPATITIS C SCREENING 04/10/2017 INFLUENZA VACCINE 03/26/2025 06/03/2024, , 06/06/2016 HEMOGLOBIN A1C 09/08/2025 03/08/2025 ZOSTER VACCINE Completed 08/28/2023, 03/25/2023 Procedures Procedure Name Priority Date/Time Associated Diagnosis Comments HEMOGLOBIN A1C Routine 03/08/2025 Atherosclerosis of [place] coronary artery, unspecified whether angina present, unspecified whether [place] or transplanted heart Type 2 diabetes mellitus without complication, without long-term current use of insulin LIPID PANEL Routine 03/08/2025 Atherosclerosis of [place] coronary artery, unspecified whether angina present, unspecified whether [place] or transplanted heart Type 2 diabetes mellitus without complication, without long-term current use of insulin COMPREHENSIVE METABOLIC PANEL Routine 03/08/2025 Atherosclerosis of [place] coronary artery, unspecified whether angina present, unspecified whether [place] or transplanted heart Type 2 diabetes mellitus without complication, without long-term current use of insulin ECG 12-LEAD Routine 03/01/2025 2:09 PM EDT Precordial chest pain from Last 3 Months Results * Hemoglobin A1c (03/08/2025) Blood Silva Jordan MD LAB BLOOD ORDERABLES Final R esult Performing Organization Address [facility]/ZIP Co de Phone Number [facility]
[address] [place] [address], [place] [phone] * Lipid Panel (03/08/2025) Blood Silva Jordan MD LAB BLOOD ORDERABLES Final R esult Performing Organization Address [facility]/ZIP Co de Phone Number [facility]
[address] [place] [address], [place] [phone] * Comprehensive Metabolic Panel (03/08/2025) Blood Silva Jordan MD LAB BLOOD ORDERABLES Final R esult Performing Organization Address [facility] Co de Phone Number [facility]
[address] [place] [address], [place] [phone] * ECG 12-LEAD (03/01/2025 2:09 PM EDT) [...] --Remote LAD stent, data deficit --LHC at [facility] with widely patent stent 2018 -- Low risk stress test 01/24/2023 at [facility] Allergies Allergen Reactions Remeron [Mirtazapine] Other [...] Asperger's syndrome Asthma Athscl heart disease of [place] coronary artery w/o ang pctrs Blockage of [...] Precordial chest pain (Primary) 2. Atherosclerosis of [place] coronary artery, unspecified whether anginapresent, unspecified whether [place] or transplanted heart - Lipid Panel; Future [...] up. Jocelyne Jordan MD Cardiology and Sleep [facility] 03/01/2025 Please note that this explicitly excludes time spent on other separatebillable services such as performing procedures or test interpretation,when applicable. This note was created using dictation software which occasionallytranscribes nonsensical phrases. Please contact the provider if anyclarification is needed. us Silva Jordan MD ECG ORDERABLES Final Result from Last 3 Months Insurance MEDICAID [place] AETNA MEDICARE ADVANTAGE Care Teams Traffic Technician Relationship Specialty Start Date End Date Hannah Turner APRN [address] [place] [address] [facility] [id number] PCP - General Internal Medicine 07/06/24
--- OUTSIDE RECORDS SUMMARY | 2025-05-19 12:47 | XMS_ITS | Encounter Summary ---
[facility] Address [address] [place] [address] Care Team Providers Care Living Skills Advisor Name Role Phone Hannah Turner APRN Primary Care Provider [phone] Encounter Details Date Type Department Care Team (Late Contact Info) Description 03/09/2025 Results Follow-Up [facility] [address] [phone] [...] Description 08/30/2025 1:45 PM EST Office Visit [facility] [address] [phone] Silva Jordan MD [address] [place] [address] documented as of this encounter Visit Diagnoses Not on filedocumented in this encounter Care Teams Living Skills Advisor Relationship Specialty Start Date End Date Hannah Turner APRN [address] [place], [place] [address], [place] [address] PCP - General Internal Medicine 07/06/24 documented as of this encounter
--- OUTSIDE RECORDS SUMMARY | 2025-05-19 12:47 | XMS_ITS | Clinical Summary ---
Author Organization [facility] Address [address] [place] [address] Care Team Providers Care Channel Executive Name Role Phone Melisa Lilly DDS Unavailable + Isis Burroughs Unavailable Unavail able Osiris Chu Primary Care Provider [phone] Allergies Active Allergy Reactions Criticality Noted Date [...] 1972 [facility]-Depression Screening 1972 [facility]-HIV Screening [facility]-Medicare Annual Wellness (AWV) 1972 [facility]-Infant/Child/Adol SDOH [...] 2) 2022 Dental Oral Exam 10/21/2022 04/19/2022 Dental X-Ray: Full Mouth 04/20/2025 04/19/2022 [id number] Vaccine (2 - season) 2025 05/03/2021 [facility]-Influenza Vaccine (#1) 2025 05/22/2017, [facility]-Hepatitis A [...] Recently Relevant to Health Maintenance Results * [place] Hepatitis C Antibody (08/13/2018 8:01 PM EST) Pathologist [facility] Christie Hepatitis C Ab NEGATIVE Reference Range: Negative SUNQUEST 08/13/2018 8:01 PM EST 08/13/2018 8:36 PM EST us Historical Provider LAB BLOOD ORDERABLES Final R esult SUNQUEST from Last 3 Months or Most Recently Relevant to Health Maintenance Insurance [place] [employer] MEDICARE Care Teams Channel Executive Relationship Specialty Start Date End Date Osiris Chu PA [address] [place] [address] PCP - General 10/01/22 Melisa Lilly DDS [address] [facility] [address] [place] [address] Dentist Dentist 07/18/22 Isis Burroughs Dentislissette 07/18/22
--- NOTE | 2025-05-19 12:48 | MR_ITS ---
FINAL REPORT TECHNIQUE: Multiplanar and multisequence imaging the left knee was obtained without contrast. CLINICAL HISTORY: LT KNEE PAIN COMPARISON: Report from prior MR dated 01/18/2021 FINDINGS: Bones: There is no acute fracture or marrow edema. The joint space is preserved. There are no full thickness cartilage defects. Menisci: No meniscal tear is present. Ligaments: There is abnormal signal in the anterior cruciate ligament, however the fibers are intact. The PCL and collateral ligaments are intact. Tendons/Muscles: The quadriceps and patellar tendons are within normal limits. There is distal patellar gnosis. The biceps femoris tendon and iliotibial tract are intact. The popliteus tendon is normal. Other: There is no joint effusion. Remaining soft tissues are normal. IMPRESSION: No acute osseous abnormality, meniscal tear, or ligament tear. No supporting structure injury. Patellar tendinosis is present. Reviewed, Interpreted and Dictated by Marisol Kraft MD Transcribed by Damaris Springer Authenticated and . [facility]
--- OUTSIDE RECORDS SUMMARY | 2025-05-19 13:47 | XMS_ITS | CCD ---
Author Organization Unknown Care Team Providers Care Generator Rebuilder Name Role Phone Unavailable Primary Care Provider Unavailabl e Unavailable Chronic Care Management Unavaila ble Summary Purpose DataExchange Insurance Providers Payer name Policy type / Coverage type Covered libertarian ID Effective Begin Date Effective End Date [facility] [id number] Unknown Unknown Family History Family History data not found Medication Administered No Medication Administered data Reason For Visit No Reason For Visit data Medical Equipment No Medical Equipment data Advance Directives No Advance Directive data
== END 2025-05-19 23:59 | disposition home or self-care (01) ==
LOC: RAD 12:45
PROVIDERS: PCP Nurse Practitioner Family; Visit Provider Orthopaedic Surgery Adult Reconstructive Orthopaedic Surgery
DX: M76.52 Patellar tendinitis, left knee (principal); M17.12 Unilateral primary osteoarthritis, left knee
CPT/HCPCS: 73721

== ENCOUNTER 2025-06-04 10:07 | Outpatient (CLI) | payer MEDICARE, MEDICAID, SELFPAY ==
[2025-06-04 16:50] LABS: Hematocrit 49.8 % (42.0-52.0); Hemoglobin 17.4 g/dL (14.1-18.0); Immature Granulocytes % 0.3 %; Mean Corpuscular HGB Conc 34.9 g/dL (31.8-35.4); Mean Corpuscular Hemoglobin 30.4 pg (27.0-31.2); Mean Corpuscular Volume 87.1 fl (80-94); Nucleated Red Blood Cells % 0 %; Platelet Count 229 K/mm3 (142-424); Red Blood Count 5.72 M/mm3 (4.60-6.20); Red Cell Distribution Width-SD 38.3 fL; White Blood Count 7.6 K/mm3 (4.8-10.8)
[2025-06-04 17:44] LABS: Thyroid Stimulating Hormone 1.44 uIU/mL (0.465-4.68)
[2025-06-04 18:03] LABS: Vitamin B12 248 pg/mL (239-931)
[2025-06-04 19:33] LABS: Ferritin 49.3 ng/ml (17.9-464)
[2025-06-04 19:36] LABS: Hemoglobin A1C 6.7 % (4.0-6.0)
--- OUTSIDE RECORDS SUMMARY | 2025-06-07 10:18 | XMS_ITS | Referral Summary ---
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 Gender Identity Not on file Sexual Orientation Not on file Plan of Treatment Upcoming Encounters Date Type Department Care Team (Late st Contact Info) Description 06/28/2025 9:27 AM EST Hospital Encounter [facility] Surgery Department [address] [place] [address] Gilles Oswald MD [address] [place] [address] 06/28/2025 9:27 AM EST - 06/28/2025 11:24 AM EST Surgery [facility] Surgery Department [address] [place] [address] Gilles Oswald MD [address] [place] [address] INSPIRE Scheduled Procedures Name Priority Associated Diagnoses Date/Ti me INSERTION, VAGUS NERVE STIMULATOR Obstructive sleep apnea (adult) (pediatric) 06/28/2025 9:27 AM EST Goals Goal Patient Goal Type Associated Problems Recent Progress Patient-Stated? Author Autogenerat ed Goal Care Plan Autogenerated Problem No Nicole Benitez Additional Health Concerns Active Problems Noted Date Diagnosed Date Autogenerated Problem 05/05/2025 Insurance MEDICARE PART A B AETNA [facility] ADV MEDICAID OF [id number]
--- OUTSIDE RECORDS SUMMARY | 2025-06-07 10:18 | XMS_ITS | Clinical Summary ---
Author Organization [facility] Address [address] [place] [address] Care Team Providers Care County Attorney Name Role Phone Melisa Lilly DDS Unavailable + Isis Burroughs Unavailable Unavail able Osiris Chu Primary Care Provider [phone] Allergies Active Allergy Reactions Criticality Noted Date [...] 1972 [facility]-Depression Screening 1972 [facility]-HIV Screening 1972 [facility]-Medicare Annual Wellness (AWV) 1972 [facility]-Infant/Child/Adol SDOH Screenings [...] 04/19/2022 Dental X-Ray: Full Mouth 04/20/2025 04/19/2022 [id number] Vaccine (2 - season) 2025 05/03/2021 [facility]-Influenza [...] Recently Relevant to Health Maintenance Results * [place] Hepatitis C Antibody (08/13/2018 8:01 PM EST) Pathologist [facility] Christie Hepatitis C Ab NEGATIVE Reference Range: Negative SUNQUEST 08/13/2018 8:01 PM EST 08/13/2018 8:36 PM EST us Historical Provider LAB BLOOD ORDERABLES Final R esult SUNQUEST from Last 3 Months or Most Recently Relevant to Health Maintenance Insurance [place] [employer] [employer] MEDICARE Care Teams County Attorney Relationship Specialty Start Date End Date Osiris Chu PA [address] [place] [address] PCP - General 10/01/22 Melisa Lilly DDS [address] [facility] [address] [place] [address] Dentist Dentist 07/18/22 Isis Burroughs Dentislissette 07/18/22
--- OUTSIDE RECORDS SUMMARY | 2025-06-07 10:18 | XMS_ITS | Clinical Summary ---
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 Gender Identity Not on file Sexual Orientation Not on file Plan of Treatment Upcoming Encounters Date Type Department Care Team (Late st Contact Info) Description 06/28/2025 9:27 AM EST Hospital Encounter [facility] Surgery Department [address] [place] [address] Gilles Oswald MD [address] [place], [place] [id number] 06/28/2025 9:27 AM EST - 06/28/2025 11:24 AM EST Surgery [facility] Surgery Department [address] [place] [address] Gilles Oswald MD [address] [place] [address] INSPIRE Scheduled Procedures Name Priority Associated Diagnoses Date/Ti me INSERTION, VAGUS NERVE STIMULATOR Obstructive sleep apnea (adult) (pediatric) 06/28/2025 9:27 AM EST Health Maintenance Due Date Last [...] 2) 2022 COVID-19 VACCINE (1 - season) 2025 Influenza Vaccine (#1) 2025 Goals Goal Patient Goal Type Associated Problems Recent Progress Patient-Stated? Author Autogenerat ed Goal Care Plan Autogenerated Problem No Nicole Benitez Additional Health Concerns Active Problems Noted Date Diagnosed Date Autogenerated Problem 05/05/2025 Insurance MEDICARE PART A B AETNA MCR ADV MEDICAID OF [place]
--- OUTSIDE RECORDS SUMMARY | 2025-06-07 10:18 | XMS_ITS | Encounter Summary ---
Author Organization [facility] Address [address] [place] [address] Care Team Providers Care Tourist Information Assistant Name Role Phone Hannah Turner APRN Primary Care Provider [phone] Encounter Details Date Type Department Care Team (Late Contact Info) Description 03/09/2025 Results Follow-Up [facility]IOLOG[facility] [address] [address] Silva Jordan MD [address] [place] [address] Social History Tobacco Use Types [...] Description 08/30/2025 1:45 PM EST Office Visit [facility] [address] [address] Silva Jordan MD [address] [place] [address] documented as of this encounter Visit Diagnoses Not on filedocumented in this encounter Care Teams Tourist Information Assistant Relationship Specialty Start Date End Date Hannah Turner APRN [address] [place], [place] [address], [place] [address] PCP - General Internal Medicine 07/06/24 documented as of this encounter
--- OUTSIDE RECORDS SUMMARY | 2025-06-07 10:18 | XMS_ITS | Clinical Summary ---
Author Organization [facility] Address [address] [place] [address] Care Team Providers Care Circulation Sales Representative Name Role Phone Hannah Turner APRN Primary Care Provider + [phone] Allergies Active Allergy Reactions Criticality Noted Date [...] Makes chest pain assessment difficult Atherosclerosis of tuscarora coronary artery 2022 Overview (01/28/2023): Plan stress testing for further evaluation. Assessment & Plan (07/07/2024 1:52 PM EST): Stable and on medical therapy. EKG reviewed and no changes. Orders: ECG 12 Lead Assessment & Plan (10/18/2022 9:31 PM EST): Heart catheterization reviewed. History of LAD stenting. Encounters Date Type Department Care Team Description 03/09/2025 Results Follow-Up [facility] [address] [place] [address] Silva Jordan MD from Last 3 Months [...] Description 08/30/2025 1:45 PM EST Office Visit [facility] [address] [address] Silva Jordan MD [address] [place] [address] Health Maintenance Due Date Last Done Comments [...] Comments HEMOGLOBIN A1C Routine 03/08/2025 Atherosclerosis of tuscarora coronary artery, unspecified whether angina present, unspecified whether tuscarora or transplanted heart Type 2 diabetes mellitus without complication, without long-term current use of insulin LIPID PANEL Routine 03/08/2025 Atherosclerosis of tuscarora coronary artery, unspecified whether angina present, unspecified whether tuscarora or transplanted heart Type 2 diabetes mellitus without complication, without long-term current use of insulin COMPREHENSIVE METABOLIC PANEL Routine 03/08/2025 Atherosclerosis of tuscarora coronary artery, unspecified whether angina present, unspecified whether tuscarora or transplanted heart Type 2 diabetes mellitus without complication, without long-term current use of insulin from Last 3 Months Results * Hemoglobin A1c (03/08/2025) Blood us Silva Jordan MD LAB BLOOD ORDERABLES Final R esult Performing Organization Address [facility] [address]/ZIP Co de Phone Number [facility]
[address] [place] [address], * Lipid Panel (03/08/2025) Blood us Silva Jordan MD LAB BLOOD ORDERABLES Final R esult [facility]
[address] [place] [address], * Comprehensive Metabolic Panel (03/08/2025) Blood us Silva Jordan MD LAB BLOOD ORDERABLES Final R esult [facility]
[address] [place] [id number], [place] [phone] from Last 3 Months Insurance MEDICAID [place] AETNA MEDICARE ADVANTAGE Care Teams Circulation Sales Representative Relationship Specialty Start Date End Date Hannah Turner APRN [facility] [address] [facility] [address] [place] [address] PCP - General Internal Medicine 07/06/24
--- OUTSIDE RECORDS SUMMARY | 2025-06-07 11:18 | XMS_ITS | CCD ---
Author Organization Unknown Care Team Providers Care Port Cdl A Driver Name Role Phone Unavailable Primary Care Provider Unavailabl e Unavailable Chronic Care Management Unavaila ble Summary Purpose DataExchange Insurance Providers Payer name Policy type / Coverage type Covered constitution party ID Effective Begin Date Effective End Date [facility] [id number] Unknown Unknown Family History Family History data not found Medication Administered No Medication Administered data Reason For Visit No Reason For Visit data Medical Equipment No Medical Equipment data Advance Directives No Advance Directive data
== END 2025-06-04 23:59 | disposition home or self-care (01) ==
LOC: LAB.DROPOF 06-07 10:07
PROVIDERS: PCP Nurse Practitioner Family; Visit Provider Nurse Practitioner Family
DX: E11.9 Type 2 diabetes mellitus without complications (principal); R25.1 Tremor, unspecified; L65.9 Nonscarring hair loss, unspecified
CPT/HCPCS: 82525; 82607; 82728; 83036; 84443; 85025

== ENCOUNTER 2025-06-18 15:17 | Outpatient (CLI) | payer MEDICARE, MEDICAID, SELFPAY ==
--- OUTSIDE RECORDS SUMMARY | 2025-06-18 15:21 | XMS_ITS | Clinical Summary ---
Author Organization [facility] Address [address] [place] [address] Care Team Providers Care Cigar Packer Name Role Phone Hannah Turner APRN Primary Care Provider + [phone] Allergies Active Allergy Reactions Criticality Noted Date [...] Makes chest pain assessment difficult Atherosclerosis of circle coronary artery 2022 Overview (01/28/2023): Plan stress testing for further evaluation. Assessment & Plan (07/07/2024 1:52 PM EST): Stable and on medical therapy. EKG reviewed and no changes. Orders: ECG 12 Lead Assessment & Plan (10/18/2022 9:31 PM EST): Heart catheterization reviewed. History of LAD stenting. Encounters Date Type Department Care Team Description 06/18/2025 Telephone [facility] [address] [address] Silva Jordan MD 06/10/2025 Telephone [facility] [address] [facility] [address] [place] [phone] Silva Jordan MD from Last 3 Months [...] Description 08/30/2025 1:45 PM EST Office Visit [facility] [address] [address] Silva Jordan MD [address] [place] [address] Health Maintenance Due Date Last Done [...] Comments HEMOGLOBIN A1C Routine 03/08/2025 Atherosclerosis of circle coronary artery, unspecified whether angina present, unspecified whether circle or transplanted heart Type 2 diabetes mellitus without complication, without long-term current use of insulin from Last 3 Months or Most Recently Relevant to Health Maintenance Results * Hemoglobin A1c (03/08/2025) Blood us Silva Jordan MD LAB BLOOD ORDERABLES Final R esult [facility]
[address] [place] [id number], from Last 3 Months or Most Recently Relevant to Health Maintenance [place] [address] MEDICAID [place] AETNA MEDICARE ADVANTAGE Care Teams Cigar Packer Relationship Specialty Start Date End Date Hannah Turner APRN [address] [place], [place] [address] PCP - General Internal Medicine 07/06/24
--- OUTSIDE RECORDS SUMMARY | 2025-06-18 15:21 | XMS_ITS | Encounter Summary ---
Author Organization [facility] Address [address] [place] [id number] Care Team Providers Care Director Of Training Name Role Phone Hannah Turner APRN Primary Care Provider [phone] Encounter Details Date Type Department Care Team (Late st Contact Info) Description 06/18/2025 Telephone [facility] [address] [place] [address] [...] encounter Miscellaneous Notes * Telephone Encounter - Quynh Burciaga RN - 06/18/2025 2:42 PM EDT Discussed with Dr Jordan who has instructed that pt does not need to hold Aspirin. Did call and speak with Sayra in pre-op admission intake. Has requested that we send a letter stating that there isno need to hold aspirin. * Telephone Encounter - Quynh Burciaga RN - 06/18/2025 8:28 AM EDT Pt is scheduled on Saturday for general anesthesia for inspire implant. Cardiac clearance including Plavix hold has been obtained by [facility] however pt is on Aspirin 81 mg daily and they are inquiring if that needs to be held as well as Plavix.Wanting us to send Aspirin hold instructions to [facility] at [phone] documented in this encounter Plan of Treatment Upcoming Encounters Date Type Department Care Team (Late st Contact Info) Description 08/30/2025 1:45 PM EST Office Visit [facility] [address] [address] Silva Jordan MD [address] [place] [address] documented as of this encounter Visit Diagnoses Not on filedocumented in this encounter Care Teams Director Of Training Relationship Specialty Start Date End Date Hannah Turner APRN [address] [place] [address] PCP - General Internal Medicine 07/06/24 documented as of this encounter
--- OUTSIDE RECORDS SUMMARY | 2025-06-18 15:21 | XMS_ITS | Referral Summary ---
Author Organization [facility] ([place], [place], [place], [place]) Address [address] [place] [address] Care Team Providers Care Outboard Motor Assembler Name Role Phone Unavailable Primary Care Provider Unavailabl e Medications clopidogreL (PLAVIX) 75 mg tablet Take 1 tablet (75 mg total) by mouth daily. 03/10/2025 Active metFORMIN (GLUCOPHAGE) 1000 MG tablet Take 1 tablet (1,000 mg total) by mouth 2 (two) times daily. 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 Gender Identity Not on file Sexual Orientation Not on file Plan of Treatment Upcoming Encounters Date Type Department Care Team (Late st Contact Info) Description 06/21/2025 1:00 PM EDT Hospital Encounter [facility] Preadmission Testing [address] [facility] [address] [place] [address] 06/28/2025 9:27 AM EST Hospital Encounter [facility] Surgery Department [address] [place] [address] Gilles Oswald MD [address] [place] [address] 06/28/2025 9:27 AM EST - 06/28/2025 11:24 AM EST Surgery [facility] Surgery Department [address] [place] [address] Gilles Oswald MD [employer] [address] [place]IRE Scheduled Procedures Name Priority Associated Diagnoses Date/Ti me INSERTION, VAGUS NERVE STIMULATOR Obstructive sleep apnea (adult) (pediatric) 06/28/2025 9:27 AM EST Goals Goal Patient Goal Type Associated Problems Recent Progress Patient-Stated? Author Autogenerat ed Goal Care Plan Autogenerated Problem No Benitez, Nicole S Additional Health Concerns Active Problems Noted Date Diagnosed Date Autogenerated Problem 05/05/2025 [place] [address] AETNA [facility] ADV MEDICAID [id number]
--- OUTSIDE RECORDS SUMMARY | 2025-06-18 15:21 | XMS_ITS | Clinical Summary ---
Author Organization [facility] Address [address] [place] [address] Care Team Providers Care Front Office Representative Name Role Phone Melisa Lilly DDS Unavailable + Isis Burroughs Unavailable Unavail able Osiris Chu Primary Care Provider [phone] Allergies Active Allergy Reactions Criticality Noted Date [...] 1972 [facility]-Depression Screening 1972 [facility]-HIV Screening 1972 [facility]-Medicare Annual Wellness (AWV) 1972 [facility]-Infant/Child/Adol [...] 04/19/2022 Dental X-Ray: Full Mouth 04/20/2025 04/19/2022 [id number] Vaccine (2 - season) 2025 05/03/2021 [facility]-Influenza [...] Recently Relevant to Health Maintenance Results * [place] Hepatitis C Antibody (08/13/2018 8:01 PM EST) Pathologist [facility] Christie Hepatitis C Ab NEGATIVE Reference Range: Negative [facility] 08/13/2018 8:01 PM EST 08/13/2018 8:36 PM EST us Historical Provider LAB BLOOD ORDERABLES Final R esult [facility] from Last 3 Months or Most Recently Relevant to Health Maintenance Insurance [place] [employer] MEDICARE Care Teams Front Office Representative Relationship Specialty Start Date End Date Osiris Chu PA [address] [place] [address] PCP - General 10/01/22 Melisa Lilly DDS [address] [facility] [address] [place] [address] Dentist Dentist 07/18/22 Isis Burroughs Dentislissette 07/18/22
--- OUTSIDE RECORDS SUMMARY | 2025-06-18 15:21 | XMS_ITS | Encounter Summary ---
[facility] Organization [facility] Address [address] [place] [address] Care Team Providers Care Diesel Mechanic Name Role Phone Hannah Turner [place] Primary Care Provider + [phone] Encounter Details Date Type Department Care Team (Late st Contact Info) Description 06/10/2025 Telephone [facility] [address] [facility] [address] [place] [address] Silva Jordan MD [address] [place] [address] Social History Tobacco Use Types Packs/Day Years [...] encounter Miscellaneous Notes * Telephone Encounter - Liv Esteban MA - 06/10/2025 2:14 PM EDT Called and let patient know, patient understood. * Telephone Encounter - Silva Jordan MD - 06/10/2025 1:42 PM EDT Ok to proceed, hold plavix 7 days prior. Resume as soon as able post op. * Telephone Encounter - Liv Esteban MA - 06/10/2025 11:16 AM EDT REQUEST FOR CARDIAC CLEARANCE Caller name: Vinay Alarcon Surgeon's name: Dr. Oswald Type of planned surgery: IMPLANT OF INSPIRE Date of planned surgery: 06/28/2025 Type of anesthesia: GENERAL Have you been experiencing chest pain or shortness of breath? NO Is your doctor requesting for you to stop any of your medications prior to your surgery? PLAVIX, ASA 81MG, CELEBREX Where should we fax the clearance to? [phone] Any new symptoms since last OV? NO Any worsening of edema or worsening palpitations? NO Any major medical issues since last OV , ER VISITS, we need to know? NO Is the patient on Eliquis, xarelto, pradaxa, Coumadin/Warfarin? NO Is the patient on aspirin? YES 81MG Is the patient on brilinta (ticagrelor), plavix (clopidogrel), prasugrel (effient)? PLAVIX Is the patient on medications like mounjaro or ozempic? NO Last EKG? 03/01/2025 Last stress test? 03/11/2023 Last echo? 10/18/2022 Last heart cath or CCTA? 12/03/2018 Last OV? 03/01/2025 Do you have a history of AMBROCIO? YES If AMBROCIO, are you following your treatment plan, wearing CPAP/BIPAP? In the past been off PAP therapyfor a year. Please advise patient that a provider must review the above information and their chart to determine if procedure is safe. If this is an urgent procedure please notify providers farzana and document. * Telephone Encounter - Aruna Aparicio RegSched Rep - 06/10/2025 8:[address] Oswald is requesting cardiac clearance for implant of inspire. Scheduled 06/28/25. Form in the chart. documented in this encounter Plan of Treatment Upcoming Encounters Date Type Department Care Team (Late st Contact Info) Description 08/30/2025 1:45 PM EST Office Visit [facility] C[facility] [address] [place] [phone] Silva Jordan MD [address] [place] [address] documented as of this encounter Visit Diagnoses Not on filedocumented in this encounter Care Teams Diesel Mechanic Relationship Specialty Start Date End Date Hannah Turner APRN [facility] [address] [address] PCP - General Internal Medicine 07/06/24 documented as of this encounter
--- OUTSIDE RECORDS SUMMARY | 2025-06-18 15:21 | XMS_ITS | Clinical Summary ---
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 Gender Identity Not on file Sexual Orientation Not on file Plan of Treatment Upcoming Encounters Date Type Department Care Team (Late st Contact Info) Description 06/21/2025 1:00 PM EDT Hospital Encounter [facility] Preadmission Testing [address] [facility] [address] [place] [address] 06/28/2025 9:27 AM EST Hospital Encounter [facility] Surgery Department [address] [place] [address] Gilles Oswald MD [address] [place] [address] 06/28/2025 9:27 AM EST - 06/28/2025 11:24 AM EST Surgery [facility] Surgery Department [address] [place] [address] Gilles Oswald MD [facility] [address] [address] [place]IRE Scheduled Procedures Name Priority Associated Diagnoses Date/Ti me INSERTION, VAGUS NERVE STIMULATOR Obstructive sleep apnea (adult) (pediatric) 06/28/2025 9:27 AM EST Health Maintenance Due Date Last Done Comments CT Colonography 1972 Colonoscopy 1972 Colorectal Cancer Screening 1972 FOBT/FIT 1972 Fit-DNA (Cologuard) 1972 Sigmoidoscopy 1972 Depression Screening (12+) 1984 Tobacco Cessation Counseling and Screening (12+) 1984 HIV Screening 1987 Hepatitis C Screening 1990 DTAP/TDAP/TD VACCINES (1 - Tdap) 1991 Lipid Panel 2007 Medicare Initial AWV [id number] 09/27/2018 Pneumococcal 50+ years (1 of 1 - PCV) 2022 COVID-19 VACCINE (2 - season) 04/26/202503/2021 Influenza Vaccine (#1) 2025 06/03/2024 Shingles Vaccine (Zoster) Completed 08/28/2023, Goals Goal Patient Goal Type Associated Problems Recent Progress Patient-Stated? Author Autogenerat ed Goal Care Plan Autogenerated Problem No Nicole Benitez Additional Health Concerns Active Problems Noted Date Diagnosed Date Autogenerated Problem 05/05/2025 [place] [id number] AETNA MCR AD[place] MEDICAID [place]
--- OUTSIDE RECORDS SUMMARY | 2025-06-18 15:21 | XMS_ITS | Data Portability ---
Author Organization [facility]U [place] ADMIN Address [address] [place] [address] Care Team Providers Care Director Ship Name Role Phone FARIHA JOHNSON Family Medicine [phone] FARIHA JOHNSON Primary Care Provider VINAY SMITH Primary Care Provider Assessment No assessment recorded. Plan of Treatment Reminders Order Date Submit Date Provider Last Modified By Organization Details Last Modified Time Details Appointments None recorded. Lab HbA1c (hemoglobin A1c), blood 2023 024 [facility], [address], [address], [place], [address], 4 09:14:18 testosteron e, free + total, serum 2023 024 [facility], [address], [address], [place], [address], 4 08:43:19 PSA, serum or plasma 2023 024 [facility], [address], [address], [place], [address], 4 08:43:19 magnesium, serum or plasma 2023 024 [facility], [address], [address], [place], [address], 4 08:43:19 lipid panel, serum 2023 024 [place] [facility], [address], [address], [place], [address], 4 08:43:18 vitamin B12 + folate, serum or blood 2023 024 [place] [facility], [address], [address], [place], [address], 4 08:43:03 CMP, serum or plasma 2023 024 [place] [facility], [address], [address], [place], [address], 4 08:43:19 influenza virus A + B + SARS-CoV-2 (COVID19) Ag panel, rapid IA, upper respiratory specimen 2022 023 [email or web address] 2 [facility], [address], [place], [address], 3 15:54:54 rapid strep group A, throat 2022 023 [email or web address] 2 [facility], [address], [place], [address], 3 15:50:35 Referral None recorded. Procedures None recorded. Surgeries None recorded. Imaging US, doppler, arterial - Left LE pain starting in calf and migrating to back of thigh and buttock x 3+ weeks. No obvious edema [address] (Centralized Scheduling), [address], [place], [address], 4 09:35:07 Medication Orders metformin 1,000 mg tablet 2023 024 [facility], [address] [facility] [address] [place], [id number], 4 14:37:45 omeprazole 20 mg capsule,del ayed release 2023 024 [facility], [address] [place] [address] [address] [place], [id number], 4 14:50:30 atorvastati n 20 mg tablet 2023 024 [facility], [address] [place] [address] [address] [place], [id number], 4 15:44:41 metoprolol succinate ER 25 mg tablet,exte nded release 24 hr 2023 024 [facility], [address] [place] [address] [address] [place], [id number], 4 11:58:47 clopidogrel 75 mg tablet 2023 024 [facility], [address] [place] [address] [address] [place], [id number], 4 14:37:44 ibuprofen 600 mg tablet 2023 024 [facility], [address] [place] [address] [address] [place], [id number], 4 15:44:48 citalopram 20 mg tablet [address], [place], [address], 4 11:06:19 prednisone 20 mg tablet 2022 023 [facility], [address] [place] [address] [address] [place], [id number], 3 11:09:23 Celestone Soluspan 6 mg/mL suspension for injection 2022 023 [email or web address] Not available 4 17:11:17 benzonatate 200 mg capsule 2022 023 [email or web address], [address] [place] [address] [address] [place], [id number], 4 17:02:50 prednisone 20 mg tablet 2022 023 [facility], [address] [place] [address] [address] [place], [id number], 3 16:13:27 Patient TargetsNo targets recorded. Patient InstructionsNo instructions recorded. Reason for Referral None Reported. Results Created Date Observation Date Name Description Value Unit Range Abnormal Flag Note LastModifiedBy Organization Detail LastModifiedTime 05/07/2005/07/2023 influ dav virus A + B + SARS- CoV-2 (COVI D19) Ag panel , rapid IA, upper respi rator y speci men FLU A negati ve Not Available [address], [place], [address], 05/07/2023 15:36:46 05/07/20 23 05/07/2023 influ dav virus A + B + SARS- CoV-2 (COVI D19) Ag panel , rapid IA, upper respi rator y speci men FLU B negati ve Not Available [address], [place], [address], 05/07/2023 15:36:46 05/07/20 23 05/07/2023 influ dav virus A + B + SARS- CoV-2 (COVI D19) Ag panel , rapid IA, upper respi rator y speci men SARS COV + SARS OV 2 negati ve Not Available [address], [place], [address], 05/07/2023 15:36:46 05/07/20 23 05/07/2023 rapid strep group A, throa t Strep negati ve Not Available [facility] [address], [place], [address], 05/07/2023 15:36:48 Result Notes None recorded. Problems Name Problem SNOMED Code Status Onset Date Resolution Date Notes Provider Name and Address Organization Details Recorded Time Small bowel obstruction 257074926 Active Alina Goldberg null, [place] - [facility] [place] & [place] 3 15:32:44 Anxiety 01911916 Active 2022 Alina Goldberg null[place] [facility] [place] 3 15:32:44 Asperger's disorder 75244477 Active 2022 Alina Goldberg null, [place] 3 15:32:44 Asthma 631022411 Active 2022 Alina Goldberg null[place] 3 15:32:44 Coronary arterioscleros is 23921167 Active 2022 Alina Goldberg null[place] 3 15:32:44 Diabetes mellitus 15857575 Active 2022 Alina Goldberg null, [place] [facility] [place] 3 15:32:44 Gastroesophage al reflux disease 932196201 Active 2022 Alina Cotterett Goldberg null, [place] [facility] [place] 3 15:32:44 Hiatal hernia 71054680 Active 2022 Alina Cotterett Goldberg null, [place] [facility] [place] 3 15:32:44 Problem Notes None recorded. Procedures Surgical History Date Name Laterality Status Provider Name and Address Organization Details Recorded Time 08/26/19 17 Cardiovascular Surgery completed Lizbeth MCKINNON - [facility] & [place] 09/05/2023 17:02:52 08/26/19 16 imaging guided percutaneous transluminal angioplasty of coronary artery with contrast completed Liv Jacksondi [place] - [facility] & [place] 01/29/2023 09:58:00 08/26/18 78 hernia repair completed Liv Jacksondi [place] - [facility] & [place] 01/29/2023 09:58:41 08/26/18 78 Abdominal Surgery completed Lizbeth MCKINNON - [facility] & [place] 09/05/2023 17:02:52 08/26/18 76 tympanostomy completed Liv Jacksondi [place] - [facility] & [place] 01/29/2023 09:59:17 08/26/18 76 Tonsillectomy/Gato oidectomy completed Lizbeth Louie [place] - [facility] & [place] 09/05/2023 17:02:52 tonsillectomy and adenoidectomy completed Liv MCKINNON - [facility] & [place] 01/29/2023 09:58:50 Imaging Results None recorded. Procedure Notes None recorded. Medical Equipment None Reported. Allergies Allergen ID Allergen Name Allergen Category Reaction Reaction Severity Criticality Documentation Date Start Date Code Code System Note Provider Name and Address Organization Details Recorded Time 60662 Benadryl medicatio n Not available Not available Not available 02/06/2023 44585 7 RxNorm liqui d MANE KHADRA cordova, [place] - [facility] & [place] 3 13:32:17 40013 Remeron medicatio n Not available Not available Not available 02/06/2023 97897 4 RxNorm MANE KHADRA art, [place] - [facility] & [place] 3 13:32:30 11838 diphenhyd ramine medicatio n Not available Not available Not available 03/01/2023 3498 RxNorm Other react ions and sever ities : 'Adve rse react ion to subst ance' . [place] Orellana [facility] & [place] 3 17:40:17 10739 mirtazapi ne medicatio n Not available Not available Not available 03/01/2023 75132 RxNorm Other react ions and sever ities : 'Adve rse react ion to subst ance' . [place] Orellana - [facility] & [place] 3 17:40:17 Medications Name Sig [...] Updated DateTime 4 177.8 cm 30 kg/m2 34871.5 1 g 97.5 [degF] 98 % 98 % 80 /min 120/78 mm[Hg] Lizbeth MCKINNON [facility] & [place] 4 17:01:32 Date Recorded Body height Body mass index (BMI) Body weight Body temperature Oxygen saturation Oxygen saturation in Arterial blood by Pulse oximetry Heart rate Pain severity - 0-10 verbal numeric rating [Score] - Reported Systolic And Diastolic Provider Name and Address Organization Details Last Updated DateTime 4 177.8 cm 30.2 kg/m2 05700.2 g 98.6 [degF] 98 % 98 % 90 /min 10 130/90 mm[Hg] Lizbethjessica Louie [facility] & [place] 4 16:29:33 Date Recorded Body height Body mass index (BMI) Body weight Body temperature Oxygen saturation Oxygen saturation in Arterial blood by Pulse oximetry Heart rate Systolic And Diastolic Provider Name and Address Organization Details Last Updated DateTime 4 177.8 cm 30.1 kg/m2 38976.4 g 98.7 [degF] 97 % 97 % 76 /min 118/84 mm[Hg] Lizbeth MCKINNON [facility] & [place] 4 15:05:54 Date Recorded Body height Body mass index (BMI) Body weight Body temperature Oxygen saturation Oxygen saturation in Arterial blood by Pulse oximetry Heart rate Systolic And Diastolic Provider Name and Address Organization Details Last Updated DateTime 3 177.8 cm 30.4 kg/m2 71806.5 8 g 97.7 [degF] 96 % 96 % 87 /min 150/82 mm[Hg] Alina Goldberg [facility] & [place] 3 15:38:31 Date Recorded Body height Body mass index (BMI) Body weight Oxygen saturation Oxygen saturation in Arterial blood by Pulse oximetry Heart rate Provider Name and Address Organization Details Last Updated DateTime 3 177.8 cm 30.4 kg/m2 12474.5 8 g 98 % 98 % 66 /min Jennifer Solis [place] - [facility] & [place] 13:44:16 Social History Question Answer Notes LastModified by Organizat ion Details LastModified Time Tobacco Smoking Status Never Smoker [facility] [place] [facility] [place] 01/29/2023 09:55:27 Do You Have An Advance Directive? No [email or web address] Information not available 09/05/2023 Are You Blind Or Do You Have Difficulty Seeing? No [email or web address] Information not available 09/05/2023 What Was The Date Of Your Most Recent Tobacco Screening? 08/09/2023 [email or web address] Information not available 09/05/2023 Sex: Male Functional Status Question Answer Note LastModified by Organizat ion Details LastModified Time Do you use any illicit or recreational drugs? No Information not available 01/29/2023 Do you or have you ever used any other forms of tobacco or nicotine? No [email or web address] Information not available 09/05/2023 What is your level of alcohol consumption? Occasional Information not available 01/29/2023 What is your exercise level? Occasional [email or web address] Information not available 09/05/2023 Mental Status None recorded. Family History Relationship Description Onset Age of this Age Resolved Age Notes LastModified by Organization Details LastModified Time Mother Anxiety disorder [email or web address] Not available 01/29 10:00:28 Mother Epilepsy [email or web address] Not availab le 01/29/2024 14:18:58 Father Coronary atherosclero sis [email or web address] Not available 01/29 10:00:49 Father Diabetes mellitus [email or web address] Not available 01/28 14:18:48 Unspecified Relation Peripheral arterial disease [email or web address] Not available 01/29 10:01:30 Brother Malignant neoplastic disease [email or web address] Not available 01/29 10:01:20 Medical History Condition Response Anxiety Disorder Y Diabetes Y Vision or Eye Problems Y Reflux/GERD Y Heart Disease Y Psychiatric/Mental Health Condition Y Back Problems Y Hypertension Y Neurological Problems Y Immunizations Vaccine Type Date Status Note Provider Nam e and Address Organization Details Recorded Time COVID-19 vaccine, vector-nr, rS-Ad26, PF, 0.5 mL 1 completed MANE KHADRA null, [place] [facility] [place] 02/14/2023 15:47:40 Hep A, adult 8 completed MANE KHADRA [place] 02/14/2023 15:47:40 Influenza, split virus, quadrivalent, PF 7 completed MANE KHADRA [place] 02/14/2023 15:47:40 Influenza, split virus, quadrivalent, PF 6 completed MANE KHADRA [place] 02/14/2023 15:47:40 zoster recombinant 3 completed Alina Goldberg null[place] 05/07/2023 15:32:18 zoster recombinant 4 completed Lizbeth Louie [place] 09/24/2023 16:30:03 Past Encounters Encounter ID Performer Location Encounter Start Date Encounter Closed Date Diagnosis/Indication Diagnosis SNOMED-CT Code Diagnosis ICD10 Code Diagnosis IMO Codes Diagnosis Note [id number] Fariha Goddard in, 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 Will call with results.Co unseled on dietary modificati ons and healthy eating habits.Cou nseled on decreasing stress levels,Rec ommend yearly eye exams Thyroid di sorder screening 553729753 Z13.29 Screening for malignant neoplasm of colon 923769357 Z12.11 He is up to date on colonoscop y. Will request records from [facility] for colonoscop ies. Screening for malignant neoplasm of prostate 854924245 Z12.5 Type 2 melvin betes mellitus 11700786 E11.9 Pain of ri ght elbow joint 6950523433 4703910 M25.521 Tylenol/Ib uprofen as needed.Ice . Rest.Will send for an xray.Will call with results. Late ejaculation 5100388 8 N53.11 Restless l egs syndrome 05669297 G25.81 [id number] Fariha Goddard [address] [place] [address] 02/07/2023 14:40:02 02/07/2023 14:51:45 [id number] Luis Villanueva MD [address] [place] [address] 02/11/2023 10:04:58 02/11/2023 10:19:57 Abdominal pain 17724198 R10.9 To ER for labs and CT of his abdomen. IV fluids and IV antiemetic s. [id number] Fariha Goddard [address] [address] 02/14/2023 15:44:29 02/14/2023 16:00:24 History of small bowel obstruction 7927990884 53887702 Z87.19 Continue liquid diet. Advance as tolerated. Follow up in 2 months or PRN if condition changes. [id number] Fariha Goddard [address] [place] [address] 03/29/2023 08:15:30 03/29/2023 08:33:42 Abnormal testosterone 255567155 R89.1 [id number] Fariha Goddard [address] [place] [address] 05/07/2023 15:19:38 05/07/2023 15:57:20 Cough 95570228 R05.9 Viral uppe r respiratory tract infection 924743264 J06.9 Humidifier at night.Take medication as directed.N niranjan saline rinses.Cou nseled patient on red flags/conc erns and when to go to ER.If symptoms persist or worsen RTC. [id number] Fariha Goddard in, [place] [facility] [address] [place] [address] [address] [place] [address] 08/09/2023 13:37:00 08/09/2023 14:02:24 Allergic reaction 258726247 T78.40XA [id number] Vinay Smith MD [facility] [address] [place] [address] 09/05/2023 16:12:52 09/09/2023 10:50:28 Anxiety 62131646 F41.9 Restart citalapram at 40 mg divided into 20 mg BID due to drowsy SE's from the 40 mg dose [id number] Vinay Smith MD [facility] [address] [place] [address] 09/24/2023 15:37:11 09/24/2023 16:53:49 Pain radiating to left leg 396332217 M79.605 Exam is not concerning for DVT, however it would be reasonable to r/o any arterial insufficie ncy. 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 F/U with Dr. Weldon Essential hypertension 69160141 I10 Refill Lisinopril 10 mg 1x daily, refill Metoprolol ER 25 1x daily Gastroesop hageal reflux disease 912776800 K21.9 Continue Omeprazole 20mg will refill #90 Male hypogonadism 280441 06 E29.1 Will check testostero ne and PSA, Continue testostero ne 1.6% gel pump 4 pumps a day Coronary arteriosclerosis 24105075 I25.10 Refill Clopidogre l 75 mg 1x daily. Health Concerns Section Related Observation LastModified by Organization Detai ls LastModified Time None Recorded Concern Status LastModified by Organization Details LastModified Time None Recorded Advance Directives Directive N: Payers Insurance Date Sequence Insurance Name Policy Number Policy Sanderson Covered Member ID Sanderson Member ID Guarantor Name 01/29/2024 2 MEDICAID-[facility] CHO[facility] - FFS/TRADITIONA L Vinay Alarcon [id number] Vinay Alarcon 01/29/2024 1 [id number] BC[place] OF [facility] MEDIBLUE PLUS (MEDICARE REPLACEMENT HMO) [id number] Vinay Alarcon [id number] Vinay Alarcon Notes Date Note Type Note Provider Name and Address Organization Details Recorded Time 05/07/2023 text/html ROS as noted in the HPI patient presents to clinic for cough, congestion, increased sinus drainage, and headache. He denies any chest pain or SOB. Denies any productive cough. Symptoms started yesterday. Denies any nausea/vomiting/di arrhea. Fariha Johnson, [place] [address], [place], [address], [facility] & [place] 05/07/2023 15:55:15 08/09/2023 text/html ROS as noted in the HPI patient presents to clinic for a rash on his back and arms. He states he went to the grocery store and when he came home he noticed it was itchy and burning. Denies any angioedema. Denies any SOB. Fariha Johnson, [place] [address], [place], [address], [facility] & [place] 08/09/2023 15:20:22 09/05/2023 text/html Former pt of [...] change. Vinay Smith MD [address], [place], [address], [facility] & [place] 09/06/2023 12:55:31 09/24/2023 text/html Pt presents c/o [...] stint Vinay Smith MD [address], [place], [address], [facility] & [place] 09/25/2023 08:16:46 11/07/2023 text/html ROS as noted in the HPI 53 year old Male wioth multiple medical problems, presents for F/U. Has recently been evaluated for his back injury and leg pain. He was last seen on September 24. He has seen a commercial property administrator and had doppler ultrasound done on left [...] issue. Vinay Smith MD [address], [place], [address], [facility] [place] 11/08/2023 08:45:52
--- OUTSIDE RECORDS SUMMARY | 2025-06-18 15:21 | XMS_ITS | Encounter Summary ---
[facility] Address [address] [place] [address] Care Team Providers Care Speech And Language Tutor Name Role Phone Hannah Turner APRN Primary Care Provider [phone] Encounter Details Date Type Department Care Team (Late Contact Info) Description 03/09/2025 Results Follow-Up [facility] [address] [address] Silva Jordan MD [address] [place] [address] Social History Tobacco Use Types Packs/Day [...] Silva Jordan MD [address] [place] [address] documented as of this encounter Visit Diagnoses Not on filedocumented in this encounter Care Teams Speech And Language Tutor Relationship Specialty Start Date End Date Hannah Turner APRN [address] [place], [place] [address], [place] [address] PCP - General Internal Medicine 07/06/24 documented as of this encounter
--- NOTE | 2025-06-18 15:30 | MR_ITS ---
FINAL REPORT TECHNIQUE: Multiplanar MR without contrast CLINICAL HISTORY: tremor worse when driving and eating has had all of his life per patient just has gotten worse with in the last few months COMPARISON: None FINDINGS: Diffusion sequences show no signal abnormality to indicate acute infarct. No mass, hemorrhage or edema is seen. There is mild generalized atrophy. Minimal punctate white matter signal changes in the parietotemporal region are nonspecific but probably age-appropriate white matter change. Ventricles are normal. Major vascular flow voids are intact. IMPRESSION: Unremarkable MR of the brain without contrast Reviewed, Interpreted and Dictated by Linnette Dockery MD Transcribed by Heydi Shukla Authenticated and [facility]
--- OUTSIDE RECORDS SUMMARY | 2025-06-18 16:21 | XMS_ITS | CCD ---
Author Organization Unknown Care Team Providers Care Parimutuel Cashier Name Role Phone Unavailable Primary Care Provider Unavailabl e Unavailable Chronic Care Management Unavaila ble Summary Purpose DataExchange Insurance Providers Payer name Policy type / Coverage type Covered alliance party ID Effective Begin Date Effective End Date [facility] [id number] Unknown Unknown Family History Family History data not found Medication Administered No Medication Administered data Reason For Visit No Reason For Visit data Medical Equipment No Medical Equipment data Advance Directives No Advance Directive data
== END 2025-06-18 23:59 | disposition home or self-care (01) ==
LOC: RAD 15:18
PROVIDERS: PCP Nurse Practitioner Family; Visit Provider Nurse Practitioner Family
DX: R25.1 Tremor, unspecified (principal)
CPT/HCPCS: 70551